=== PATIENT | male | born 1945 | race Caucasian/White ===

== ENCOUNTER 2025-02-11 08:30 | Emergency (ER) | payer MEDICARE, BC, SELFPAY ==
[2025-02-11 08:37] VITALS: BP 135/73; PULSE 60; RESP 18; TEMP 36.6; O2SAT 97; BMI 36.6
--- NOTE | 2025-02-11 08:37 | ED_ITS ---
HPI - General Adult General Date Seen: 02/11/25 Chief complaint: Urogenital Problems, Male Stated complaint: urinary problems Time Seen by Provider: 02/11/25 08:32 History of Present Illness HPI narrative: 80-year-old male with a history of hypertension, hypothyroidism, hyperlipidemia, cardiomyopathy, atrial fibrillation (on carvedilol, Lipitor, losartan, Eliquis, levothyroxine), and a history of thrombocytopenia (patient his say that it has been under surveillance for years and that he has seen hematology to the mail system and that he does not have a clear etiology for it. It is not thought to be ITP, TTP, or autoimmune. No known history of other bone marrow malignancy. Platelet count typically runs in the 60s and 70s. Hematology has recommended that if the platelet count never dropped below 50,000, that white be an appropriate time to than move forward with bone marrow biopsy and further workup). He presents to the ER this morning with development of dark colored reddish urine that began last night. No other symptoms. He has not noticed any trouble urinating, urgency, frequency, dysuria, hesitancy. No urinary obstruction. No abdominal pain, bladder pain, flank pain. No fever, chills, nausea. No weakness. He has no known injury. 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 They been working very hard getting their property here in [place] ready for summer and so he has been doing a lot of physical labor. No known injury. No other unusual bruising or bleeding. He just noticed that the urine was dark and bloody last night and again this morning. He is concerned that his platelet count might have dropped lower and could be contributing to the bleeding. Related Data Allergies Allergy/AdvReac Type Severity Reaction Status Date / Time erythromycin base Allergy Intermediate Rash Verified 02/11/25 08:37 PFSH PFS Social History Smoking Status: Never smoker How often do you have a drink containing alcohol: never How often do you have six or more drinks on one occasion: Never AUDIT-C Alcohol total score: 0 Non-prescribed substance use: denies use Exam Narrative: Exam Narrative: Constitutional: Appears well-developed and well-nourished. Alert. Conversant. Non toxic. HENT: Head: Atraumatic. Nose: Nose normal. Mouth/Throat: Oral mucosa is clear and moist. no trismus. Pharynx normal. Tonsils symmetric. No tonsillar enlargement, erythema, or exudate. Eyes: Conjunctivae normal. EOM normal. Pupils equal, round, and reactive to light. No scleral icterus. Neck: Normal range of motion. Neck supple. No tracheal deviation present. Cardiovascular: Normal rate, regular rhythm. No gallop. No friction rub. No murmur heard. Pulmonary/Chest: Effort normal. No stridor. No respiratory distress. No wheezes. No rales. No rhonchi . Abdominal: Soft. Bowel sounds normal. No distension. No mass. No tenderness. No rebound. No guarding. No CVA tenderness. Musculoskeletal: RUE: Normal range of motion. No tenderness. No deformity LUE: Normal range of motion. No tenderness. No deformity RLE: Normal range of motion. No edema. No tenderness. No deformity LLE: Normal range of motion. No edema. No tenderness. No deformity Neurological: Alert and oriented to person, place, and time. Normal strength. CN II-VII intact. No sensory deficit. GCS eye subscore is 4. GCS verbal subscore is 5. GCS motor subscore is 6. Normal coordination Skin: Skin is warm and dry. No rash noted. No pallor. Normal capillary refill. Psychiatric: Normal mood. Normal affect. Const: Vital Signs, click to edit/add: Vital Signs - 24 hr 02/11/25 08:37 Temperature 97.8 F Pulse Rate [Pulse Oximeter] 60 Respiratory Rate 18 Blood Pressure [Ri ght Upper Arm] 135/73 Pulse Oximetry 97 Oxygen Delivery Me thod Room Air Course Vital Signs Vital signs: Initial Vital Signs Temperature 97.8 F 02/11/25 08:37 Temperature Source Temporal Artery Scan 02/11/25 08:37 Pulse Rate 60 02/11/25 08:37 Respiratory Rate 18 02/11/25 08:37 Blood Pressure 135/73 02/11/25 08:37 Blood Pressure Mean 93 02/11/25 08:37 Pulse Oximetry 97 02/11/25 08:37 Oxygen Delivery Method Room Air 02/11/25 08:37 Vital Signs Temperature 97.8 F 02/11/25 08:37 Pulse Rate 60 02/11/25 08:37 Respiratory Rate 18 02/11/25 08:37 Blood Pressure 135/73 02/11/25 08:37 Pulse Oximetry 97 02/11/25 08:37 Oxygen Delivery Method Room Air 02/11/25 08:37 Temperature 97.8 F 02/11/25 08:37 Pulse Rate 60 02/11/25 08:37 Respiratory Rate 18 02/11/25 08:37 Blood Pressure 135/73 02/11/25 08:37 Pulse Oximetry 97 02/11/25 08:37 Oxygen Delivery Method Room Air 02/11/25 08:37 Medical Decision Making MDM Narrative Medical decision making narrative: Very pleasant 80-year-old gentleman who is on Eliquis for AFib and has a history of thrombocytopenia (idiopathic, typically runs in the 60s and 70s) presenting to the ER today with gross hematuria that started yesterday. No other symptoms with the hematuria. No UTI symptoms. No flank pain. No dizziness. Differential here is broad. Urinalysis confirms hematuria but shows absence of other signs of infection such as pyuria or nitrite. Kidney function tests are reassuring. No signs of acute renal failure. He has been very physically active lately which raise consideration for possible rhabdo. CK is detectable at 52 but not not dangerously elevated. CBC today shows platelet count actually up from his baseline up to 85. Hemoglobin is 13. White count slightly low at 3.5. CT scan of his abdomen pelvis is undertaken to look for stone and shows a bladder stone and a large prostate. No evidence for any obstructing kidney stones or hydronephrosis or other masses. At this point the patient is hemodynamically stable. Overall his urine is clearing here in the ER and is less bloody than it was last night. With reasonable clinical confidence that he safe for discharge and close outpatient follow-up with Urology. There is no signs of infection, kidney failure, urinary obstruction associated with this hematuria or bladder stone. Would recommend that he continue his regular medications for now. He will follow-up v with his urologist in the [facility] system. Lab Data Labs: Lab Results 02/11/25 02/11/25 Range/Units 09:20 09:25 WBC 3.52 L (4.50-11.00) K/uL RBC 4.15 L (4.30-5.90) m/uL Hgb 13.0 L (13.5-17.5) gm/dL Hct 37.9 (37.0-53.0) % MCV 91 (80-100) fL MCH 31 (26-34) pg MCHC 34 (32-36) gm/dL RDW Coeff of Niko 11.4 L (11.5-15.5) % Plt Count 85 L (140-440) K/uL Neut % (Auto) 56.0 (42.0-72.0) % Lymph % (Auto) 29.5 (20-44) % Pepin % (Auto) 11.1 H (0.0-11.0) % Eos % (Auto) 3.1 (0.0-7.0) % Baso % (Auto) 0.3 (0.0-3.0) % Neut # (Auto) 2.00 (1.7-7.0) K/uL Lymph # (Auto) 1.00 (0.90-2.90) K/uL Pepin # (Auto) 0.40 (0.00-0.90) K/UL Eos # (Auto) 0.10 (0.00-0.50) K/uL Baso # (Auto) 0.00 (0.00-0.30) K/uL Abs Immat Gran (auto) 0.00 (0.00-0.30) K/uL Imm/Tot Granulo (auto) 0.0 % Sodium 140 (135-149) mmol/L Potassium 4.4 (3.6-5.1) mmol/L Chloride 107 (96-114) mmol/L Carbon Dioxide 27 (20-32) mmol/L Anion Gap 6 L (7-15) mEq/L BUN 31 H (7-30) mg/dL Creatinine 1.1 (0.5-1.5) mg/dL Estimated Creat Clear 54.38 Estimated GFR 67 ml/min Glucose 99 (60-115) mg/dL Calcium 9.6 (8.4-10.6) mg/dL Total Creatine Kinase 52 L (54-186) U/L Urine Color Yellow (Yellow) Urine Appearance Clear (Clear) Urine pH 6.0 (5.0-8.5) Ur Specific Stevenson 1.020 (1.000-1.030) Urine Protein 1+ A (Negative) Urine Glucose (UA) Negative (Negative) Urine Ketones Negative (Negative) Urine Blood 3+ A (Negative) Urine Nitrite Negative (Negative) Urine Bilirubin Negative (Negative) Urine Urobilinogen 0.2 (0.2-1.0) Ur Leukocyte Esterase Negative (Negative) Urine RBC 50-100 A (0-2) Urine WBC 0-2 (0-5) Ur Squamous Epith Cells Few (None-Few) Urine Bacteria None (None) Imaging Data CT scan - abdomen: Attestation: I have reviewed the pertinent imaging results. Radiologist's impression: IMPRESSION: The kidneys are normal in size. There is no visible mass on this noncontrast study. No calcified calculus within either kidney or within the ureters. There is a stone in the bladder measuring 12 millimeters. Bladder wall thickness is normal. The prostate is significantly enlarged. Other nonacute appearing findings as above Discharge Plan Discharge Clinical Impression: Bladder calculi, Hematuria, Enlarged prostate Patient Disposition: Home, Self-Care Condition: Stable Instructions: Hematuria (ED), Bladder Stones (ED) Additional Instructions: So far your workup looks reassuring. Your platelet count is still low but is 85 today. Your kidney function looks good. Your urine sample confirms the blood but no signs of infection. Your scans show sign that you have a bladder stone which is probably rubbing the inside of your bladder and causing this bloody urine. It is okay for you to take her trip to [place]. Continue your regular meds. As we discussed, if you have any concerns such as fever, worsening blood in your urine, inability to urinate or blockage of your urethra, abdominal pain or kidney pain, please return to the your nearest ER for evaluation. Please follow-up with your urologist within the next 1-3 weeks for recheck. Follow Up/Referrals: Provider,Not a Local [Primary Care Provider, Family Practice] Stand Alone Forms: [employer] Info Instructions
[2025-02-11 09:28] LABS: Basophils Percent Auto 0.3 % (0.0-3.0); Eosinophils Percent Auto 3.1 % (0.0-7.0); Hematocrit 37.9 % (37.0-53.0); Lymphocytes Percent Auto 29.5 % (20-44); Mean Corpuscular HGB Conc 34 gm/dL (32-36); Mean Corpuscular Hemoglobin 31 pg (26-34); Mean Corpuscular Volume 91 fL (80-100); Monocytes Percent Auto 11.1 % (0.0-11.0); Platelet Count* 85 K/uL (140-440); RDW Coefficient of Variation % 11.4 % (11.5-15.5); Red Blood Count 4.15 m/uL (4.30-5.90); White Blood Count* 3.52 K/uL (4.50-11.00)
[2025-02-11 09:35] LABS: Appearance Urine Clear (Clear); Bilirubin Urine Negative (Negative); Blood Urine 3+ (Negative); Color Urine Yellow (Yellow); Glucose Urine Negative (Negative); Ketones Urine Negative (Negative); Leukocyte Esterase Urine Negative (Negative); Nitrite Urine Negative (Negative); Protein Urine 1+ (Negative); Urobilinogen Urine 0.2 (0.2-1.0)
[2025-02-11 09:38] LABS: Slide Review Reflex No
[2025-02-11 09:42] LABS: RBC Urine 50-100 (0-2); Squamous Epithelial Cell Urine Few (None-Few); WBC Urine 0-2 (0-5)
[2025-02-11 09:52] LABS: Chloride* 107 mmol/L (96-114); Potassium* 4.4 mmol/L (3.6-5.1); Sodium* 140 mmol/L (135-149)
[2025-02-11 09:55] LABS: Anion Gap 6 mEq/L (7-15); Blood Urea Nitrogen* 31 mg/dL (7-30); Carbon Dioxide* 27 mmol/L (20-32); Creatine Kinase* 52 U/L (54-186); Creatinine* 1.1 mg/dL (0.5-1.5); Est. Creatinine Clearance* 54.38; Estimated Glomerular Filt Rate 67 ml/min
[2025-02-11 09:56] LABS: Calcium* 9.6 mg/dL (8.4-10.6); Glucose* 99 mg/dL (60-115)
--- NOTE | 2025-02-11 10:30 | CRLHL7_ITS ---
For Patients: As a result of the 21st Century Cures Act, medical imaging exams and procedure reports are released immediately into your electronic medical record. You may view this report before your referring provider. If you have questions, please contact your health care provider. INDICATION: Hematuria COMPARISON: None TECHNIQUE: CT examination of the abdomen and pelvis was performed without intravenous contrast. Thin section axial images were obtained from the lung bases through the pubic symphysis. Oral contrast was not administered. Please note that all CT scans at this facility use dose modulation, iterative reconstruction, and/or weight-based dosing when appropriate to reduce radiation dose to as low as reasonably achievable. FINDINGS: LUNG BASES: Linear opacities at the lung bases are likely due to atelectasis.Heart size top-normal at the lung bases. Vascular calcifications and valvular calcifications noted.. LIVER/BILIARY SYSTEM:The liver is normal in size and configuration given the lack of intravenous contrast. There is no visible focal mass and there is no intra- or extra hepatic biliary ductal dilatation.The gall bladder appears normal. ADRENALS: Normal non-contrast appearance KIDNEYS, URETERS and BLADDER:The kidneys are normal in size. There is no visible renal cortical mass on this noncontrast study. There are no calculi within the kidneys or within the ureters. The ureters are not dilated. The bladder is distended. The prostate is significantly enlarged. There is a stone in the bladder measuring 12 millimeters. The most common cause of stones in the bladder is chronic stasis. SPLEEN:Normal non-contrast appearance. PANCREAS: Normal non-contrast appearance. RETROPERITONEUM and MESENTERY: There is no mass, adenopathy or aortic aneurysm. Atherosclerotic vascular calcification GASTROINTESTINAL SYSTEM: There is no evidence of diverticulitis, colitis, mechanical obstruction, or appendicitis. The small bowel as visualized appears normal.Fecal retention and scattered diverticulosis PELVIS: No free fluid or adenopathy.. OSSEOUS STRUCTURES and ABDOMINAL WALL: There is an age-appropriate appearance of the osseous structures.No significant abdominal wall defect. OTHER: No free fluid or free air. IMPRESSION: The kidneys are normal in size. There is no visible mass on this noncontrast study. No calcified calculus within either kidney or within the ureters. There is a stone in the bladder measuring 12 millimeters. Bladder wall thickness is normal. The prostate is significantly enlarged. Other nonacute appearing findings as above Please note that all CT scans at this facility use dose modulation, iterative reconstruction, and/or weight-based dosing when appropriate to reduce radiation dose to as low as reasonably achievable. Dictated by Winston Mackay MD @ 02/11/2025 11:11:42 AM (Electronically Signed)
--- OUTSIDE RECORDS SUMMARY | 2025-02-11 10:45 | XMS_ITS | Clinical Summary ---
Author Organization [facility] Address [address] [place] [id number] Care Team Providers Care Chairman & Chief Executive Officer Name Role Phone Sly Yanes MD Primary Care Provi gail Allergies Active Allergy Reactions Criticality Noted Date Comments Erythromycin Hives,Rash 08/19/2009 Medications calcium carbonate-vitam in D3, 600 mg-400 unit, (CALCIUM 600 + D) tabletIndicatio ns:vitamin & calcium supplement Take 1 tablet by mouth once daily. Indications: vitamin & calcium supplement Active carvedilol (COREG) 12.5 mg tabletIndicatio ns:hypertension Take 12.5 mg by mouth 2 times daily with meals. Indications: HYPERTENSION Active losartan (COZAAR) 25 mg tabletIndicatio ns:hypertension Take 25 mg by mouth once daily. Takes in the morning. Indications: HYPERTENSION Active multivitamin-mi nerals therapeutic tabletIndicatio ns:mineral deficiency prevention,rian min deficiency prevention Take 1 tablet by mouth once daily. Indications: MINERAL DEFICIENCY PREVENTION, VITAMIN DEFICIENCY PREVENTION Active OMEGA-3S/DHA/EP A/FISH OIL (OMEGA 3 ORAL)Indication s:for heart health. Take 1,200 mg by mouth once daily. Indications: for heart health. Active ascorbic acid, vitamin C, (ASCORBIC ACID WITH EMILIANO HIPS) 500 mg tabletIndicatio ns:vitamin C deficiency Take 500 mg by mouth once daily. Active levothyroxine (SYNTHROID) 125 mcg tabletIndicatio ns:hypothyroidi sm Take 125 mcg by mouth once daily. Active apixaban (ELIQUIS) 5 mg tablet Take 5 mg by mouth 2 times daily. 1 Active atorvastatin (LIPITOR) 20 mg tablet Take 1 Tablet by mouth at bedtime. 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 Immunizations Immunization Administration Dates Next Due DTP 07/02/2012 Hepatitis A (Adult) 07/02/2012,08/19/2011 Influenza, IIV3 (Age >=3 years) 07/02/2012,06/22 Pneumococcal Poly,23-Valent (Pneumovax) 09/30/19 12,11/26/2003 Zoster (Zostavax-ZVL, live) 06/22/2009 Social History Tobacco Use Types Packs/Day Years Used Date Smoking Tobacco: Never Passive Smoke Exposure: Never Smokeless Tobacco: Never Tobacco Cessation:Counseling Given: No Alcohol Use Standard Drinks/Week Comments Yes 0 (1 standard drink = 0.6 oz pur e alcohol) Sex and Gender Information Value Date Recorded Sex Assigned at Not on file Legal Sex Male 6:29 AM [employer] Gender Identity Not on file Sexual Orientation Not on file Obstetrics History Last Filed Vital Signs Vital Sign Reading Time Taken Comments Blood Pressure 129/65 08/22/2023 1:37 PM [employer] Pulse 60 08/22/2023 1:37 PM [employer] Temperature 36.1 C (97 F) 08/22/2023 1:37 PM [employer] Respiratory Rate 18 08/22/2023 1:37 PM [employer] Oxygen Saturation 99% 08/22/2023 1:37 PM [employer] Inhaled Oxygen Concentration - - Weight 102.2 kg (225 lb 4.8 oz) 023 11:16 AM [employer] Height 182.9 cm (6' 0.01) 08/22/2023 1 1:16 AM [employer] Body Mass Index 30.55 08/22/2023 11:16 AM [employer] Plan of Treatment Health Maintenance Due Date Last Done Comments Tdap 02/09/1956 Depression screening for age 12+ 1956 Tetanus booster 1964 Zoster (shingles) series for age 50+ (2 of 3) 08/17/2009 06/22/2009 Pneumococcal series for age 50+ (2 of 2 - PCV) 09/30/2012 09/30/2011, 11/26/2003 RSV vaccine for adults or (1 - 1-dose 75+ series) 02/09/2019 BMI (ht and wt on same day) for age 18+ 06/21/2022 06/21/2021 COVID-19 vaccine series ( - season) 2024 09/03/2021, 11/30/2020, 11/09/2020 Influenza Vaccine (Season Ended) 2025 07/02/2012, 06/22/2009 Hepatitis B series for 19+ Aged Out N o longer eligible based on patient's age to complete this topic Insurance MEDICARE PART B HB ONLY [employer] [place] BLUE HB ONLY MEDICARE PART A HB ONLY Advance Directives * Full Code (Latest Code Status on File) Date Activated Date Inactivated Comments 08/22/2023 10:56 AM 08/22/2023 4:41 PM Question Answer Comments Code Status Discussion: Reviewed Preferences * Full Code Date Activated Date Inactivated Comments 06/25/2021 12:21 PM 06/26/2021 2:28 AM Question Answer Comments Code Status Discussion: Not Discussed * Full Code Date Activated Date Inactivated Comments 02/08/2019 6:29 PM 02/09/2019 1:45 PM Question Answer Comments Code Status Discussion: Discussed * Full Code Date Activated Date Inactivated Comments 04/06/2018 8:10 AM 04/06/2018 12:57 PM * Full Code Date Activated Date Inactivated Comments 11/15/2012 8:06 AM 11/15/2012 8:57 AM Care Teams Chairman & Chief Executive Officer Relationship Specialty Start Date End Date Sly Yanes MD PCP - General Family Practice 03/03/16
--- OUTSIDE RECORDS SUMMARY | 2025-02-11 10:45 | XMS_ITS | Clinical Summary ---
Author Organization [facility] Address [address] [place] [address] Care Team Providers Care Stud Sheep Farmer Name Role Phone Lisa Francisco D.O. Primary Care Provider [phone] Source Comments Patient records contain information from all sites at [facility]. For routine questions regarding patient records, call [phone] during business hours, M-F 8:00 AM - 5:00 PM Central Time. Record requests for emergency care only can be directed to [phone] at any time.[facility] Allergies Active Allergy Reactions Criticality Noted Date Comments Erythromycin Hives (Reselect Reaction),Rash Medications calcium carbonate-vitami n D3 1,500 mg (600 mg calcium)-400 unit per tablet Take 1 tablet by mouth daily with breakfast. Active ascorbic acid, vitamin C, (VITAMIN C) 500 mg tablet Take by mouth daily. 2 Active geqal-4m-hux-epa -fish oil 350-100-225 mg capsule Take 1,200 mg by mouth daily. Active B complex-vitamin (SUPER B-50) capsule Take 1 capsule by mouth daily. Active multivitamin-min ivxue-MA-jcjsugs e-lutein (CENTRUM SILVER) 0.4-300-250 mg-mcg-mcg tablet Take 1 tablet by mouth daily. Active DME CPAPIndications: Apnea Sleep Obstructive DME Order 1 each 11 1 Active DME CPAPIndications: Apnea Sleep Obstructive DME Order 1 each 4 Active amoxicillin (AmoxiL) 500 mg capsule TAKE FOUR CAPSULES BY MOUTH ONE HOUR BEFORE APPOINTMENT 4 capsule 2 4 Active amoxicillin (AmoxiL) 500 mg capsule TAKE FOUR CAPSULES BY MOUTH ONE HOUR BEFORE APPOINTMENT 8 capsule 1 4 Active apixaban (Eliquis) 5 mg tablet Take 1 tablet (5 mg total) by mouth 2 (two) times a day. 180 tablet 3 4 05/20/20 Active atorvastatin (Lipitor) 20 mg tablet Take 1 tablet (20 mg total) by mouth daily. 90 tablet 3 4 Active carvediloL (Coreg) 12.5 mg tablet Take 1 tablet (12.5 mg total) by mouth 2 (two) times a day. 180 tablet 4 4 Active levothyroxine (Euthyrox) 125 mcg tablet Take 1 tablet (125 mcg total) by mouth daily. 90 tablet 4 4 Active losartan (Cozaar) 25 mg tablet Take 1 tablet (25 mg total) by mouth daily. 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 Hyperlipidemia On Treatment 03/19/2018 Hypothyroidism On Replacement 03/19/2018 Thrombocytopenia 02/09/2015 Overview (02/14/2017): Thrombocytopenia NOS Cardiomyopathy 09/30/2011 Overview (02/14/2017): Cardiomyopathy NOS Dermatochalasis Right 08/19/2009 Resolved Problems Problem Noted Date Diagnosed Date Resolved Date COVID-19 Infection 05/22/2022 3 Pain Chest 02/08/2019 04/26/2023 Hypertension Essential Primary 03/19/2018 03/25/2019 Encounters Date Type Department Care Team Description 01/11/2025 CPAP Download Remote Patient Monitoring [facility] [address] [place] [address] [place] [address] [facility], Provider, 12/11/2024 CPAP Download Remote Patient Monitoring [facility] [address] [place] [address] [facility], Provider, from Last 3 Months Immunizations Immunization Administration Dates Next Due DTP 07/02/2012 HZV (ZOSTAVAX) 06/22/2009 HepA Adult 07/02/2012,08/19/2011 Influenza Split 08/10/2006, 5,07/16/2004,2002,07/13/2001 Influenza TIV (IM) 07/02/2012,06/22/2009 Influenza high dose QV(65 ye ars or older) (PF) 07/12/2022,07/08/2021,06/29/2020 Influenza, Seasonal, Injectable 07/02/20 12,07/23/2007,08/10/2006,2004,07/16/2004,08/04/2003,07/13/2001 Influenza, Unspecified 06/28/2016,2013,07/31/2013,2011,07/14/2011,08/27/2010,07/23/2007 PCV13 02/09/2015 PPSV23 09/30/2011,12/15/2003 RZV (SHINGRIX) 04/07/2020 SARS-COV-2 (COVID-19) - PFIZ ER (Discontinued)(12 years or older) 09/03/2021,11/30/2020,11/09/2020 Td Preservative Free (TENIVA C, DECAVAC) 12/15/2003 Tdap 04/25/2022,07/02/2012 influenza trivalent high dos e (HD)(PF) 06/26/2019,06/27/2018,06/28/2017,2015,07/01/2015 influenza trivalent vaccine (6 months and older)(PF) 06/22/2009,08/06/2008 Family History Medical History Relation Name Comments Coronary artery disease Father Wilmer Orellana Hypertension Father Wilmer Orellana Colon cancer Maternal Grandmother [place] Leo Vesledal Obesity Maternal Grandmother [place] Vesledal Migraines Mother Miladis Orellana Obesity Mother Miladis Orellana Unexplained Mother Miladis Orellana Valvular heart disease Mother Miladis Orellana Diabetes Paternal Grandmother VANESSA VESLADAL Obesity Paternal Grandmother VANESSA NIXONLADAL Relation Name Status Comments Father Wilmer Orellana (Age 67) Maternal Grandmother Vanessa Nixonledal Mother Miladis Orellana (Age 72) Paternal Grandmother VANESSA NIXONLADAL Social History Tobacco Use Types Packs/Day Years Used Date Smoking Tobacco: Never Passive Smoke Exposure: Never Smokeless Tobacco: Never Tobacco Cessation:Counseling Given: Not Answered Alcohol Use Standard Drinks/Week Comments Yes 1 (1 standard drink = 0.6 oz pur e alcohol) [facility] Utilities Answer Date Recorded In the past 12 months has e [employer], gas, oil, or water mVisum threatened to shut off services in your home? No 02/26/2024 Humiliation, Afraid, Rape, and Kick questionnair e Answer Date Recorded Within the last year, have y ou been afraid of your partner or ex-partner? No 09/05/2022 Within the last year, have y ou been humiliated or emotionally abused in other ways by your partner or ex-partner? No Within the last year, have y ou been kicked, hit, slapped, or otherwise physically hurt by your partner or ex-partner? No 09/05/2022 Within the last year, have y ou been raped or forced to have any kind of sexual activity by your partner or ex-partner? No 09/05/2022 Social Connection and Isolat ion Panel [NHANES] Answer Date Recorded In a typical week, how many times do you talk on the phone with family, friends, or neighbors? More than three times a week 09/05/2022 How often do you get togethe r with friends or relatives? Three times a week 09/05/2022 How often do you attend chur ch or advent services? More than 4 times per year 09/05/2022 Do you belong to any clubs o r organizations such as roman catholic groups, unions, fraternal or athletic groups, or school groups? Yes 09/05/2022 How often do you attend meet ings of the clubs or organizations you belong to? More than 4 times per year 09/05/2022 Are you , , di vorced, , never , or living with a partner? 09/05/2022 AUDIT-C Answer Date Recorded Q1: How often do you have a drink containing alc ohol? Monthly or less 09/05/2022 Q2: How many drinks containi ng alcohol do you have on a typical day when you are drinking? 1 or 2 09/05/2022 Q3: How often do you have si x or more drinks on one occasion? Never 09/05/2022 Overall Financial Resource Strain (CARDIA) Answe r Date Recorded How hard is it for you to pa y for the very basics like food, housing, medical care, and heating? Not hard at all 09/05/2022 PHQ-2 Answer Date Recorded PHQ-2 Score 0 05/20/2024 [facility] - Occupational Stress Questionnaire Answer Date Recorded Do you feel stress - tense, restless, nervous, or anxious, or unable to sleep at night because your mind is troubled all the time - these days? Not at all 09/05/2022 Exercise Vital Sign Answer Date Recorde d On average, how many days pe r week do you engage in moderate to strenuous exercise (like a brisk walk)? 5 days 02/26/2024 On average, how many minutes do you engage in exercise at this level? 60 min 02/26/2024 Hunger Vital Sign Answer Date Recorded Within the past 12 months, y ou worried that your food would run out before you got the money to buy more. Never true 02/26/20 24 Within the past 12 months, t he food you bought just didn't last and you didn't have money to get more. Never true 02/26/2024 PRAPARE - Transportation Answer Date Re corded In the past 12 months, has l ack of transportation kept you from medical appointments or from getting medications? No 11/2023 In the past 12 months, has l ack of transportation kept you from meetings, work, or from getting things needed for daily living? No 02/26/2024 Depression Answer Date Recor ded PHQ-9 Total Score (max 27) 0 04/26 Nutrition Answer Date Recorded On average, how many serving s of fruits and vegetables do you eat per day (serving size is equal to 1 cup or approximately the size of a tennis ball)? 3-5 02/26/2024 Dental Answer Date Recorded Dental: Regular Dentist Yes 04/18/20 Employment Answer Date Recorded Employment status Retired 02/26/2024 Housing Stability Answer Date Recorded What is your living situation today? I have a [facility] place to live 02/26/2024 Education Answer Date Recorded What is the highest level of school you have completed or the highest degree you have received? 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 Gender Identity Male 03/15/2018 8:53 AM CDT Sexual Orientation Straight 03/15/2018 8: 53 AM CDT Last Filed Vital Signs Vital Sign Reading Time Taken Comments Blood Pressure 106/68 05/20/2024 10:09 AM CDT Pulse 59 05/20/2024 10:09 AM CDT Temperature 36.3 C (97.3 F) 05/20/2024 10:09 AM CDT Respiratory Rate 18 05/23/2022 11:50 AM CDT Oxygen Saturation 96% 02/28/2024 8:32 AM CDT ROOM AIR Inhaled Oxygen Concentration - - Weight 103 kg (226 lb 13.7 oz) 05/20/2024 10:09 AM CDT Height 175 cm (5' 8.9) 05/20/2024 10:09 AM CDT Body Mass Index 33.6 05/20/2024 10:09 AM CDT Plan of Treatment Upcoming Encounters Date Type Department Care Team (Latest Contact Info) Description 04/04/2025 8:00 AM CDT Appointment Department of Cardiovascular Diseases in [place], [place] [address] [place] [phone] Vlad Andrews M.D. [address] [place] [phone] Discharge Disposition: Home or Self Care 04/04/2025 9:10 AM CDT Appointment Department of Laboratory Medicine in [place], [place] [address] [place] [phone] Vlad Andrews M.D. 300 [facility] [place] [phone] 04/10/2025 10:45 AM CDT Office Visit Department of Cardiovascular Diseases in [place], [place] [address] [address] Vlad Andrews M.D. [address] [facility] [place] [phone] 05/22/2025 9:20 AM CDT Comprehensive Visit Department of Family Medicine, [facility], in [place], [place] [address] [address] Lisa Francisco D.O. [address], [place] [phone] Health Maintenance Due Date Last Done Comments CT Colonography 1945 Cologuard 1945 RSV vaccine - (32-36 weeks) or 60+ years (1 - 1-dose 75+ series) 02/09/2019 COVID-19 Vaccine ( season) 2024 09/03/2021, 11/30/2020, 11/09/2020 Depression Screening (Annual PHQ-2) 09/25/2024 Fall Risk Screen (Annual) 09/25/2024 Creatinine Level (Kidney Function Test) 05/06/2025 05/06/2024, 04/30/2024, 02/23/2024, Additional history exists Potassium Level 05/06/2025 05/06/2024, 02/2024, 02/23/2024, Additional history exists Sodium Level 05/06/2025 05/06/2024, 080 02/2024, 02/23/2024, Additional history exists Thyroid Stimulating Hormone (TSH) test for thyroid function 05/06/2025 05/06/2024, 02/23/2024, 04/04/2023, Additional history exists Visit: Medicare Annual Wellness 05/07/2025 Postponed from 1945 (Patient Refused) Visit: Annual, age 65+ (or Medicare and <65) 05/20/2025 05/20/2024 Colonoscopy 08/22/2025 08/22/2023, 03/25, 04/06/2018, Additional history exists Colorectal Cancer Surveillance 08/22/2025 DTaP,Tdap,and Td Vaccines (4 - Td or Tdap) 04/25/2032 04/25/2022, 07/02/2012, 07/02/2012, Additional history exists Hepatitis A Vaccines Completed 07/02/2012, 08/19/20 11 Pneumococcal vaccine (50+ years) Completed 02/09/2015, 09/30/2011, 12/15/2003 Zoster Vaccines Completed 09/29/2020, 03/25, 06/22/2009 Influenza Vaccine Completed 07/09/2024, , 07/12/2022, Additional history exists IPV Vaccines Aged Out No longer eligi ble based on patient's age to complete this topic Procedures Procedure Name Priority Date/Time Associated Diagnosis Comments THYROID-STIMULATING HORMONE-SENSITIVE (S-TSH) Routine 05/06/2024 9:40 AM CDT Hyperlipidemia On Treatment BASIC METABOLIC PANEL, S/P Routine 05/06/2024 9:40 AM CDT Cardiomyopathy (HCC) from Last 3 Months or Most Recently Relevant to Health Maintenance Results * S-TSH (Thyroid-Stimulating Hormone - Sensitive) (05/06/2024 9:40 AM CDT) TSH, Sensitive 1.6 0.3 - 4.2 mIU/L 05/06/2024 1:29 PM CDT OWAT Blood (Blood, Venous) 05/06/2024 9:40 AM CDT 05/06/2024 12:46 PM CDT Sly Yanes M.D. LAB BLOOD ADD-ON Final Result Performing Organization Address City/[facility]/ZIP Co de Phone Number [facility] [address] [place] [address], [facility] OWAT [facility] [address] [place] [address] * (ABNORMAL) Basic Metabolic Panel (05/06/2024 9:40 AM CDT) Potassium, P 3.9 3.6 - 5.2 mmol/L 05/06/2024 1:21 PM CDT OWAT Sodium, P 142 135 - 145 mmol/L 05/06/2024 1:21 PM CDT OWAT Chloride, P 106 98 - 107 mmol/L 05/06/2024 1:21 PM CDT OWAT Bicarbonate, P 26 22 - 29 mmol/L 05/06/2024 1:21 PM CDT OWAT Anion Gap, P 10 7 - 15 05/06/2024 1:21 PM CDT OWAT BUN (Blood Urea Nitrogen), P 33(H) 8 - 24 mg/dL 05/06/2024 1:21 PM CDT OWAT Creatinine 1.06 0.74 - 1.35 mg/dL 05/06/2024 1:21 PM CDT OWAT Estimated GFR (eGFR) 71 >=60 mL/min/BSA 05/06/2024 1:21 PM CDT OWAT Comment: Estimated GFR calculated using the 2020 CKD_EPI creatinine equation. Calcium, Total, P 9.0 8.8 - 10.2 mg/dL 05/06/2024 1:21 PM CDT OWAT Glucose, P 108 70 - 140 mg/dL 05/06/2024 1:21 PM CDT OWAT Blood (Blood, Venous) 05/06/2024 9:40 AM CDT 05/06/2024 12:46 PM CDT us Lisa Francisco D.O. LAB BLOOD ADD-ON Final Result Performing Organization Address City/[facility]/ZIP Co de Phone Number [facility] [address] [place] [address], [place] OWAT [facility] [place] [address] [facility] [place] [address] from Last 3 Months or Most Recently Relevant to Health Maintenance Insurance MEDICARE [facility] Care Teams Stud Sheep Farmer Relationship Specialty Start Date End Date Lisa Francisco D.O. [address] [place] [phone] PCP - General Family Medicine 11/06/24
--- OUTSIDE RECORDS SUMMARY | 2025-02-11 10:45 | XMS_ITS | Encounter Summary ---
Author Organization [facility] Address [address] [place] [address] Care Team Providers Care Care Team Coordinator Scheduler Name Role Phone Lisa Francisco D.O. Primary Care Provider [phone] Encounter Details Date Type Department Care Team (Late st Contact Info) Description 01/11/2025 CPAP Download Remote Patient Monitoring [facility] [address] [place] [address] [facility], Provider, Social History Tobacco Use Types Packs/Day Years Used Date Smoking Tobacco: Never Passive Smoke Exposure: Never Smokeless Tobacco: Never Alcohol Use Standard Drinks/Week Comments Yes 1 (1 standard drink = 0.6 oz pur e alcohol) [facility] Utilities Answer Date Recorded In the past 12 months has [employer], gas, oil, or water [employer] threatened to shut off services in your [...] 09/05/2022 How often do you attend chur or temple services? More than 4 times per year 09/05/2022 Do you belong to any clubs o r organizations such as christian groups, unions, fraternal or athletic groups, or [...] Answer Date Recorded PHQ-2 Score 0 05/20/2024 [facility] - Occupational Stress Questionnaire Answer Date Recorded [...] your living situation today? I have a [facility] place to live 02/26/2024 Education Answer Date Recorded What is the highest level of school you have completed or the highest degree you have received? 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 [address] [place] [address] Discharge Disposition: Home or Self Care 04/04/2025 9:10 AM CDT Appointment Department of Laboratory Medicine in [address] [phone] Vlad Andrews M.D. [address] [place] [address] 04/10/2025 10:45 AM CDT Office Visit Department of Cardiovascular Diseases in [place], [place] [address] [place] [phone] Vlad Andrews M.D. [address] [place] [phone] 05/22/2025 9:20 AM CDT Comprehensive Visit Department of Family Medicine, [facility], in [place], [place] [address] [phone] Lisa Francisco D.O. [address] [place] [phone] documented as of this encounter Visit Diagnoses Not on filedocumented in this encounter Additional Health Concerns Assessment Noted Time PHQ-9 Depression Total Score: 0 04/26/20 9:12 AM CDT documented as of this encounter Care Teams Care Team Coordinator Scheduler Relationship Specialty Start Date End Date Lisa Francisco D.O. [address] [place] [phone] PCP - General Family Medicine 11/06/24 documented as of this encounter
--- OUTSIDE RECORDS SUMMARY | 2025-02-11 10:45 | XMS_ITS | Encounter Summary ---
Author Organization [facility] Address [address] [place] [address] Care Team Providers Care Warrant Server Name Role Phone Lisa Francisco D.O. Primary Care Provider [phone] Encounter Details Date Type Department Care Team (Late st Contact Info) Description 12/11/2024 CPAP Download Remote Patient Monitoring [facility] [address] [place] [address] [facility], Provider, Social History Tobacco Use Types Packs/Day Years Used Date Smoking Tobacco: Never Passive Smoke Exposure: Never Smokeless Tobacco: Never Alcohol Use Standard Drinks/Week Comments Yes 1 (1 standard drink = 0.6 oz pur e alcohol) [facility] Utilities Answer Date Recorded In the past 12 months has Lum[employer], gas, oil, or water flux - neutr[employer] threatened to shut off services in your [...] How often do you attend chur or sabianist services? More than 4 times per year 09/05/2022 Do you belong to any clubs o r organizations such as nondenominational groups, unions, fraternal or athletic groups, or [...] Answer Date Recorded PHQ-2 Score 0 05/20/2024 [facility] - Occupational Stress Questionnaire Answer Date [...] your living situation today? I have a [facility] place to live 02/26/2024 Education Answer Date Recorded What is the highest level of school you have completed or the highest degree you have received? 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 [address] [place] [address] Discharge Disposition: Home or Self Care 04/04/2025 9:10 AM CDT Appointment Department of Laboratory Medicine in [address] [phone] Vlad Andrews M.D. [address] [place] [address] 04/10/2025 10:45 AM CDT Office Visit Department of Cardiovascular Diseases in [place], [place] [address] [place] [phone] Vlad Andrews M.D. [address] [place] [phone] 05/22/2025 9:20 AM CDT Comprehensive Visit Department of Family Medicine, [facility], in [place], [place] [address] [phone] Lisa Francisco D.O. [address] [place] [phone] documented as of this encounter Visit Diagnoses Not on filedocumented in this encounter Additional Health Concerns Assessment Noted Time PHQ-9 Depression Total Score: 0 04/26/20 9:12 AM CDT documented as of this encounter Care Teams Warrant Server Relationship Specialty Start Date End Date Lisa Francisco D.O. [address] [place] [phone] PCP - General Family Medicine 11/06/24 documented as of this encounter
== END 2025-02-11 11:35 | disposition home or self-care (01) ==
PROVIDERS: Emergency Provider Emergency Medicine
DX: N21.0 Calculus in bladder (principal); R31.9 Hematuria, unspecified; N40.0 Benign prostatic hyperplasia without lower urinary tract symptoms
CPT/HCPCS: 36415; 74176; 80048; 81001; 82550; 85025; 99283; 99284

== ENCOUNTER 2025-05-15 20:08 | Emergency (ER) | payer MEDICARE, BC, SELFPAY ==
--- OUTSIDE RECORDS SUMMARY | 2025-04-04 07:39 | XMS_ITS | Encounter Summary ---
Author Organization [facility] Address [address] [place] [address] Care Team Providers Care Investment Banker Name Role Phone Lisa Francisco D.O. Primary Care Provider [phone] Reason for Referral * Cardiovascular-Diagnostic (Routine) - Closed Specialty Diagnoses / Procedures Referred By Contac t Referred To Contact Diagnoses Cardiomyopathy (HCC) Procedures Echo Transthoracic (TTE) Vlad Andrews M.D. [address] [place] [address] Phone: tel: fax: [facility] Referral ID Status Reason Start Date Expiration Date Visits Re quested Visits Authorized [id number] Closed 02/28/2024 02/27/2025 1 1 Reason for Visit * Cardiovascular-Diagnostic (Routine) - Closed Specialty Diagnoses / Procedures Referred By Contac t Referred To Contact Diagnoses Cardiomyopathy (HCC) Procedures Echo Transthoracic (TTE) Vlad Andrews M.D. [address] [place] [address] Phone: tel: fax: [facility] Region Referral ID Status Reason Start Date Expiration Date Visits Re quested Visits Authorized [id number] Closed 02/28/2024 02/27/2025 1 1 Encounter Details Date Type Department Care Team (Latest Contact Info) Description 04/04/2025 7:39 AM CDT - 04/04/2025 8:34 AM CDT Hospital Encounter Department of Cardiovascular Diseases in [place], [place] 300 [facility] [place] [address] Vlad Andrews M.D. 300 [place] [address] Cardiomyopathy (HCC) Discharge Disposition: Home or Self Care Social History Tobacco Use Types Packs/Day Years Used Date Smoking Tobacco: Never Passive Smoke Exposure: Never Smokeless Tobacco: Never Alcohol Use Standard Drinks/Week Comments Yes 1 (1 standard drink = 0.6 oz pur e alcohol) [facility] Utilities Answer Date Recorded In the past 12 months has e [employer], gas, oil, or water [employer] threatened to shut off services in your home? No 03/03/2025 Humiliation, Afraid, Rape, and Kick questionnair e [...] by your partner or ex-partner? No 09/05/2022 Hunger Vital Sign Answer Date Recorded Within the past 12 months, y ou worried that your food would run out before you got the money to buy more. Never true 03/03/20 25 Within the past 12 months, t he food you bought just didn't last and you didn't have money to get more. Never true 03/03/2025 PRAPARE - Transportation Answer Date Re corded In the past 12 months, has l ack of transportation kept you from medical appointments or from getting medications? No 05/2025 In the past 12 months, has l ack of transportation kept you from meetings, work, or from getting things needed for daily living? No 03/03/2025 Depression Answer Date Recor ded PHQ-9 Total Score (max 27) 0 04/26 Housing Stability Answer Date Recorded What is your living situation today? I have a [facility] place to live 03/03/2025 Education Answer Date Recorded What is the highest level of school you have completed or the highest degree you have received? 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 12/01/2011 atorvastatin (Lipitor) 20 mg tablet Take 1 tablet (20 mg total) by mouth daily. 90 tablet 3 05/20/2024 B complex-vitamin (SUPER B-50) capsule Take 1 capsule by mouth daily. calcium carbonate-vitamin D3 1,500 mg (600 mg calcium)-400 unit per tablet Take 1 tablet by mouth daily with breakfast. carvediloL (Coreg) 12.5 mg tablet Take 1 tablet (12.5 mg total) by mouth 2 (two) times a day. 180 tablet 4 05/20/2024 DME CPAPIndications:A pnea Sleep Obstructive DME Order 1 each 11 06/28/2021 levothyroxine (Euthyrox) 125 mcg tablet Take 1 tablet (125 mcg total) by mouth daily. 90 tablet 4 05/20/2024 losartan (Cozaar) 25 mg tablet Take 1 tablet (25 mg total) by mouth daily. 90 tablet 3 05/20/2024 multivitamin-mine csoj-OP-xewahmic- lutein (CENTRUM SILVER) 0.4-300-250 mg-mcg-mcg tablet Take 1 tablet by mouth daily. amoxicillin (AmoxiL) 500 mg capsule TAKE FOUR CAPSULES BY MOUTH ONE HOUR BEFORE APPOINTMENT 8 capsule 1 05/06/2024 apixaban (Eliquis) 5 mg tablet Take 1 tablet (5 mg total) by mouth 2 (two) times a day. 180 tablet 3 05/20/2024 5 DME CPAPIndications:A pnea Sleep Obstructive DME Order 1 each 02/07/2024 5 pwgrm-3o-odt-epa- fish oil 350-100-225 mg capsule Take 1,200 mg by mouth daily. 5 documented as of this encounter Plan of Treatment Upcoming Encounters Date Type Department Care Team (Late st Contact Info) Description 05/16/2025 8:00 AM CDT Procedure visit Department of Urology in [place], [place] [address] [place] [phone] Stuart Crocker M.D., M.S. [address] [place] [phone] 05/20/2025 12:00 PM CDT Clinical Communication Virtual Review in [place], [place] 200 [place] [address] 05/21/2025 1:40 PM CDT Comprehensive Visit Department of Dermatology in [place], [place] [address] [place] [address] [place] [address] Debby Martinez, AUTOMOTIVE ENGINEERING TEACHER, C.N.P., D.N.P. [address] [place] [phone] 05/22/2025 9:20 AM CDT Comprehensive Visit Department of Family Medicine, [facility], in [place], [place] [address] [place] [address] Lisa Francisco D.O. [address] [place] [address] documented as of this encounter Procedures Procedure Name Priority Date/Time Associated Diagnosis Comments (TTE) 2D ECHO DOPPLER COLOR Routine 04/04/2025 8:57 AM CDT Cardiomyopathy (HCC) documented in this encounter Results * (TTE) 2D ECHO DOPPLER COLOR (04/04/2025 8:57 AM CDT) [facility] Ejection Fraction 48 MC CV EIMS Sinus of Valsalva 40 MC CV EIMS Mid-Ascending Aorta 38 MC CV EIMS LV Mass Index 79 MC CV EIMS LV End-Diastolic Diameter 55 MC CV EIMS LV End-Systolic Diameter 42 MC CV EIMS LV End-Diastolic Volume 174 MC CV EIMS LV End-Systolic Volume 96 MC CV EIMS Left ventricular stroke volume index 56 MC CV EIMS Cardiac Output 6.75 MC CV EIMS Cardiac Index 3.08 MC CV EIMS LV Interventricular Septal Wall Thickness 9 MC CV EIMS LV Posterior Wall Thickness 8 MC CV EIMS LV Relative Wall Thickness 29 MC CV EIMS TAPSE 17 MC CV EIMS Tricuspid Annular S 0.08 MC CV EIMS TR Vmax 2.3 MC CV EIMS Estimated RA Pressure (Echo RAP) 5 MC CV EIMS RV Systolic Pressure (with Echo RAP) 26 MC CV EIMS AV mean gradient 7 MC CV EIMS Aortic valve area 2.83 MC CV EIMS Aortic Valve Dimensionless Index 0.58 MC CV EIMS MV mean gradient 3 MC CV EIMS Aortic Valve Systolic Peak Velocity 1.7 MC CV EIMS Anatomical Region Laterality Modality Echocardiography 04/04/2025 7:41 AM CDT Impressions 04/04/2025 4:54 PM CDT Transthoracic outreach echo interpretation. LEFT VENTRICLE:Mildly enlarged left ventricular chamber size. Normal left ventricular geometry. Calculated 2-D monoplane volumetric left ventricular ejection fraction 48% without the use of ultrasound enhancing agent. Abnormal ventricular septal motion - post-operative. Mild generalized left ventricular hypokinesis. Indeterminate left ventricular filling pressure. RIGHT VENTRICLE:Mildly enlarged right ventricular chamber size by visual estimate. Mildly reduced right ventricular systolic function. Estimated right ventricular systolic pressure 26 mmHg (systolic blood pressure 128 mmHg). ATRIA:Mildly enlarged left atrial size by visual estimate. Mildly enlarged right atrial size by visual estimate. CARDIAC VALVES:Sclerotic aortic valve. Trivial aortic valve regurgitation. 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 Mitral valve diastolic mean Doppler gradient 3 mmHg (heart rate 53 BPM). Mild mitral valve regurgitation. Pulmonary valve not well visualized. Mild pulmonary valve regurgitation. Normal tricuspid valve. Mild tricuspid valve regurgitation. OTHER ECHO FINDINGS:Normal inferior vena cava size with normal inspiratory collapse (>50%). Normal mid ascending aorta diameter of 38 mm. Abdominal aorta not visualized. No atrial level shunt by color flow imaging. No intracardiac mass or thrombus, but the left atrial appendage cannot be visualized adequately with transthoracic echo to exclude thrombus in this location. Prominent anterior epicardial fat layer. No pericardial effusion. For the complete report, see the Order-Level Documents. Narrative 04/04/2025 4:54 PM CDT For the complete report, see the Order-Level Documents. Hemodynamics Heart Rate: 58 BPM Blood Pressure: 128 / 72 mmHg ECG: Sinus rhythm, 1st degree A-V block Final Impressions 1. Transthoracic outreach echo interpretation. 2. Mildly enlarged left ventricular chamber size, mild generalized hypokinesis, calculated 2-D monoplane volumetric ejection fraction 48%. 3. Mildly enlarged right ventricular chamber size, mildly reduced systolic function, estimated right ventricular systolic pressure 26 mmHg (systolic blood pressure 128 mmHg). 4. Normal left ventricular geometry, indeterminate filling pressure. 5. 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 Mild mitral regurgitation. 6. No pericardial effusion. 7. Compared to the report of 07/10/2023 no significant change has occurred. Side by side comparison of images performed. Procedure Note Vlad Andrews M.D. - 04/04/2025 For the complete report, see the Order-Level Documents. Hemodynamics Heart Rate: 58 BPM Blood Pressure: 128 / 72 mmHg ECG: Sinus rhythm, 1st degree A-V block Final Impressions 1. Transthoracic outreach echo interpretation. 2. Mildly enlarged left ventricular chamber size, mild generalizedhypokinesis, calculated 2-D monoplane volumetric ejection fraction 48%. 3. Mildly enlarged right ventricular chamber size, mildly reduced systolicfunction, estimated right ventricular systolic pressure 26 mmHg (systolicblood pressure 128 mmHg). 4. Normal left ventricular geometry, indeterminate filling pressure. 5. 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 Mild mitral regurgitation. 6. No pericardial effusion. 7. Compared to the report of 07/10/2023 no significant change hasoccurred. Side by side comparison of images performed. Findings Transthoracic outreach echo interpretation. LEFT VENTRICLE:Mildly enlarged left ventricular chamber size. Normal leftventricular geometry. Calculated 2-D monoplane volumetric left ventricularejection fraction 48% without the use of ultrasound enhancing agent.Abnormal ventricular septal motion - post-operative. Mild generalized leftventricular hypokinesis. Indeterminate left ventricular fillingpressure. RIGHT VENTRICLE:Mildly enlarged right ventricular chamber size by visualestimate. Mildly reduced right ventricular systolic function. Estimatedright ventricular systolic pressure 26 mmHg (systolic blood pressure 128mmHg). ATRIA:Mildly enlarged left atrial size by visual estimate. Mildly enlargedright atrial size by visual estimate. CARDIAC VALVES:Sclerotic aortic valve. 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 Mitral valvediastolic mean Doppler gradient 3 mmHg (heart rate 53 BPM). Mild mitralvalve regurgitation. Pulmonary valve not well visualized. Mild pulmonaryvalve regurgitation. Normal tricuspid valve. Mild tricuspid valveregurgitation. OTHER ECHO FINDINGS:Normal inferior vena cava size with normal inspiratorycollapse (>50%). Normal mid ascending aorta diameter of 38 mm. Abdominalaorta not visualized. No atrial level shunt by color flow imaging. Nointracardiac mass or thrombus, but the left atrial appendage cannot bevisualized adequately with transthoracic echo to exclude thrombus in thislocation. Prominent anterior epicardial fat layer. No pericardialeffusion. For the complete report, see the Order-Level Documents. us Vald Andrews M.D. CV ECHO PROCEDURES Final R esult documented in this encounter Visit Diagnoses Diagnosis Cardiomyopathy (HCC) documented in this encounter Additional Health Concerns Assessment Noted Time PHQ-9 Depression Total Score: 0 04/26/20 23 9:12 AM CDT documented as of this encounter Care Teams Investment Banker Relationship Specialty Start Date End Date Lisa Francisco D.O. [address] [place] [address] PCP - General Family Medicine 11/06/24 documented as of this encounter
--- OUTSIDE RECORDS SUMMARY | 2025-04-04 08:35 | XMS_ITS | Encounter Summary ---
Author Organization [facility] Address [address] [place] [address] Care Team Providers Care Glass Cutter Helper Name Role Phone Lisa Francisco D.O. Primary Care Provider [phone] Reason for Referral * Outpatient (Routine) - Closed Specialty Diagnoses / Procedures Referred By Allison nance Referred To Contact Diagnoses Cardiomyopathy (HCC) Procedures ECG 12 Lead Vlad Andrews M.D. [address] [place] [address] Phone: tel: fax: [facility] Region Referral ID Status Reason Start Date Expiration Date Visits Re quested Visits Authorized [id number] Closed 02/28/2024 02/27/2025 1 1 Reason for Visit * Outpatient (Routine) - Closed Specialty Diagnoses / Procedures Referred By Allison nance Referred To Contact Diagnoses Cardiomyopathy (HCC) Procedures ECG 12 Lead Vlad Andrews M.D. [address] [place] [address] Phone: tel: fax: [facility] Region Referral ID Status Reason Start Date Expiration Date Visits Re quested Visits Authorized [id number] Closed 02/28/2024 02/27/2025 1 1 Encounter Details Date Type Department Care Team (Latest Contact Info) Description 04/04/2025 8:35 AM CDT - 04/04/2025 11:59 PM CDT Hospital Encounter Department of Laboratory Medicine in [place], [place] 300 [facility] [address] Vlad Andrews M.D. 300 [facility] [place] [phone] Cardiomyopathy (HCC) Discharge Disposition: Home or Self Care Social History Tobacco Use Types Packs/Day Years Used Date Smoking Tobacco: Never Passive Smoke Exposure: Never Smokeless Tobacco: Never Alcohol Use Standard Drinks/Week Comments Yes 1 (1 standard drink = 0.6 oz pur e alcohol) 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 90 tablet 3 05/20/2024 multivitamin-mine jnra-VN-rtlxmpfc- lutein (CENTRUM SILVER) 0.4-300-250 mg-mcg-mcg tablet Take [...] Obstructive DME Order 1 each 02/07/2024 5 wxhjs-0b-gax-epa- fish oil 350-100-225 mg capsule Take 1,200 mg by mouth daily. 5 documented as of this encounter Plan of Treatment Upcoming Encounters Date Type Department Care Team (Late st Contact Info) Description 05/16/2025 8:00 AM CDT Procedure visit Department of Urology in [place], [place] [address] [place] [phone] Stuart Crocker M.D., M.S. [address] [place] [phone] 05/20/2025 12:00 PM CDT Clinical Communication Virtual Review in [place], [place] 200 [place] [address] 05/21/2025 1:40 PM CDT Comprehensive Visit Department of Dermatology in [place], [place] [address] [place] [address] [place] [phone] Debby Martinez APRN, C.N.P., D.N.P. [address] [place] [phone] 05/22/2025 9:20 AM CDT Comprehensive Visit Department of Family Medicine, [facility], in [place], [place] [address], [place] [address] Lisa Francisco D.O. [address], [place] [address] documented as of this encounter Procedures Procedure Name Priority Date/Time Associated Diagnosis Comments ECG Routine 04/04/2025 8:46 AM CDT Cardiomyopathy (HCC) documented in this encounter Results * ECG 12 Lead (04/04/2025 8:46 AM CDT) Ventricular Rate ECG/Min 52 BPM MUSE TN Interval 214 ms MUSE QRSD Interval 110 ms MUSE QT Interval 456 ms MUSE QTC Interval 424 ms MUSE P [place] 39 degrees MUSE R [place] -16 degrees MUSE T Wave [place] -37 degrees MUSE 04/04/2025 8:46 AM CDT 04/04/2025 9:17 AM CDT Impressions MUSE - 04/04/2025 9:17 AM CDT Sinus bradycardia with 1st degree A-V block Non-specific intra-ventricular conduction delay T wave abnormality, consider inferior ischemia When compared with ECG of 23-Feb-2024 09:44, QRS duration has increased Reviewed by MARIO ALBERTO Olsen Narrative Procedure Note Maxwell Layton M.D. - 04/04/2025 IMPRESSION: Sinus bradycardia with 1st degree A-V block Non-specific intra-ventricular conduction delay T wave abnormality, consider inferior ischemia When compared with ECG of 23-Feb-2024 09:44, QRS duration has increased Reviewed by MARIO ALBERTO Olsen us Vlad Andrews M.D. ECG ORDERABLES Final Resu lt MUSE NA documented in this encounter Visit Diagnoses Diagnosis Cardiomyopathy (HCC) documented in this encounter Additional Health Concerns Assessment Noted Time PHQ-9 Depression Total Score: 0 04/26/20 23 9:12 AM CDT documented as of this encounter Care Teams Glass Cutter Helper Relationship Specialty Start Date End Date Lisa Francisco D.O. [address] [place] [phone] PCP - General Family Medicine 11/06/24 documented as of this encounter
--- OUTSIDE RECORDS SUMMARY | 2025-04-10 09:22 | XMS_ITS | Encounter Summary ---
Author Organization [facility] Address [address] [place] [address] Care Team Providers Care Probation Manager Name Role Phone Lisa Francisco D.O. Primary Care Provider [phone] Encounter Details Date Type Department Care Team (Latest Contact Info) Description 04/10/2025 9:22 AM CDT - 04/10/2025 11:59 PM CDT Hospital Encounter Department of Laboratory Medicine in [place], [place] [address] [phone] Sara Cochran, JANINE, C.N.P. [address] [phone] Benign Prostatic Hyperplasia Hypertrophy With Obstruction; Stone Bladder Discharge Disposition: Home or Self Care Social History Tobacco Use Types Packs/Day Years Used Date Smoking Tobacco: Never Passive Smoke Exposure: Never Smokeless Tobacco: Never Alcohol Use Standard Drinks/Week Comments Yes 1 (1 standard drink = 0.6 oz pur e alcohol) [facility] Utilities Answer Date Recorded In the past 12 months has e electric, gas, oil, or water [employer] threatened to shut off services in your home? No 03/03/2025 Humiliation, Afraid, Rape, and Kick questionnair e Answer Date Recorded Within the last year, have y ou been afraid of your partner or ex-partner? No 09/05/2022 Within the last year, have y ou been humiliated or emotionally abused in other ways by your partner or ex-partner? No 12 /08/2022 Within the last year, have y ou [...] your living situation today? I have a [facility] place to live 03/03/2025 Education Answer Date Recorded What is the highest level of school you have completed or the highest degree you have received? 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 90 tablet 3 05/20/2024 multivitamin-mine tpwp-UP-rymbengb- lutein (CENTRUM SILVER) 0.4-300-250 mg-mcg-mcg tablet Take 1 tablet by mouth daily. apixaban (Eliquis) 5 mg tablet Take 1 tablet (5 mg total) by mouth 2 (two) times a day. 180 tablet 3 05/20/2024 documented as of this encounter Plan of Treatment Upcoming Encounters Date Type Department Care Team (Late st Contact Info) Description 05/16/2025 8:00 AM CDT Procedure visit Department of Urology in [place], [place] [address] [place] [phone] Stuart Crocker M.D., M.S. [address] [place] [phone] 05/20/2025 12:00 PM CDT Clinical Communication Virtual Review in [place], [place] 200 [place] [address] 05/21/2025 1:40 PM CDT Comprehensive Visit Department of Dermatology in [place], [place] [address] [place] [address] [place] [phone] Debby Martinez APRN, C.N.P., D.N.P. [address] [place] [phone] 05/22/2025 9:20 AM CDT Comprehensive Visit Department of Family Medicine, [facility], in [place], [place] [address] [place] [address] Lisa Francisco D.O. 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 documented in this encounter Results * Urinalysis, with Microscopic: Urine, Midstream (04/10/2025 9:24 AM CDT) Source Urine, Urine, Midstream 04/10/2025 9:35 AM CDT OWAT Clarity Clear Clear 04/10/2025 9:35 AM CDT OWAT Color Yellow 04/10/2025 9:35 AM CDT OWAT Comment: ----REFERENCE VALUE---- Colorless Yellow Madeleine Blood Negative Negative 04/10/2025 9:35 AM CDT OWAT Nitrite Negative Negative 04/10/2025 9:35 AM CDT OWAT Leukocyte Esterase Negative Negative 04/10/2025 9:35 AM CDT OWAT Protein Negative mg/dL 04/10/2025 9:35 AM CDT OWAT Comment: ----REFERENCE VALUE---- Negative Trace Glucose Negative Negative mg/dL 04/10/2025 9:35 AM CDT OWAT Ketone Negative Negative mg/dL 04/10/2025 9:35 AM CDT OWAT Bilirubin Negative Negative 04/10/2025 9:35 AM CDT OWAT pH 5.5 5.0 - 8.0 04/10/2025 9:35 AM CDT OWAT Specific [place] 1.015 1.001 - 1.035 04/10/2025 9:35 AM CDT OWAT Urobilinogen 0.2 0.2 - 1.0 mg/dL 04/10/2025 9:35 AM CDT OWAT White Blood Cells None Seen /hpf 04/10/2025 9:37 AM CDT OWAT Comment: ----REFERENCE VALUE---- Males: 0-3 Females: 0-10 Unknown: 0-10 Red Blood Cells None Seen 0 - 2 /hpf 9:37 AM CDT [facility] Urine (Urine, Midstream) 04/10/2025 9:24 AM CDT 04/10/2025 9:31 AM CDT us Sara Cochran APRN C.N.P. 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 [address] [place] [phone] PCP - General Family Medicine 11/06/24 documented as of this encounter
--- OUTSIDE RECORDS SUMMARY | 2025-04-10 10:45 | XMS_ITS | Encounter Summary ---
Author Organization [facility] Address [address] [place] [address] Care Team Providers Care Roadway Engineer Name Role Phone Lisa Francisco D.O. Primary Care Provider [phone] Reason for Referral * Outpatient (Routine) - Authorized Specialty Diagnoses / Procedures Referred By Contac t Referred To Contact Cardiovascular Disease Vlad Andrews M.D. [address] [place] [address] Phone: tel: fax: [facility] Referral ID Status Reason Start Date Expiration Date V isits Requested Visits Authorized [id number] Authorized 04/10/2025 10/10/2026 1 1 * Outpatient (Routine) - Authorized Specialty Diagnoses / Procedures Referred By Contac t Referred To Contact Diagnoses Cardiomyopathy (HCC) Procedures ECG 12 Lead [place] EKG 12 LEAD W I&R Vlad Andrews M.D. [address] [place] [address] Phone: tel: fax: [facility] Region Referral ID Status Reason Start Date Expiration Date V isits Requested Visits Authorized [id number] Authorized 04/10/2025 07/11/2026 1 1 Reason for Visit * Reason Comments Follow-up * Outpatient (Routine) - Closed Specialty Diagnoses / Procedures Referred By Allison t Referred To Contact Cardiovascular Disease Vlad Andrews M.D. [address] [place] [address] Phone: tel: fax: [facility] Region Referral ID Status Reason Start Date Expiration Date Visits Re quested Visits Authorized [id number] Closed 02/28/2024 08/29/2025 1 1 Encounter Details Date Type Department Care Team (Latest Contact Info) Description 04/10/2025 10:45 AM CDT Office Visit Department of Cardiovascular Diseases in [place], [place] [address], [place] [address] Vlad Andrews M.D. [address] [facility] [place] [address] Cardiomyopathy (HCC) (Primary Dx); Repair Mitral Valve Status Post; Obesity Body Mass Index 30-39.9 Adult; Flutter Atrial (HCC) Social History Tobacco Use Types Packs/Day Years Used Date Smoking Tobacco: Never Passive Smoke Exposure: Never Smokeless Tobacco: Never Tobacco Cessation:Counseling Given: Not Answered Alcohol Use Standard Drinks/Week Comments Yes 1 (1 standard drink = 0.6 oz pur e alcohol) [facility] Utilities Answer Date Recorded In the past 12 months has [facility] [email or web address], gas, oil, or water [email or web address] threatened to shut off services in your [...] your living situation today? [facility] have a [facility] place to live 03/03/2025 Education Answer Date Recorded What is the highest level of school you have completed or the highest degree you have received? 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 - 04/10/2025 10:45 AM CDT CARDIOLOGY CONSULTATION Location: [facility] Consultation Indication: Follow-up Referring Provider: Vlad Andrews M.D. PROBLEM LIST: Mitral valve repair 32 mm Yee-Bear annuloplasty ring on 12/1998 done at [facility] Indication: severe mitral regurgitation with flail leaflet Atrial fibrillation/flutter, paroxysmal Postoperative, requiring cardioversion, 1998 Recurrence diagnosed 04/19/2021; asymptomatic; S/P cardioversion 06/25/2021, successful Long-term anticoagulation, Eliquis. CHADS-VASc score 3 Re-initiated 03/2021 Cardiomyopathy nonischemic. LVEF 48% 03/2025; 40-49% 04/2021-06/2023; 51% 01/2015-02/2020; 32% 02/2011; 45- 50% 1998, postop period No ischemia SE 2018; in the setting atypical chest discomfort Normal coronary arteries on preop coronary angiogram 1998 Frequent ventricular ectopy Lightheadedness S/P ER visit 03/2023 Hyperlipidemia, per PCP Hypothyroidism, per PCP Obstructive sleep apnea Compliant with CPAP Benign prostate hypertrophy Normocytic anemia Thrombocytopenia Seen by Hematology 04/2024; no improvement with dexamethasone trial; bone marrow biopsy considered but not pursued Obesity, BMI 35 Diastasis recti, post cardiac surgery Never smoker. ASSESSMENT/ PLAN Cardiomyopathy (HCC) Orders: ECG 12 Lead; Future Repair Mitral Valve Status Post Obesity Body Mass Index 30-39.9 Adult Flutter Atrial (HCC) Heart failure with reduced ejection fraction Ejection fraction is 48%, close to normal. No valvular heart disease or pulmonary hypertension on echocardiogram March 2025. Asymptomatic. [place] Heart Association class 1 but some decrease in mobility due to plantar fasciitis, now improved. Euvolemic on exam. No improvement in systolic function with rhythm control. No ischemic symptoms (updating his ischemic workup was considered but deferred since there was no further decrease in his systolic function). Frequent PVCs in the past but burden less than 10%, cardiomyopathy is unlikely PVC- induced; no indication for antiarrhythmic therapy at this time. It is likely that his depressed left ventricle systolic function is in significant part dueto sequela of his past mitral regurgitation. Current medications: losartan and carvedilol. Discussed increasing losartan to enhance cardiac function, but risks include dizziness and hypotension. The patient will consider but concerned about symptomatic hypotension and prefers not to make changes atthis time. Additional treatment would be needed if he becomes symptomatic (Entresto, spironolactoneand SGLT-2 inhibitor), as reviewed today. Continue risk modification with primary care provider. Lipids were excellent with improved LDL at 63 on January 2024. - Continue losartan and carvedilol at current doses. - Consider increasing losartan if the patient is interested and after considering risks. - Reassess in a year with the electrocardiogram, no repeat echo indicated unless symptoms develop. Mitral valve repair Mitral valve repair is functioning well with no deterioration since 2022. No regular surveillance required. Continue lifelong endocarditis prophylaxis. - No need for repeat echocardiogram next year if symptoms remains stable. Obesity Weight increasing due to decreased exercise post-plantar fasciitis. BMI 35. Current lifestyle active, but deliberate exercise decreased. Emphasized moderate exercise for weight loss and cardiac health. - Encourage moderate exercise, 30 minutes, five days a week, aiming for slight breathlessness or sweating. Atrial fibrillation/flutter Atrial fibrillation (postoperative) with asymptomatic recurrence (atrial flutter) detected during exam, March 2021. Status post success cardioversion on June 2021. He continues to maintain sinus rhythm. No symptomatic recurrences detected but he had been asymptomatic while in atrial fibrillation in the past. In view of that, rhythm control may not need to be pursued in case of asymptomatic recurrences. No atrial fibrillation on past Holter. If recurrent lightheadedness, 30 day ambulatory monitor may be performed to look for minimally symptomatic recurrences. Continue lifelong anticoagulation, ongoing management per primary care provider. No bleeding issues reported. Continue CPAP therapy.We previously discussed the importance of weight loss and regular exercise to decrease chance of recurrences of the atrial arrhythmia. Anemia/thrombocytopenia Referral to Hematology by primary care provider. Statins could potentially be associated and may beheld (or switched to alternative ezetimibe), if Hematology feels that medications could be implicated. Continue management with the primary care team +/-Hematology. The risks of ongoing anticoagulation we would be increased if platelets decrease to less than 50,000, in which case anticoagulation should be reconsidered. Plantar fasciitis Plantar fasciitis resolved, initially led to decreased exercise and weight gain. Current activity level high, but deliberate exercise less frequent. - Encourage resumption of regular exercise to prevent weight gain and improve cardiovascular health. Advance Care Planning [facility] has an initiative to have advance care plans in place for all patients greater than 65 and I provide the patient with resources (I use the thurmond book Advance Health Care Planning: Making your wishes known [id number]) to help with decision making. PLAN: #1 Cardiomyopathy (HCC) Overview: Cardiomyopathy NOS Orders: - ECG 12 Lead; Future; Expected date: 04/10/2026 (Before next visit) Other orders - Cardiovascular Disease office visit (clinic) - Cardiovascular Disease office visit (clinic) [facility] Region; General; Future; Expected date: 04/10/2026 Medications Discontinued During This Encounter Medication Reason DME CPAP Duplicate order amoxicillin (AmoxiL) 500 mg capsule Duplicate order bicrs-[id number]-epa-fish oil 350-100-225 mg capsule - Follow up with Cardiology in 12 months or call us sooner in case of problems or concerns. The patient expressed understanding of the information discussed during the visit today and agreement with the plan. DATE OF VISIT: 04/10/2025 SUBJECTIVE CHIEF COMPLAINT / REASON FOR VISIT Steven Orellana is a 80 y.o. male who presents for evaluation of Follow-up. The patient verbally consented to an audio recording of their visit to assist with the completion of documentation. History of Present Illness Mr. Steven Orellana is an 80-year-old male with mitral valve repair and heart failure who presents for a cardiovascular follow-up. He is accompanied by his , Siobhan. He has experienced gradual weight gain, which he attributes to reduced physical activity following plantar fasciitis. The condition caused pain and limping for several months, disrupting his exerciseroutine. Although the plantar fasciitis has resolved, he has not resumed regular exercise and wantsto lose ten pounds. He is not pleased with his weight gain. He has a history of mitral valve repair and heart failure. Recent echocardiogram and EKG showed an ejection fraction of 48%. He is currently on losartan 25 mg and carvedilol. He experienced lightheadedness previously when the losartan dose was increased. No shortness of breath or leg swelling. No chest pain reported. He maintains an active lifestyle, managing three and a half acres of yard, including mowing and trimming trees. Record review, since our last visit on February 2024:Seen hematology April 26 for thrombocytopenia. No improvement in platelets with dexamethasone trial making autoimmune thrombocytopenia less likely. Bone marrow biopsy considered but not performed. Seen by family Medicine in April. He was doing well with the time, [place] Heart Association 1. Compliant with CPAP. Recently seen by Urology in February for BPH with a long let us stone confirm the CT and causing hematuria PERTINENT CARDIAC (OR RELATED) STUDIES REVIEWED: Echocardiogram March 2025: 1. Transthoracic outreach echo interpretation. 2. Mildly [...] significant change has occurred. Side by side comparisonof images performed. Echocardiogram June 2023: 1. Mildly enlarged left ventricular chamber size, mild generalized hypokinesis, calculated 2-D monoplane volumetric ejection fraction 44%. 2. Enlarged right ventricular chamber size, mildly reduced systolic function, unable to detect peaktricuspid regurgitation velocity for pulmonary artery systolic pressure calculation. 3. Status post mitral valve repair (with 32 mm Yee-Bear annuloplasty ring, e/w, DEC-1998), diastolic mean Doppler gradient 3 mmHg at heart rate 59 bpm. Mild mitral regurgitation. 4. Visualization of the inferior vena cava is consistent with low to normal estimated central venous pressure. 5. No pericardial effusion. 6. Compared to the report of 08/31/2022 no significant change has occurred. Holter monitor March 2023: 1. The basic rhythm was sinus. The total analyzed time was 22h 37m. The heart rate varied from 50 to 76 bpm. The average HR was 64 bpm. 2. Premature ventricular complexes were noted singly, interpolated, in couplets, and in two 3 beat ventricular runs with maximum rate of 113 bpm. There were 8052 PVCs recorded with a PVC burden of 9%. 3. Premature supraventricular complexes were noted singly, and in couplets. There were 1824 PACs recorded with a PAC burden of 2%. 4. No symptomatic events were noted. Echocardiogram August 2022: 1. Mild-moderately enlarged right ventricular chamber size, mildly reduced systolic function, estimated right ventricular systolic pressure 23 mmHg (right atrial pressure of 5 mmHg). 2. Mildly enlarged left ventricular chamber size, mild generalized hypokinesis, calculated 2-D linear ejection fraction 41%. 3. Abnormal ventricular septal motion - post-operative. 4. Status post Yee mitral valve annuloplasty (32 mm annulplasty ring, 22-DEC-1998, elsewhere) 5. Mitral valve diastolic mean Doppler gradient 3 mmHg (heart rate 66 BPM). Mild mitral regurgitation. 6. No pericardial effusion. 7. Compared to the report of 08/31/2021 the following changes have occurred: increased ventricular ectopy observed the initial portion of the echocardiogram; slightly decreased left ventricular systolic function. Side by side comparison of images performed. Echocardiogram August 2021: 1. Mildly enlarged left ventricular chamber size, mild generalized hypokinesis, calculated 2-D linear ejection fraction 45%. 2. Mild-moderately enlarged right ventricular chamber size, mildly reduced systolic function, estimated right ventricular systolic pressure 25 mmHg (right atrial pressure of 5 mmHg). 3. Status post Yee mitral valve annuloplasty (32 mm annulplasty ring, 22-DEC-1998, elsewhere) 4. Mitral valve diastolic mean Doppler gradient 4 mmHg (heart rate 69 BPM). 5. Mild mitral valve regurgitation. 6. Normal inferior vena cava size with normal inspiratory collapse (>50%). 7. No pericardial effusion. 8. Compared to the report of 05/19/2021 the following changes have occurred: Sinus rhythm with ectopy has replaced atrial fibrillation. The left ventricle measures slightly smaller and right ventricle measures slightly larger. The mitral inflow gradient is the same but at a slightly lower heart rate. Side by side images compared. Holter April 2021: 1. The basic rhythm was Atrial Flutter. The heart rate varied from 62-126 BPM, with an average of 89 BPM. 2. Frequent premature ventricular and or aberrantly conducted complexes were seen singly, in pairs,in bigeminy, in trigeminy, in AIVR, and in one hundred and eighty-seven 3-10 beat runs of ventricular tachycardia. The maximum rate of VT was [address] segment analysis was not completed due to the presence of Atrial Flutter. 4. No symptoms were recorded. Echocardiogram April 2021: 1. Status post mitral valve repair (32 mm Yee-Bear annuloplasty ring) elsewhere, 22-DEC-1998. 2. Mitral valve diastolic mean Doppler gradient 4 mmHg (heart rate 80 BPM). Mild mitral regurgitation. 3. Moderately enlarged left ventricular chamber size, mild generalized hypokinesis with regional variability, calculated 2-D four chamber monoplane volumetric ejection fraction 49 %. 4. Mildly enlarged right ventricular chamber size, mildly reduced systolic function, estimated right ventricular systolic pressure 24 mmHg (systolic blood pressure 116 mmHg). 5. Mildly enlarged left atrial size by visual estimate. 6. No pericardial effusion. 7. Compared to the report of 02/25/2020 the following changes have occurred: atrial fibrillation/flutter replaced sinus rhythm; slightly decreased left ventricular systolic function. Side by side comparison of images performed. Comments The patient has follow-up appointment with Cardiology on June 04, 2021. Echocardiogram February 2020: 1. Moderately enlarged left ventricular chamber size. Calculated 2D LV ejection fraction 51%. 2. Abnormal ventricular septal motion - post-operative. No resting regional wall motion abnormalities. 3. Mildly enlarged right ventricular chamber size with mild decrease in function. 4. Normal inferior vena cava size with normal inspiratory collapse (>50%). 5. Status post mitral valve repair (32 mm Yee-Bear annuloplasty ring) elsewhere, 22-DEC-1998. 6. Mitral valve prosthesis diastolic mean Doppler gradient 3 mmHg (heart rate 57 BPM). Mild mitral valve regurgitation. 7. Compared to the report of 02/19/2019 the following changes have occurred: LV size slightly increased. No other significant changes. Side by side comparison of images performed. 8. See SERIAL STUDIES for comparison of measurements and hemodynamics. Stress echocardiogram January 2019: 1. Exercise echocardiogram negative for myocardial ischemia. 2. The patient's exercise capacity was average. 3. The patient achieved a workload of 9.5 METS and 109 % FAC. 4. Ejection fraction response from 50 % at rest to 60 % at peak stress. 5. Left ventricular end-systolic volume decreased with stress. 6. Status post mitral valve repair (32 mm Yee-Bear annuloplasty ring) elsewhere, 22-DEC-1998. 7. Mitral valve diastolic mean Doppler gradient 3 mmHg (heart rate 58 BPM). Echocardiogram January 2017: 1. Status post mitral valve repair (32 mm Yee?Bear annuloplasty ring, ). Mean diastolic inflow gradient 3 mmHg (heart rate 63 bpm). Mild mitral regurgitation. 2. Mild?moderate left ventricular enlargement (end?diastolic diameter 59 mm; end?diastolic volume index 96 mL/m2). Biplane volumetric ejection fraction 52%. 3. Mild right ventricular enlargement and mild to moderately decreased systolic function. 4. Normal inferior vena cava size with normal inspiratory collapse (>50%). 5. Compared to the report of 01/27/2015 no significant change has occurred. Side by side comparisonof images performed. current medications[1] Allergies Allergen Reactions Erythromycin Hives (Reselect Reaction) and Rash REVIEW OF SYSTEMS Constitutional: Positive for weight gain of more than 10 pounds. Respiratory: - Negative for shortness of breath. Cardiovascular: - Negative for chest pain, pressure or tightness. Hematologic: - Negative for bruises or bleeds easily. Neurological: - Negative for light-headedness. All other systems reviewed and are negative. The following portions of the patient's history were reviewed and updated as appropriate: allergies, current medications, family history, medical history, social history, surgical history and problemlist. OBJECTIVE VITAL SIGNS BP 118/64 (BP Location: Right arm, Patient Position: Sitting, Cuff Size: Regular) Pulse (!) 52 Wt 107 kg SpO2 96% BMI 35.04 kg/m?? Vitals: 04/10/25 1042 BP: 118/64 BP Location: Right arm Patient Position: Sitting Cuff Size: Regular Pulse: (!) 52 SpO2: 96% Weight: 107 kg BP Readings from Last 3 Encounters: 04/10/25 118/64 05/20/24 106/68 04/30/24 114/71 Wt Readings from Last 3 Encounters: 04/10/25 107 kg 05/20/24 103 kg 04/30/24 104 kg PHYSICAL EXAMINATION General: Patient is awake, alert, oriented x3. No acute distress. Eyes: No pallor. No icterus. Neck: No jugular venous distention. No carotid bruits. Chest/Lungs: No chest deformity. Normal respiratory effort. Good air entry bilaterally. No adventitious sounds. Cardiovascular: Bradycardic with a regular rhythm. Normal S1 and S2. No murmurs, rubs, or gallops. Negative hepatojugular reflux. Abdomen: Soft, nontender, nondistended. Lower Extremities: Lower extremity warm without edema. Upper Extremities: 2+ Radial pulses bilaterally. Normal temperature. No cyanosis. Neurologic: Exam deferred. DIAGNOSTICS I have reviewed the patient's current laboratory, imaging, and other diagnostic studies. Pertinent laboratory studies have been reviewed and are notable for: Hospital Outpatient Visit on 04/10/2025 Component Date Value Source 04/10/2025 Urine, Urine, Midstream Clarity 04/10/2025 Clear Color 04/10/2025 Yellow Blood 04/10/2025 Negative Nitrite 04/10/2025 Negative Leukocyte Esterase 04/10/2025 Negative Protein 04/10/2025 Negative Glucose 04/10/2025 Negative Ketone 04/10/2025 Negative Bilirubin 04/10/2025 Negative pH 04/10/2025 5.5 Specific [place] 04/10/2025 1.015 Urobilinogen 04/10/2025 0.2 White Blood Cells 04/10/2025 None Seen Red Blood Cells 04/10/2025 None Seen Hospital Outpatient Visit on 04/04/2025 Component Date Value Ventricular Rate ECG/Min 04/04/2025 52 WY Interval 04/04/2025 214 QRSD Interval 04/04/2025 110 QT Interval 04/04/2025 456 QTC Interval 04/04/2025 424 P [place] 04/04/2025 39 R [place] 04/04/2025 -16 T Wave [place] 04/04/2025 -37 Hospital Outpatient Visit on 04/04/2025 Component Date Value Ejection Fraction 04/04/2025 48 Sinus of Valsalva 04/04/2025 40 Mid-Ascending Aorta 04/04/2025 38 LV Mass Index 04/04/2025 79 LV End-Diastolic Diameter 04/04/2025 55 LV End-Systolic Diameter 04/04/2025 42 LV End-Diastolic Volume 04/04/2025 174 LV End-Systolic Volume 04/04/2025 96 Left ventricular stroke * 04/04/2025 56 Cardiac Output 04/04/2025 6.75 Cardiac Index 04/04/2025 3.08 LV Interventricular Sept* 04/04/2025 9 LV Posterior Wall Thickn* 04/04/2025 8 LV Relative Wall Thickne* 04/04/2025 29 TAPSE 04/04/2025 17 Tricuspid Annular S??? 04/04/2025 0.08 TR Vmax 04/04/2025 2.3 Estimated RA Pressure (E* 04/04/2025 5 RV Systolic Pressure (wi* 04/04/2025 26 AV mean gradient 04/04/2025 7 Aortic valve area 04/04/2025 2.83 Aortic Valve Dimensionle* 04/04/2025 0.58 MV mean gradient 04/04/2025 3 Aortic Valve Systolic Pe* 04/04/2025 1.7 Lab Results Component Value Date CREATININE 1.06 05/06/2024 BUN 33 (H) 05/06/2024 NA 142 05/06/2024 CL 106 05/06/2024 CO2 23 04/04/2023 Lab Results Component Value Date ALT 17 04/30/2024 Lab Results Component Value Date TSH 1.6 05/06/2024 Lab Results Component Value Date WBC 3.8 09/12/2024 HGB 12.9 (L) 09/12/2024 HCT 38.2 (L) 09/12/2024 MCV 91.6 09/12/2024 PLT 73 (L) 09/12/2024 ECG from the last 30 days: ECG 12 Lead Result Date: 04/04/2025 Sinus bradycardia with 1st degree A-V block Non-specific intra-ventricular conduction delay T wave abnormality, consider inferior ischemia When compared with ECG of 23-Feb-2024 09:44, QRS duration has increased Reviewed by MARIO ALBERTO Olsen Imaging last 30 days: Echo Transthoracic (TTE) Result Date: 04/04/2025 Impression: Transthoracic outreach echo interpretation. LEFT VENTRICLE:Mildly enlarged [...] size by visual estimate. CARDIAC VALVES:Sclerotic aortic valve.Trivial aortic valve regurgitation. Status post mitral valve [...] the complete report, see the Order-Level Documents. Study Date 05/15/15 DX Chest Anterior Posterior or Posterior Anterior and Lateral 2 Views Narrative EXAM: XR Chest 2 Views INDICATION: follow up pneumonia COMPARISON: 03/23/2015 Impression The left lower lobe opacities have resolved since 03/23/2015. Remainder unchanged. No focal infiltrate or consolidation. No pleural effusion or pneumothorax. Heart size and pulmonary vascularity within normal limits. Sternotomy with mitral annuloplasty. The ASCVD Risk score (Eduardo DK, et al., 2019) failed to calculate for the following reasons: The 2019 ASCVD risk score is only valid for ages 40 to 79 IMPRESSION/REPORT/PLAN See above. Vlad Andrews M.D. [1] Current Outpatient Medications Medication Sig amoxicillin (AmoxiL) 500 mg capsule TAKE FOUR CAPSULES BY MOUTH ONE HOUR BEFORE APPOINTMENT apixaban (Eliquis) 5 mg tablet Take 1 tablet (5 mg total) by mouth 2 (two) times a day. ascorbic acid, vitamin C, (VITAMIN C) 500 mg tablet Take by mouth daily. atorvastatin (Lipitor) 20 mg tablet Take 1 tablet (20 mg total) by mouth daily. B complex-vitamin (SUPER B-50) capsule Take 1 capsule by mouth daily. calcium carbonate-vitamin D3 1,500 mg (600 mg calcium)-400 unit per tablet Take 1 tablet by mouth daily with breakfast. carvediloL (Coreg) 12.5 mg tablet Take 1 tablet (12.5 mg total) by mouth 2 (two) times a day. DME CPAP DME Order levothyroxine (Euthyrox) 125 mcg tablet Take 1 tablet (125 mcg total) by mouth daily. losartan (Cozaar) 25 mg tablet Take 1 tablet (25 mg total) by mouth daily. nqwagkzxaxsn-tfbooeth-CU-lycopene-lutein (CENTRUM SILVER) 0.4-300-250 mg-mcg-mcg tablet Take 1 tablet by mouth daily. xbpdk-8g-itw-epa-fish oil 350-100-225 mg capsule Take 1,200 mg by mouth daily. documented in this encounter Miscellaneous Notes * Assessment & Plan Note - Vlad Andrews M.D. - 04/10/2025 10:45 AM CDT Associated Problem(s): Cardiomyopathy (HCC) (Resolved 05/05/2025) Orders: ECG 12 Lead; Future * Assessment & Plan Note - Vlad Andrews M.D. - 04/10/2025 10:45 AM CDT Associated Problem(s): Repair Mitral Valve Status Post * Assessment & Plan Note - Vlad Andrews M.D. - 04/10/2025 10:45 AM CDT Associated Problem(s): Flutter Atrial (HCC) (Resolved 05/05/2025) documented in this encounter Plan of Treatment Upcoming Encounters Date Type Department Care Team (Late st Contact Info) Description 05/16/2025 8:00 AM CDT Procedure visit Department of Urology in [place], [place] [address] [place] [phone] Stuart Crocker M.D., M.S. [address] [place] [phone] 05/20/2025 12:00 PM CDT Clinical Communication Virtual Review in [place], [place] 200 [place] [address] 05/21/2025 1:40 PM CDT Comprehensive Visit Department of Dermatology in [address] [place] [address] Debby Martinez APRN, C.N.P., D.N.P. [address] [place] [phone] 05/22/2025 9:20 AM CDT Comprehensive Visit Department of Family Medicine, [facility], in [place], [place] [address] [place] [phone] Lisa Francisco D.O. [address], [place] [address] Scheduled Orders Name Type Priority Associated Diagnoses Orde r Schedule ECG 12 Lead ECG Routine Cardiomyopathy (HCC) Expected: 04/10/2026, Expires: 07/11/2026 Scheduled Referrals Name Type Priority Associated Diagnoses Order Schedule Cardiovascular Disease office visit (clinic) [facility]; General Outpatient Referral Routine Expected: 04/10/2026 (Approximate), Expires: 07/11/2026 documented as of this encounter Visit Diagnoses Diagnosis Cardiomyopathy (HCC)- Primary Repair Mitral Valve Status Post Obesity Body Mass Index 30-39.9 Adult Flutter Atrial (HCC) documented in this encounter Additional Health Concerns Assessment Noted Time PHQ-9 Depression Total Score: 0 04/26/20 23 9:12 AM CDT documented as of this encounter Care Teams Roadway Engineer Relationship Specialty Start Date End Date Lisa Francisco D.O. [address], [place] [phone] PCP - General Family Medicine 11/06/24 documented as of this encounter
--- OUTSIDE RECORDS SUMMARY | 2025-04-17 10:00 | XMS_ITS | Encounter Summary ---
Author Organization [facility] Address [address] [place] [address] Care Team Providers Care Sap Business Objects Developer Name Role Phone Lisa Francisco D.O. Primary Care Provider [phone] Reason for Referral * Outpatient (Routine) - Closed Specialty Diagnoses / Procedures Referred By Allison nance Referred To Contact Anesthesiology Diagnoses Urgency Urinary Benign Prostatic Hyperplasia Hypertrophy With Obstruction Hyperplasia Prostate Benign Localized Without Obstruction Sixto Dykes M.D. [address] [place] [address] Phone: tel: fax: [facility] Referral ID Status Reason Start Date Expiration Date Visits Re quested Visits Authorized [id number] Closed 04/17/2025 10/17/2026 1 1 Reason for Visit * Outpatient (Routine) - Closed Specialty Diagnoses / Procedures Referred By Allison nance Referred To Contact Urology Diagnoses Benign Prostatic Hyperplasia Hypertrophy With Obstruction Stone Bladder Sara Cochran, JANINE, C.N.P. [address] [address] Phone: tel: fax: [facility] Referral ID Status Reason Start Date Expiration Date Visits Re quested Visits Authorized [id number] Closed 03/06/2025 09/05/2026 1 1 Encounter Details Date Type Department Care Team (Latest Contact Info) Description 04/17/2025 10:00 AM CDT Comprehensive Visit Department of Urology in [place], [place] [address] [place] [address] Akilah Amin M.D. [address] [place] [address] Urgency Urinary (Primary Dx); Benign Prostatic Hyperplasia Hypertrophy With Obstruction; Hyperplasia Prostate Benign Localized Without Obstruction Social History Tobacco Use Types Packs/Day Years Used Date Smoking Tobacco: Never Passive Smoke Exposure: Never Smokeless Tobacco: Never Alcohol Use Standard Drinks/Week Comments Yes 1 (1 standard drink = 0.6 oz pur e alcohol) [facility] Utilities Answer Date Recorded In the past 12 months has e electric, gas, oil, or water [employer] threatened to shut off services in your [...] your living situation today? I have a [facility] place to live 03/03/2025 Education Answer Date Recorded What is the highest level of school you have completed or the highest degree you have received? Some college, no degree 03/22/2019 Sex and Gender Information Value Date Recorded Sex Assigned at Male 03/15/2018 8:53 AM CDT Legal Sex Male 1:32 PM [employer] Gender Identity Male 03/15/2018 8:53 AM CDT Sexual Orientation Straight 03/15/2018 8: 53 AM CDT documented as of this encounter Progress Notes * Akilah Amin M.D. - 04/17/2025 10:00 AM CDT SUBJECTIVE REQUESTING PROVIDER Sara Cochran APRN, C.N.P. REASON FOR VISIT Consultation for possible enucleation HISTORY OF PRESENT ILLNESS Mr. Orellana is a pleasant 80-year-old who is initially seen for gross hematuria. He had 1 episode ofgross hematuria in January 2025. He underwent evaluation with CT scan showing a bladder stone and cystoscopy showing a bladder stone with intravesical protrusion of the prostate. He denies any urinary hesitancy, incontinence, or urinary tract infections. He notes a decreasing stream for the past 5 years. No discomfort with urination. He notes urinary frequency depending on fluid intake and activity. He notes nocturia times 0-1. He has not use any prior medications for the prostate or has had any prostate surgeries. Prostate size: 96.4 cc Imaging personally reviewed, agree with sizing assessment. Cystoscopy: Bladder stone with intravesical protrusion of the prostate. Reviewed imaging and agree with report I-PSS I-PSS Urinary Symptoms Score: (Patient-Rptd) 3 I-PSS Quality of Life Score: (Patient-Rptd) 2 PSA: Lab Results Component Value Date PSA 6.6 02/23/2024 PSA 4.9 04/06/2023 PSA 4.7 04/06/2022 Last UA: Lab Results Component Value Date URINESOURCE Urine, Urine, Midstream 04/10/2025 CLARITYU Clear 04/10/2025 COLORU Yellow 04/10/2025 RBCU None Seen 04/10/2025 RBCU Negative 04/10/2025 NITRITEU Negative 04/10/2025 LEUKOCYTESU Negative 04/10/2025 PROTEINQUALU Negative 04/10/2025 GLUCOSEU Negative 04/10/2025 KETONESU Negative 04/10/2025 BILIRUBINU Negative 04/10/2025 PHURINE 5.5 04/10/2025 SPECGRAV 1.015 04/10/2025 UROBILINOGEN 0.2 04/10/2025 UroFLOW: Voided volume 338 cc, peak flow 4, average flow 3, and postvoid residual of 296 cc. Sexual Function: IIEF-15 Erectile Function:(Patient-Rptd) 10/24 Orgasmic Function:(Patient-Rptd) 010 Sexual Desire:(Patient-Rptd) 02/01 [place] Satisfaction: (Patient-Rptd) 015 Overall satisfaction:(Patient-Rptd) 01/02 Total Score:(Patient-Rptd) Prior Biopsy: None Prostate Medications: No prior prostate medications. Prior Prostate surgery: None Medical History: Medical History[1] OBJECTIVE Physical Exam Adult male in no acute distress. Patient is alert and oriented. ASSESSMENT / PLAN Assessment: BPH with obstruction Plan: To the OR for surgery Surgery: Aquablation. Patient will undergo surgery with Dr. Dykes. The risks benefits and alternatives of the procedure were discussed. The alternatives include: Medical management, , enucleation, PVP laser intervention, TUIP, intermittent catheterization, UroLIFT and REZUM. Given the size of the prostate, we felt the best option would be Aquablation along with cystolitholapaxy. The risks to all surgery include bleeding, infection, damage to surrounding structures, positioninginjuries and the risks of anesthesia, which include: deep vein thrombosis, pulmonary embolism, stroke, aspiration, pneumonia, heart attacks, and . The risks of this procedure in particular include: bladder neck contractures, stress urinary incontinence, urge urinary incontinence, urethral strictures, prolonged catheterization, retrograde ejaculation, damage to bladder and ureters, incontinence, worsening urinary symptoms, sometimes requiring a nticholinergics or botox. If there is any technical issues with the morcellation, we may need to make a small incision to retrieve the tissue from the bladder. This will also prolong the catheter time. The patient understands the risk of the procedure and is willing to proceed. Size: 96.4 cc Anticoagulation: He is on Eliquis for atrial fibrillation. Urine Culture ANNA Signed by: Bossman Amin M.D. 04/15/2025 1:26 PM CDT CC note : Sara Cochran APRN, C.N.P. Answers submitted by the patient for this visit: Urinary Symptoms (Submitted on 04/14/2025) None of the above: Yes None of the above: Yes None of the above: Yes Are you able to sense when your bladder is full?: Yes How many times daily do you typically urinate during the day?: 5 How many times do you typically wake up and urinate at night?: 1 Have you had a urinary tract infection (UTI) within the past 1 year, and if so how many?: none Have you had any kidney infections or required hospitalized for kidney failure?: No Have you required a catheter placed because you could not empty your bladder?: No Do you ever unintentionally leak urine?: No Have you ever or are currently taking any treatments to treat your urinary symptoms?: none Have you ever had any surgical or office procedures to improve your urinary symptoms?: No [1] Past Medical History: Diagnosis Date Apnea Sleep Obstructive on CPAP Atrial Fibrillation Personal History postoperative, treated with cardioversion Atrial Fibrillation Unspecified (HCC) 2019 Benign Prostatic Hyperplasia Without Obstruction Cardiomyopathy (HCC) becoming evident 2010 with last followup echocardiogram 01/2015 revealing mild mitral valve regurgitation and mild LV enlargement with EF of 50% mild RV enlargement and mild to moderate decrease in RVfunction. 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 On review of older records preoperative echo had demonstrated a flail segment in the posterior mitral leaflet asso. w/ severe mitral regurgitation; Postoperatively the patient was experiencing atrial fibrillation/flutter and required cardioversion. Cardiac medications for a time included atenolol, Rythmol, amiodarone, and Coumadin Skin Cancer (Primary) NOS 2022 Sleep Apnea Thrombocytopenia chronic, did not improve with dexamethasone trial 04/2024, followed by hematology with most recent consult 04/30/2024 Cosigned by Sixto Dykes M.D. at 04/17/2025 11:57 AM CDT Associated attestation - Sixto Dykes M.D. - 04/17/2025 11:57 AM CDT I saw Mr. Orellana with Dr. Amin. 80 yo M with gross hematuria and obstructive LUTS who was recently found to have a small bladder stone in the setting of enlarged prostate (100 g) and elevated PVR (300 ml). Not currently on BPH medications. Eliquis for AF. IPSS 3/2 PSA 6.6 UA without hematuria. Cystoscopy revealing BPH. Very small median lobe. TRUS with 96 g gland He is interested in proceeding with cystolitholapaxy and Aquablation. Patient, his spouse and I hada lengthy discussion regarding Aquablation. Risks, benefits, and alternatives extensively discussed. I explained that Aquablation has a lower risk for retrograde ejaculation (less than 10%) compared to most other outlet procedures. It also has less than a 1% chance of erectile dysfunction or incontinence. Other risks include bleeding, infection, stricture, anesthesia complications, no improvementin symptoms or worsening of urgency and frequency. There is also a remote possibility that he does not have improvement in urinary symptoms or ability to empty his bladder. He understands he will be admitted overnight for 23 hour observation and will have the catheter for at least 2-3 days postoperatively. We will also start him on finasteride to decrease bleeding risk. Will plan for overnight admission.He has been prescribed an enema to do prior to his procedure. Urines and ANNA prior to surgery. HoldEliquis 3 days prior to surgery. Catheter planned for 3-5 days. Also, prescribed Cialis for erectile dysfunction. Side effects discussed. He will take on demand. Sixto Dykes MD Urology documented in this encounter Plan of Treatment Upcoming Encounters Date Type Department Care Team (Late st Contact Info) Description 05/16/2025 8:00 AM CDT Procedure visit Department of Urology in [place], [place] [address] [place] [phone] Stuart Crocker M.D., M.S. [address] [place] [address] 05/20/2025 12:00 PM CDT Clinical Communication Virtual Review in [place], [place] [address] [place] [address] 05/21/2025 1:40 PM CDT Comprehensive Visit Department of Dermatology in [place], [place] [address] [place] [phone] Debby Martinez APRN, C.N.P., D.N.P. [address] [place] [address] 05/22/2025 9:20 AM CDT Comprehensive Visit Department of Family Medicine, [facility], in [place], [place] [address] [phone] Lisa Francisco D.O. [address] [phone] Scheduled Referrals Name Type Priority Associated Diagnoses Order Schedule Preoperative Evaluation ANNA consult (clinic) Outpatient Referral Routine Urgency Urinary Benign Prostatic Hyperplasia Hypertrophy With Obstruction Hyperplasia Prostate Benign Localized Without Obstruction 1 Occurrences starting 04/17/2025 until 07/18/2026 documented as of this encounter Results * Bacterial Culture, Aerobic + Susceptibility, Urine (04/30/2025 10:28 AM CDT) Urine Culture No growth after 1 day of incubation. 05/01/2025 11:44 AM CDT [facility] Urine (Urine, Midstream) 04/30/2025 10:28 AM CDT 04/30/2025 6:39 PM CDT Comment:Specimen Source Site : Urine Sixto Dykes M.D. LAB MICROBIOLOGY - GENERAL OR DERABLES Final Result [facility] [address] [place] [address], [facility] [place] [address] [place] [address] * (ABNORMAL) Urinalysis, with Microscopic: Urine, Midstream (04/30/2025 10:28 AM CDT) Source Urine, Urine, Midstream 04/30/2025 1:29 PM CDT OWAT Clarity Cloudy(A) Clear 04/30/2025 2:18 PM CDT OWAT Color Madeleine 04/30/2025 2:18 PM CDT OWAT Comment: ----REFERENCE VALUE---- Colorless Yellow Madeleine Blood Large(A) Negative 04/30/2025 2:18 PM CDT OWAT Nitrite Negative Negative 04/30/2025 2:18 PM CDT OWAT Leukocyte Esterase Trace(A) Negative 04/30/2025 2:18 PM CDT [facility] Protein 30(A) mg/dL 04/30/2025 2:18 PM CDT OWAT Comment: ----REFERENCE VALUE---- Negative Trace Glucose Negative Negative mg/dL 04/30/2025 2:18 PM CDT OWAT Ketone Trace(A) Negative mg/dL 04/30/2025 2:18 PM CDT OWAT Bilirubin Negative Negative 04/30/2025 2:18 PM CDT OWAT pH 6.5 5.0 - 8.0 04/30/2025 2:18 PM CDT [facility] Specific [place] 1.023 1.001 - 1.035 04/30/2025 2:18 PM CDT OWAT Urobilinogen 0.2 0.2 - 1.0 mg/dL 04/30/2025 2:18 PM CDT OWAT White Blood Cells None Seen /hpf 04/30/2025 2:19 PM CDT OWAT Comment: ----REFERENCE VALUE---- Males: 0-3 Females: 0-10 Unknown: 0-10 Red Blood Cells >100(A) 0 - 2 /hpf 2:19 PM CDT OWAT Dysmorphic Red Blood Cells <=25 <=25 % 04/30/2025 2:19 PM CDT [facility] Urine (Urine, Midstream) 04/30/2025 10:28 AM CDT 04/30/2025 1:11 PM CDT us Sixto Dykes M.D. LAB URINE ORDERABLES Final Re sult [facility] [address] [place] [address], [place] OW[facility] in [place] [address] [place] [address] documented in this encounter Visit Diagnoses Diagnosis Urgency Urinary- Primary Benign Prostatic Hyperplasia Hypertrophy With Obstruction Hyperplasia Prostate Benign Localized Without Obstruction documented in this encounter Additional Health Concerns Assessment Noted Time PHQ-9 Depression Total Score: 0 04/26/20 9:12 AM CDT documented as of this encounter Care Teams Sap Business Objects Developer Relationship Specialty Start Date End Date Lisa Francisco D.O. [address] [place] [address] PCP - General Family Medicine 11/06/24 documented as of this encounter
--- OUTSIDE RECORDS SUMMARY | 2025-04-30 10:20 | XMS_ITS | Encounter Summary ---
Author Organization [facility] Address [address] [place] [address] Care Team Providers Care Presidential Support Specialist Name Role Phone Lisa Francisco D.O. Primary Care Provider [phone] Encounter Details Date Type Department Care Team (Latest Contact Info) Description 04/30/2025 10:20 AM CDT - 04/30/2025 11:59 PM CDT Hospital Encounter Department of Laboratory Medicine in [address] [phone] Sixto Dykes M.D. [address] [place] [address] Urgency Urinary; Benign Prostatic Hyperplasia Hypertrophy With Obstruction; Hyperplasia Prostate Benign Localized Without Obstruction Discharge Disposition: Home or Self Care Social History Tobacco Use Types Packs/Day Years Used Date Smoking Tobacco: Never Passive Smoke Exposure: Never Smokeless Tobacco: Never Alcohol Use Standard Drinks/Week Comments Yes 1 (1 standard drink = 0.6 oz pur e alcohol) [facility] Utilities Answer Date Recorded In the past 12 months has [employer], gas, oil, or water [email or web address] threatened to shut off services in your [...] your living situation today? I have a [facility] place to live 03/03/2025 Education Answer Date Recorded What is the highest level of school you have completed or the highest degree you have received? Some college, no degree 03/22/2019 Sex and Gender Information Value Date Recorded Sex Assigned at Male 03/15/2018 8:53 AM CDT Legal Sex Male 1:32 PM COMPUTER OPERATIONS ANALYST Gender Identity Male 03/15/2018 8:53 AM CDT Sexual Orientation Straight 03/15/2018 8: 53 AM CDT documented as of this encounter Medications at Time of Discharge amoxicillin (AmoxiL) 500 mg capsule TAKE FOUR CAPSULES BY MOUTH ONE HOUR BEFORE APPOINTMENT 4 capsule 2 05/07/2024 apixaban (Eliquis) 5 mg tablet Take 1 tablet (5 mg total) by mouth 2 (two) times a day. Take starting 05/17 if urine remains a clear peach color 180 tablet 3 05/15/2025 ascorbic acid, vitamin C, (VITAMIN C) 500 [...] times a day. 180 tablet 4 05/20/2024 cefdinir (Omnicef) 300 mg capsuleIndication s:Hyperplasia Prostate Benign Localized Without Obstruction Take 1 capsule (300 mg total) by mouth daily for 1 dose. Take this medication the day of stent or catheter removal 1-2 hours prior 1 capsule 05/15/2025 11:41 AM CDT 05/15/2025 5 DME CPAPIndications:A pnea Sleep Obstructive DME Order 1 each 06/28/2021 finasteride (Proscar) 5 mg tablet Take 1 tablet (5 mg total) by mouth daily for 60 days. 30 tablet 1 04/17/2025 5 levothyroxine (Euthyrox) 125 mcg tablet Take 1 tablet (125 mcg total) by mouth daily. 90 tablet 4 05/20/2024 losartan (Cozaar) 25 mg tablet Take 1 tablet (25 mg total) by mouth daily. 90 tablet 3 05/20/2024 multivitamin-mine uhpq-GU-ykhmtgzg- lutein (CENTRUM SILVER) 0.4-300-250 mg-mcg-mcg tablet Take 1 tablet by mouth daily. polyethylene glycol (Miralax) 17 gram/dose oral powder Take 17 g by mouth 2 (two) times a day. Dissolve each 17 g dose in 240 mL (8 ounces) of beverage. tadalafiL (Cialis) 5 mg tablet Take 1 tablet (5 mg total) by mouth daily as needed for erectile dysfunction. May increase up to 4 tablets (20 mg) in 24 hours as needed for desired effect. Do not exceed 20 mg in any 24-hour period. For best results, take at least 2 hours prior to sexual activity. 30 tablet 11 04/17/2025 6 trospium (Sanctura) 20 mg tablet Take 1 tablet (20 mg total) by mouth 2 (two) times a day as needed (for Bladder spasms). 2 tablet 1 05/15/2025 apixaban (Eliquis) 5 mg tablet Take 1 tablet (5 mg total) by mouth 2 (two) times a day. 180 tablet 3 05/20/2024 documented as of this encounter Plan of Treatment Upcoming Encounters Date Type Department Care Team (Late st Contact Info) Description 05/16/2025 8:00 AM CDT Procedure visit Department of Urology in [place], [place] [address] [place] [phone] Stuart Crocker M.D., M.S. [address] [place] [phone] 05/20/2025 12:00 PM CDT Clinical Communication Virtual Review in [place], [place] [address] [place] [address] 05/21/2025 1:40 PM CDT Comprehensive Visit Department of Dermatology in [place], [place] [address] [place] [address] [place] [address] Debby Martinez, JANINE, C.N.P., D.N.P. [address] [place] [phone] 05/22/2025 9:20 AM CDT Comprehensive Visit Department of Family Medicine, [facility] [place], in [place], [place] [address] [place] [address] Lisa Francisco D.O. [address] [place] [address] documented as of this encounter Procedures Procedure Name Priority Date/Time Associated Diagnosis Comments BACTERIAL CULTURE, AEROBIC + SUSC, URINE Routine 04/30/2025 10:28 AM CDT Urgency Urinary Benign Prostatic Hyperplasia Hypertrophy With Obstruction Hyperplasia Prostate Benign Localized Without Obstruction URINALYSIS WITH MICROSCOPIC Routine 04/30/2025 10:28 AM CDT Urgency Urinary Benign Prostatic Hyperplasia Hypertrophy With Obstruction Hyperplasia Prostate Benign Localized Without Obstruction documented in this encounter Results * Bacterial Culture, Aerobic + Susceptibility, Urine (04/30/2025 10:28 AM CDT) Urine Culture No growth after 1 day of incubation. 05/01/2025 11:44 AM CDT [facility] Urine (Urine, Midstream) 04/30/2025 10:28 AM CDT 04/30/2025 6:39 PM CDT Comment:Specimen Source Site : Urine us Sixto Dykes M.D. LAB MICROBIOLOGY - GENERAL OR DERABLES Final Result [facility] [address] [place] [address], [facility] in [place] [address] [place] [address] * (ABNORMAL) Urinalysis, with Microscopic: Urine, Midstream [...] 8.0 04/30/2025 2:18 PM CDT OWAT Specific [place] 1.023 1.001 - 1.035 04/30/2025 2:18 PM [...] 10:28 AM CDT 04/30/2025 1:11 PM CDT Sixto Dykes M.D. LAB URINE ORDERABLES Final Re sult [facility] [address] [place] [address], [facility] OWAT [facility] [place] [address] [place] [phone] documented in this encounter Visit Diagnoses Diagnosis Urgency Urinary Benign Prostatic Hyperplasia Hypertrophy With Obstruction Hyperplasia Prostate Benign Localized Without Obstruction documented in this encounter Additional Health Concerns Assessment Noted Time PHQ-9 Depression Total Score: 0 04/26/20 23 9:12 AM CDT documented as of this encounter Care Teams Presidential Support Specialist Relationship Specialty Start Date End Date Lisa Francisco D.O. [address] [phone] PCP - General Family Medicine 11/06/24 documented as of this encounter
--- OUTSIDE RECORDS SUMMARY | 2025-05-05 10:30 | XMS_ITS | Encounter Summary ---
Author Organization [facility] Address [address] [place] [phone] Care Team Providers Care Skills Auditor Name Role Phone Lisa Francisco D.O. Primary Care Provider [phone] Reason for Visit * Outpatient (Routine) - Closed Specialty Diagnoses / Procedures Referred By Allison t Referred To Contact Anesthesiology Diagnoses Urgency Urinary Benign Prostatic Hyperplasia Hypertrophy With Obstruction Hyperplasia Prostate Benign Localized Without Obstruction Sixto Dykes M.D. [address] [place] [phone] Phone: tel: fax: [facility] Referral ID Status Reason Start Date Expiration Date Visits Re quested Visits Authorized [id number] Closed 04/17/2025 10/17/2026 1 1 Encounter Details Date Type Department Care Team (Latest Contact Info) Description 05/05/2025 10:30 AM CDT Comprehensive Visit Preoperative Evaluation Center in [place], [place] [address] [place] [phone] Sixto Dykes M.D. [address] [place] [phone] Francia Sharif APRN, C.N.P., M.S.N. [address] [place] [phone] Preanesthetic Medical Exam (Primary Dx); Hyperplasia Prostate Benign Localized Without Obstruction; Repair Mitral Valve Status Post; Murmur Heart; Atrial Fibrillation Paroxysmal (HCC); Hyperlipidemia On Treatment; Obesity Body Mass Index 30-39.9 Adult; Hypothyroidism On Replacement; Thrombocytopenia; Anxiety Social History Tobacco Use Types Packs/Day Years [...] your living situation today? I have a [facility] place to live 03/03/2025 Education Answer Date Recorded What is the highest level of school you have completed or the highest degree you have received? Some college, no degree 03/22/2019 Sex and Gender Information Value Date Recorded Sex Assigned at Male 03/15/2018 8:53 AM CDT Legal Sex Male 1:32 PM SOLUTIONS ANALYST Gender Identity Male 03/15/2018 8:53 AM CDT Sexual Orientation Straight 03/15/2018 8: 53 AM CDT documented as of this encounter Last Filed Vital Signs Vital Sign Reading Time Taken Comments Blood Pressure 122/72 05/05/2025 10:19 AM CDT Pulse 55 05/05/2025 10:19 AM CDT Temperature 36.4 C (97.5 F) 05/05/2025 10:19 AM CDT Respiratory Rate - - Oxygen Saturation 98% 05/05/2025 10:19 AM CDT Inhaled Oxygen Concentration - - Weight 107 kg (235 lb 14.3 oz) 05/05/2025 10:19 AM CDT Height 176 cm (5' 9.29) 05/05/2025 10:19 AM CDT Body Mass Index 34.54 05/05/2025 10:19 AM CDT documented in this encounter H&P Notes * Francia Sharif APRN, C.N.P., M.S.N. - 05/05/2025 10:30 AM CDT Images from the original note were not included. REASON FOR VISIT: Preoperative Medical Evaluation REFERRING PHYSICIAN: Sixto Dykes M.D. 05/14/2025: TRANSURETHRAL WATERJET ABLATION OF THE PROSTATE; Sixto Dykes M.D. Surgery Specific Risk Classification: Low Risk SUBJECTIVE HISTORY OF PRESENT ILLNESS Steven Orellana is a 80 y.o. male who is here for preanesthetic medical examination prior to theplanned procedure as listed above. OBJECTIVE OBJECTIVE PHYSICAL EXAMINATION General/Constitutional Constitutional Assessment: Obese General State of Health: Healthy appearing Airway (HEENT) Mallampati: II TM Distance: >3 FB Neck ROM: Full Mouth Opening: > 3 cm Upper Lip Bite Test: I Dental Assessment: Dentition intact Cardiovascular Rhythm: Regular Rate: Normal Cardiovascular Assessment: Normal Pulmonary Pulmonary Assessment: Clear and non labored Neurological Neurologic Assessment: Alert and oriented X 3 Musculoskeletal MSK Assessment: Normal Gait: Normal Ambulate with: None Psychiatric Psychiatric Assessment: Calm Dermatology Skin Assessment: normal ASSESSMENT / PLAN Anesthesia: Patient denies previous anesthesia related complications. Airway Hx: 03/2018, general (CE). LAB: Lab Results Component Value Date HGB 12.9 (L) 05/05/2025 HCT 37.5 (L) 05/05/2025 PLT 80 (L) 05/05/2025 NA 142 05/05/2025 KSERUM 5.0 05/05/2025 CREATININE 1.22 05/05/2025 EGFR 60 05/05/2025 TSH 1.6 05/06/2024 EC04/04/2025 ECHO: 04/04/2025 Final Impressions 1. Transthoracic outreach echo interpretation. [...] occurred. Side by side comparisonof images performed. #1 Preanesthetic Medical Exam Delightful 80-year-old never smoker presents for ANNA. Has 1-2 alcoholic drinks weekly. No recreational drug use. Is extremely active around his acreage. Can walk long distances and up and down multiple flights of steps without issues. Denies cardiopulmonary symptoms at rest or with activity. 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 One episode of hematuria a week ago. Endorses weak urinary stream, frequency, and urgency. Has not had a recent UTI. #4 Thrombocytopenia Chronic. No known etiology. Platelet count has ranged from 73-127 dating back to 2011. #5 Cardiomyopathy (HCC) #6 Repair Mitral Valve Status Post #7 Flutter Atrial (HCC) #8 Hyperlipidemia On Treatment Followed by Cardiology, last seen 04/10/25. Please see this note for full details on clinical course. Testing as above. Patient is stable on current medication regimen, which he will continue. Last dose of apixaban will be May 10 in the evening. #9 Apnea Sleep Obstructive Compliant with CPAP. Instructed patient to bring machine with the day of surgery. #10 Hypothyroidism On Replacement Continue levothyroxine. #11 Obesity Body Mass Index 30-39.9 Adult BMI 34.5 with associated hyperlipidemia and sleep apnea. PATIENT EDUCATION: [facility] Checklist For Surgical Patient's (pamphlet link: Instructions To Get Ready for Your Surgery or Procedure [facility]:[place]wen). RECOMMENDATIONS: Patient medically optimized for planned procedure: Yes Further Recommendations: None documented in this encounter Plan of Treatment Upcoming Encounters Date Type Department Care Team (Late st Contact Info) Description 05/16/2025 8:00 AM CDT Procedure visit Department of Urology in [place], [place] [address] [place] [phone] Stuart Crocker M.D., M.S. [address] [place] [phone] 05/20/2025 12:00 PM CDT Clinical Communication Virtual Review in [place], [place] 200 [place] [phone] 05/21/2025 1:40 PM CDT Comprehensive Visit Department of Dermatology in [address] [place] [phone] Debby Martinez APRN, C.N.P., D.N.P. [address] [place] [phone] 05/22/2025 9:20 AM CDT Comprehensive Visit Department of Family Medicine, [facility], in [place], [place] [address] [place] [phone] Lisa Francisco D.O. [address], [place] [phone] documented as of this encounter Results * (ABNORMAL) Basic Metabolic Panel (05/05/2025 11:50 AM CDT) Potassium, S 5.0 3.6 - 5.2 mmol/L 05/05/2025 12:46 PM CDT DTL Sodium, S 142 135 - 145 mmol/L 05/05/2025 12:46 PM CDT DTL Chloride, S 106 98 - 107 mmol/L 05/05/2025 12:46 PM CDT DTL Bicarbonate, S 26 22 - 29 mmol/L 05/05/2025 12:46 PM CDT DTL Anion Gap 10 7 - 15 05/05/2025 12:46 PM CDT DTL BUN (Blood Urea Nitrogen), S 25(H) 8 - 24 mg/dL 05/05/2025 12:46 PM CDT DTL Creatinine 1.22 0.74 - 1.35 mg/dL 05/05/2025 12:46 PM CDT DTL Estimated GFR (eGFR) 60 >=60 mL/min/BSA 05/05/2025 12:46 PM CDT DTL Comment: Estimated GFR calculated using the 2020 CKD_EPI creatinine equation. Calcium, Total, S 9.4 8.8 - 10.2 mg/dL 05/05/2025 12:46 PM CDT DTL Glucose, S 97 70 - 140 mg/dL 05/05/2025 12:46 PM CDT DTL Blood (Blood, Venous) 05/05/2025 11:50 AM CDT 05/05/2025 12:05 PM CDT Francia Sharif APRN C.N.P., M.S.N. LAB BLOOD ADD-ON Final Result [facility] [address] [place] [address], [facility] [address] [place] [address] * (ABNORMAL) CBC with Differential, Blood (05/05/2025 11:50 AM CDT) Hemoglobin 12.9(L) 13.2 - 16.6 g/dL 05/05/2025 12:51 PM CDT DTL Hematocrit 37.5(L) 38.3 - 48.6 % 05/05/2025 12:51 PM CDT DTL Erythrocytes 4.06(L) 4.35 - 5.65 x10(12)/L 05/05/2025 12:51 PM CDT DTL MCV 92.4 78.2 - 97.9 fL 05/05/2025 12:51 PM CDT DTL RBC Distrib Width 11.8 11.8 - 14.5 % 05/05/2025 12:51 PM CDT DTL Platelet Count 80(L) 135 - 317 x10(9)/L 05/05/2025 12:51 PM CDT DTL Leukocytes 4.0 3.4 - 9.6 x10(9)/L 05/05/2025 12:51 PM CDT DTL Neutrophils 2.26 1.56 - 6.45 x10(9)/L 05/05/2025 12:51 PM CDT DHPM Lymphocytes 1.21 0.95 - 3.07 x10(9)/L 05/05/2025 12:51 PM CDT DTL Monocytes 0.48 0.26 - 0.81 x10(9)/L 05/05/2025 12:51 PM CDT DTL Eosinophils 0.08 0.03 - 0.48 x10(9)/L 05/05/2025 12:51 PM CDT DTL Basophils <0.03 0.01 - 0.08 x10(9)/L 05/05/2025 12:51 PM CDT DTL Blood (Blood, Venous) 05/05/2025 11:50 AM CDT 05/05/2025 12:07 PM CDT us Francia Sharif APRN, C.N.P., M.S.N. LAB BLOOD ADD-ON Final Result [facility] [address] [place] [address], [place] DTL [facility] [address] [place] [address] DHPM [facility] [address] [place] [address] documented in this encounter Visit Diagnoses Diagnosis Preanesthetic Medical Exam- Primary Hyperplasia Prostate Benign Localized Without Obstruction Repair Mitral Valve Status Post Murmur Heart Atrial Fibrillation Paroxysmal (HCC) Hyperlipidemia On Treatment Obesity Body Mass Index 30-39.9 Adult Hypothyroidism On Replacement Thrombocytopenia Anxiety documented in this encounter Additional Health Concerns Assessment Noted Time PHQ-9 Depression Total Score: 0 04/26/20 23 9:12 AM CDT documented as of this encounter Care Teams Skills Auditor Relationship Specialty Start Date End Date Lisa Francisco D.O. [address] [phone] PCP - General Family Medicine 11/06/24 documented as of this encounter
--- OUTSIDE RECORDS SUMMARY | 2025-05-05 11:19 | XMS_ITS | Encounter Summary ---
Author Organization [facility] Address [address] [place] [address] Care Team Providers Care Time Analysis Clerk Name Role Phone Lisa Francisco D.O. Primary Care Provider [phone] Encounter Details Date Type Department Care Team (Latest Contact Info) Description 05/05/2025 11:19 AM CDT - 05/05/2025 11:59 PM CDT Hospital Encounter Department of Laboratory Medicine and Pathology, [facility] in [place], [place] [address] [place] [phone] Francia Sharif, JANINE, C.N.P., M.S.N. [address] [place] [phone] Preanesthetic Medical Exam Discharge Disposition: Home or Self Care Social History Tobacco Use Types Packs/Day Years Used Date Smoking Tobacco: Never Passive Smoke Exposure: Never Smokeless Tobacco: Never Alcohol Use Standard Drinks/Week Comments Yes 1 (1 standard drink = 0.6 oz pur e alcohol) [facility] Utilities Answer Date Recorded In [...] your living situation today? I have a [facility] place to live 03/03/2025 Education Answer Date Recorded What is the highest level of school you have completed or the highest degree you have received? 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 30 tablet 1 04/17/2025 5 levothyroxine (Euthyrox) 125 mcg tablet Take 1 tablet (125 mcg total) by mouth daily. 90 tablet 4 05/20/2024 losartan (Cozaar) 25 mg tablet Take 1 tablet (25 mg total) by mouth daily. 90 tablet 3 05/20/2024 multivitamin-mine kqxn-CW-pdwmvqxt- lutein (CENTRUM SILVER) 0.4-300-250 mg-mcg-mcg tablet Take [...] CDT Procedure visit Department of Urology in [place], [place] [address] [place] [phone] Stuart Crocker M.D., M.S. [address] [place] [phone] 05/20/2025 12:00 PM CDT Clinical Communication Virtual Review in [place], [place] 200 [place] [phone] 05/21/2025 1:40 PM CDT Comprehensive Visit Department of Dermatology in [place], [place] [address] [place] [address] [place] [phone] Debby Martinez, JANINE, C.N.P., D.N.P. [address] [place] [phone] 05/22/2025 9:20 AM CDT Comprehensive Visit Department of Family Medicine, [facility], in [place], [place] [address] [place] [phone] Lisa Francisco D.O. [address] [place] [phone] documented as of this encounter Procedures Procedure Name Priority Date/Time Associated Diagnosis Comments CBC WITH DIFFERENTIAL, B Routine 05/05/2025 11:50 AM CDT Preanesthetic Medical Exam BASIC METABOLIC PANEL, S/P Routine 05/05/2025 11:50 AM CDT Preanesthetic Medical Exam documented in this encounter Results * (ABNORMAL) Basic Metabolic [...] 11:50 AM CDT 05/05/2025 12:05 PM CDT us Francia Sharif APRN, C.N.P., M.S.N. LAB BLOOD ADD-ON Final Result [facility] [address] [place] [address], [facility] [address] [place] [address] * (ABNORMAL) CBC with Differential, Blood (05/05/2025 11:50 AM CDT) Pathologist [facility] Hemoglobin 12.9(L) 13.2 - 16.6 g/dL 05/05/2025 [...] C.N.P., M.S.N. LAB BLOOD ADD-ON Final Result [facility] [address] [place] [address], [facility] DTL [facility] [address] [place] [address] [facility] [place] [address] [place] [address] documented in this encounter Visit Diagnoses Diagnosis Preanesthetic Medical Exam documented in this encounter Additional Health Concerns Assessment Noted Time PHQ-9 Depression Total Score: 0 04/26/20 23 9:12 AM CDT documented as of this encounter Care Teams Time Analysis Clerk Relationship Specialty Start Date End Date Lisa Francisco D.O. [address] [phone] PCP - General Family Medicine 11/06/24 documented as of this encounter
--- OUTSIDE RECORDS SUMMARY | 2025-05-14 09:48 | XMS_ITS | Encounter Summary ---
Author Organization [facility] Address [address] [place] [address] Care Team Providers Care Mortar Mixer Name Role Phone Lisa Francisco D.O. 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 [address] [place] [phone] Phone: tel: fax: [facility] Referral ID Status Reason Start Date Expiration Date V isits Requested Visits Authorized [id number] Authorized 05/15/2025 08/15/2026 1 1 * Outpatient (Routine) - Authorized Specialty Diagnoses / Procedures Referred By Contac t Referred To Contact Urology Stuart Crocker M.D., M.S. 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 [address] [place] [address] Phone: tel: fax: [facility] Referral ID Status Reason Start Date Expiration Date V isits Requested Visits Authorized [id number] Authorized 05/15/2025 08/15/2026 1 1 Encounter Details Date Type Department Care Team (Latest Contact Info) Description 05/14/2025 9:48 AM CDT - 05/15/2025 12:19 PM CDT Hospital Encounter [facility], [facility], Fifth Floor [address] [place] [address] Sixto Dykes M.D. 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 No 05/14/2025 Within the last year, have y ou been humiliated or emotionally abused in other ways by your partner or ex-partner? No Within the last year, have y ou been kicked, hit, slapped, or otherwise physically hurt by your partner or ex-partner? No 05/14/2025 Within the last year, have y ou been raped or forced to have any kind of sexual activity by your partner or ex-partner? No 05/14/2025 Hunger Vital Sign Answer Date Recorded Within the past 12 months, y ou worried that your food would run out before you got the money to buy more. Never true 05/14/20 25 Within the past 12 months, t he food you bought just didn't last and you didn't have money to get more. Never true 05/14/2025 PRAPARE - Transportation Answer Date Re corded In the past 12 months, has l ack of transportation kept you from medical appointments or from getting medications? No 04/26 In the past 12 months, has l ack of transportation kept you from meetings, work, or from getting things needed for daily living? No 05/14/2025 [facility] Utilities Answer Date Recorded In the past 12 months has th e electric, gas, oil, or water company threatened to shut off services in your home? No 05/14/2025 Depression Answer Date Recor ded PHQ-9 Total Score (max 27) 0 04/26 Housing Stability Answer Date Recorded What is your living situation today? I have a [facility] place to live 05/14/2025 Education Answer Date Recorded What is the highest level of school you have completed or the highest degree you have received? Some college, no degree 03/22/2019 Sex and Gender Information Value Date Recorded Sex Assigned at Male 03/15/2018 8:53 AM CDT Legal Sex Male 1:32 PM [employer] Gender Identity Male 03/15/2018 8:53 AM CDT Sexual Orientation Straight 03/15/2018 8: 53 AM CDT documented as of this encounter Last Filed Vital Signs Vital Sign Reading Time Taken Comments Blood Pressure 127/69 05/15/2025 11:26 AM CDT Pulse 61 05/15/2025 11:26 AM CDT Temperature 36.9 C (98.4 F) 05/15/2025 11:26 AM CDT Respiratory Rate 16 05/15/2025 11:26 AM CDT Oxygen Saturation 98% 05/15/2025 11:26 AM CDT Inhaled Oxygen Concentration - - Weight 107 kg (235 lb 14.3 oz) 05/14/2025 10:05 PM CDT Height 177.8 cm (5' 10) 05/14/2025 10:05 PM CDT Body Mass Index 33.85 05/14/2025 10:05 PM CDT documented in this encounter Discharge Summaries * Stuart Crocker M.D., M.S. - 05/15/2025 7:53 AM CDT DISCHARGE SUMMARY BRIEF OVERVIEW Hospital: [facility] Discharge Provider: Sixto Dykes M.D. Primary Team: [facility] Primary Care Providers: Lisa Francisco D.O. (General) [address] 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 * Surgery Information This Encounter Past Procedures (05/15/2024 to Today) Date Procedures Providers Loc / Dept 05/14/2025 TRANSURETHRAL WATERJET ABLATION PROSTATE, CYSTOLITHOLAPAXY Sixto Dykes M.D.Braeden Hawley M.D., Ph.D.Nieves Vargas M.D. [facility] 07 OR DISCHARGE DISPOSITION Home or Self Care [1] OUTPATIENT FOLLOW UP Scheduled Appointments 05/20/2025 12:00 PM [facility] INTAKE VISIT Admitting/Central Scheduling 05/21/2025 1:40 PM Debby Martinez APRN, C.N.P., D.N.P. Dermatology 05/22/2025 9:20 AM Lisa Francisco D.O. Family Medicine For appointment details refer to your Patient Appointment Guide. 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 Procedure was performed without complication. HOSPITAL COURSE Following the procedure, the patient was transferred to general floor care in stable condition. CBIwas held the morning of and urine appeared clear peach urine. The postoperative course was otherwise uneventful. By the time of dismissal, the patient was ambulatory, tolerating an oral diet, and pain was controlled with oral medications. He met criteria for dismissal and was discharged home. No changes were made to the patient's home medications. PHYSICAL EXAMINATION General: Alert and oriented x 3. No acute distress. Skin: Extremities are warm and well perfused. Lungs: Good respiratory effort. Nonlabored. Abdomen: Abdomen soft, nontender, nondistended. : Catheter draining Neuro: Neurologically grossly intact without focal deficits. Psych: Normal behavior and affect. DISMISSAL LABS: No results found for: CREATININE No results found for: HGB No results found for: WBC Follow up -Catheter removal on 05/16 -Uroflow and Clinic visit in 3 months -PCP follow up in 1-2 weeks CONSULTS ORDERED DURING THIS ADMISSION None CONDITION AT DISCHARGE stable Discharge instructions were provided to the patient and caregiver(s). Total time spent in discharge services today: 30 minutes. documented in this encounter Discharge Instructions * Discharge Instructions* Berny Almanzar - 05/14/2025 1:58 PM CDT You were discharged from the [facility] Service. Please identify this service name if youcall with questions after hospitalization. * Attachments The following attachments cannot be sent through Care Everywhere. * Cefdinir (By mouth) (Finnish) * Trospium (By mouth) (Finnish) documented in this encounter Medications at Time of Discharge [...] mouth daily. 90 tablet 3 05/20/2024 multivitamin-mine wnab-UC-ehyfwphr- lutein (CENTRUM SILVER) 0.4-300-250 mg-mcg-mcg tablet Take [...] (for Bladder spasms). 2 tablet 1 05/15/2025 documented as of this encounter Progress Notes * Elisha Cabezas R.R.T., L.R.T. - 05/14/2025 10:55 PM CDT 05/14/252254 BPAP/CPAP Therapy BPAP/CPAP Interface Full face mask Patient's Own Equipment Mask;Tubing;CPAP;Patient able to manage equipment on own Skin barrier Not indicated per interface BPAP/CPAP Mode Per Home Settings Electronically signed by: Elisha Cabezas R.R.T., JusRLudwigTLudwig 05/15/25 6:43 AM CDT * Kathya Ziegler Pharm.D., R.Ph., [facility] - 05/14/2025 2:20 PM CDT Images from the original note were not included. Admission Medication History Note Adherence issues: No concerns Medication list source: Patient and Pharmacy or dispense records Prior to Admission Medications Med List Status: Pharmacy Complete Set By: Kathya Ziegler Pharm.D., R.Ph., [facility] at 52:19 PM Taking? Last Dose Informant Start Date End Date LT amoxicillin (AmoxiL) 500 mg capsule -- -- 05/07/24 -- TAKE FOUR CAPSULES BY MOUTH ONE HOUR BEFORE APPOINTMENT Notes: FOR DENTAL PROCEDURES apixaban (Eliquis) 5 mg tablet 05/10/2025 -- 05/20/24 05/20/25 Take 1 tablet (5 mg total) by mouth 2 (two) times a day. ascorbic acid, vitamin C, (VITAMIN C) 500 mg tablet -- -- 12/01/11 -- Take by mouth daily. atorvastatin (Lipitor) 20 mg tablet 05/13/2025 at Bedtime -- 05/20/24 -- Take 1 tablet (20 mg total) by mouth daily. Patient taking differently: Take 20 mg by mouth at bedtime. B complex-vitamin (SUPER B-50) capsule -- -- -- -- Take 1 capsule by mouth daily. calcium carbonate-vitamin D3 1,500 mg (600 mg calcium)-400 unit per tablet -- -- -- -- Take 1 tablet by mouth daily with breakfast. carvediloL (Coreg) 12.5 mg tablet 05/13/2025 at Evening -- 05/20/24 -- Take 1 tablet (12.5 mg total) by mouth 2 (two) times a day. DME CPAP -- -- 06/28/21 -- DME Order finasteride (Proscar) 5 mg tablet 05/13/2025 at Bedtime -- 04/17/25 06/16/25 Take 1 tablet (5 mg total) by mouth daily for 60 days. Patient taking differently: Take 5 mg by mouth at bedtime. levothyroxine (Euthyrox) 125 mcg tablet 05/13/2025 at Morning -- 05/20/24 -- Take 1 tablet (125 mcg total) by mouth daily. lidocaine-EPINEPHrine 1%-1:200,000 injection 2-50 mL (XYLOCAINE W/EPI) -- -- 07/31/23 -- 2-50 mL, injection, As needed, may repeat if the patient complains of pain/discomfort at the site up to 50 mL for entire procedure, Starting on 07/31/23 at 0806 losartan (Cozaar) 25 mg tablet 05/13/2025 at Bedtime -- 05/20/24 -- Take 1 tablet (25 mg total) by mouth daily. Patient taking differently: Take 25 mg by mouth at bedtime. yydtppffxbec-zuugriwa-YS-lycopene-lutein (CENTRUM SILVER) 0.4-300-250 mg-mcg-mcg tablet -- -- -- -- Take 1 tablet by mouth daily. tadalafiL (Cialis) 5 mg tablet -- -- 04/17/25 04/17/26 Take 1 tablet (5 mg total) by mouth daily as needed for erectile dysfunction. May increase up to 4 tablets (20 mg) in 24 hours as needed for desired effect. Do not exceed 20 mg in any 24-hour period.For best results, take at least 2 hours prior to sexual activity. documented in this encounter H&P Notes * Stuart Crocker M.D., M.S. - 05/14/2025 6:49 PM CDT INTERVAL HISTORY AND PHYSICAL PRE-PROCEDURE UPDATE H&P reviewed. The patient was examined and there are no significant changes to the H&P. Stuart Crocker M.D., M.S. Source Note - Francia Sharif APRN C.N.PLudwig, M.S.N. - 05/05/2025 10:30 AM CDT Images [...] associated hyperlipidemia and sleep apnea. PATIENT EDUCATION: [facility] Checklist For Surgical Patient's (pamphlet link: Instructions To Get Ready for Your Surgery or Procedure [facility]:[place]). RECOMMENDATIONS: Patient medically optimized for planned procedure: Yes Further Recommendations: None documented in this encounter Nursing Notes * Chantel Roman R.N. - 05/15/2025 12:14 PM CDT The patient and family verbalized an understanding of discharge education. The patient is discharging home to self care in a wheelchair via transport service. Electronically signed by: Chantel Roman R.N. 05/15/25 12:14 PM CDT * Chantel Roman R.N. - 05/15/2025 12:13 PM CDT Problem: Risk for Compromised Skin Integrity-Other Manager Of Hospital(s) Goal: Risk for Compromised Skin Integrity-Other Manager Of Hospital(s) Outcome: Adequate for Discharge Problem: Risk for Compromised Skin Integrity-Mejia Activity Score 3 Goal: Achieve optimal activity to maintain or improve skin integrity. Outcome: Adequate for Discharge Problem: SAFETY ADULT Goal: Maintain a safe environment Outcome: Adequate for Discharge Problem: SAFETY ADULT - RISK FOR FALL AND OR FALL INJURY Goal: Patient remains free from fall/fall injury Outcome: Adequate for Discharge Problem: PAIN - ADULT Goal: PT VERBALIZES/DEMONSTRATES ADEQUATE COMFORT LEVEL OR BASELINE Outcome: Adequate for Discharge Problem: KNOWLEDGE DEFICIT Goal: Patient/family/caregiver demonstrates understanding of disease process, treatment plan, medications, and discharge instructions Outcome: Adequate for Discharge Problem: INFECTION - ADULT Goal: Absence of infection during hospitalization Outcome: Adequate for Discharge Problem: SKIN/TISSUE INTEGRITY Goal: Skin/Tissue integrity maintained or improved Outcome: Adequate for Discharge Goal: Oral and Nasal mucous membranes remain intact Outcome: Adequate for Discharge Problem: DISCHARGE PLANNING Goal: Patient discharge needs identified Outcome: Adequate for Discharge Problem: GENITOURINARY - ADULT Goal: Optimize urinary function Outcome: Adequate for Discharge Problem: MUSCULOSKELETAL - ADULT Goal: Return mobility to safest level of function Outcome: Adequate for Discharge Problem: Risk for Compromised Skin Integrity-Other Manager Of Hospital(s) Goal: Risk for Compromised Skin Integrity-Other Manager Of Hospital(s) Outcome: Adequate for Discharge Problem: Risk for Compromised Skin Integrity-Mejia Activity Score 3 Goal: Achieve optimal activity to maintain or improve skin integrity. Outcome: Adequate for Discharge Shift Goals: Clinical Goals for the Shift: Patient will meet criteria for discharge Identify possible barriers to meeting goals/advancing plan of care: none End of Shift Summary: The patient and family verbalized an understanding of discharge education. The patient is discharging home to self care in a wheelchair via transport service. Patient's pain wasmanaged with scheduled and PRN medications. Electronically signed by: Chantel Roman R.N. 05/15/25 12:13 PM CDT documented in this encounter OR Notes * Op Note - Braeden Hawley M.D., Ph.D. 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 Site and scope of surgery were confirmed with the patient and the patient's identity was confirmed. General anesthesia was achieved without complications. Patient was then placed in low dorsal lithotomy position. Appropriate time-out was performed and intravenous antibiotics were given. The TRUS stepper was mounted to the articulating arm and secured to the OR bed. The ultrasound probe was attached to the stepper. The ultrasound probe was aligned and confirmation made that the prostate is centered and aligned using both transverse and sagittal views. Genitals were prepped and draped in the standard sterile fashion. We proceeded with cystourethroscopy. The urethra was unremarkable; the prostate was visually obstructing. Upon entering the bladder we noted a 1.0 cm jackstone calculus in the bladder. The cystoscopewas removed and the urethra was serially dilated to 30 Fr using chery sounds. The resectoscope was introduced with the visual obturator. The holmium 500 laser fiber and pinky were introduced through the resectoscope and the stone was fragmented using laser lithotripsy. The fragments were evacuated and the scope was removed. The AQUABEAM handpiece was introduced into the bladder. The bladder neck, verumontanum and the central/transition zones were identified simultaneously via ultrasound. The AQUABEAM handpiece was secured to the handpiece articulating arm. Confirmed alignment of AQUABEAM handpiece and TRUS probe to beparallel and colinear. Confirmation that AQUABEAM nozzle was centered and anterior to the bladder neck. The cystoscope was then retracted to visualize the veru and external sphincter and the cystoscope tip was positioned just proximal to the external sphincter. We reconfirmed alignment of the TRUS probe with the AQUABEAM handpiece and compression was applied to the probe. Horizontal alignment of the handpiece water jet nozzle was performed. The Aquablation treatment zones were planned utilizing real-time TRUS to visualize the contour of the prostate and the depth and radial angles of resection were defined in the transverse view. In thesagittal view, the AQUABEAM nozzle was identified and positioned registered within the software. The treatment contours were then adjusted to conform to the intended resection margins. All aspects ofthe prostate, bladder neck and veru were marked and confirmed in the treatment contour. The Aquablation treatment was then started following the resection contour confirmed under ultrasound guidance. Total Aquablation resection time: Approximately 9 minutes after 2 passes. Once Aquablation resection was complete, the resectoscope was inserted and tissue and clot evacuation was then performed with resection and cauterization using the loop for adequate hemostasis. This was performed until the urine was light pink in color. A [address] Mckeon catheter was then inserted and the balloon was inflated to 30 cc. CBI was initiated and the ultrasound probe was removed. A belladonna-opium suppository was placed in the rectum. The patient was then awakened and brought to recovery in stable condition and tolerated the procedure well. Braeden Hawley M.D., Ph.D. Cosigned by Sixto Dykes M.D. at 05/14/2025 1:18 PM CDT documented in this encounter Miscellaneous Notes * Hospital Course - Stuart Crocker M.D., M.S. - 05/15/2025 7:21 AM CDT PROCEDURE Patient underwent uncomplicated aquablation on 05/15/[address] Dykes. Procedure was performed without complication. HOSPITAL COURSE Following the procedure, the patient was transferred to general floor care in stable condition. CBIwas held the morning of and urine appeared clear peach urine. The postoperative course was otherwise uneventful. By the time of dismissal, the patient was ambulatory, tolerating an oral diet, and pain was controlled with oral medications. He met criteria for dismissal and was discharged home. No changes were made to the patient's home medications. PHYSICAL EXAMINATION General: Alert and oriented x 3. No acute distress. Skin: Extremities are warm and well perfused. Lungs: Good respiratory effort. Nonlabored. Abdomen: Abdomen soft, nontender, nondistended. : Catheter draining Neuro: Neurologically grossly intact without focal deficits. Psych: Normal behavior and affect. DISMISSAL LABS: No results found for: CREATININE No results found for: HGB No results found for: WBC Follow up -Catheter removal on 05/16 -Uroflow and Clinic visit in 3 months -PCP follow up in 1-2 weeks documented in this encounter Plan of Treatment Upcoming Encounters Date Type Department Care Team (Late st Contact Info) Description 05/16/2025 8:00 AM CDT Procedure visit Department of Urology in [place], [place] [address] [place] [address] Stuart Crocker M.D., M.S. [address] [place] [phone] 05/20/2025 12:00 PM CDT Clinical Communication Virtual Review in [place], [place] [address] [place] [address] 05/21/2025 1:40 PM CDT Comprehensive Visit Department of Dermatology in [place], [place] [address] [place] [phone] Debby Martinez APRN, C.N.P., D.N.P. [address] [place] [phone] 05/22/2025 9:20 AM CDT Comprehensive Visit Department of Family Medicine, [facility], in [place], [place] [address] [phone] Lisa Francisco D.O. [address] [phone] Scheduled Orders Name Type Priority Associated Diagnoses Orde r Schedule URO Uroflow Procedure Routine Hyperplasia Prostate Benign Localized Without Obstruction Benign Prostatic Hyperplasia Hypertrophy With Obstruction Expected: 08/15/2025, Expires: 08/15/2026 URO Urethral cath fill / remove / voiding trial (fill / pull) Procedure Routine Hyperplasia Prostate Benign Localized Without Obstruction Expected: 05/16/2025, Expires: 08/15/2026 Scheduled Referrals Name Type Priority Associated Diagnoses Orde r Schedule Urology office visit (clinic) Outpatient Referral Routine Expected: 08/14/2025, Expires: 08/14/2026 documented as of this encounter Procedures Procedure Name Priority Date/Time Associated Diagnosis Comments PATIENT'S OWN CPAP/BIPAP Routine 025 6:43 AM CDT ADULT OXYGEN THERAPY Routine 05/14/2025 1:04 PM CDT ADULT OXYGEN THERAPY Routine 05/14/2025 1:04 PM CDT CYSTOLITHOLAPAXY 05/14/2025 10:3 4 AM CDT 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 TRANSURETHRAL WATERJET ABLATION OF THE PROSTATE 05/14/2025 10:34 AM CDT 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 Given 05/14/2025 10:11 AM CDT 1,000 mg acetaminophen tablet 1,000 mg (TylenoL) 1,000 mg, oral, Every 6 hours, First dose on Mon05/14/25 at 1330 Given 05/14/2025 10:10 PM CDT 1,000 mg Given 05/14/2025 5:40 PM CDT 1,000 mg atorvastatin tablet 20 mg (Lipitor) 20 mg, oral, Daily at bedtime, First dose on Mon05/14/25 at 2100 Given 05/14/2025 8:24 PM CDT 20 mg bacitracin 500 unit/gram ointment packet 1 packet 1 packet (1 Application), topical, 3 times daily, First dose on Mon05/14/25 at 1400, Apply to tip of penis. Given 05/15/2025 8:16 AM CDT 1 packet Given 05/14/2025 8:24 PM CDT 1 packet Given 05/14/2025 2:30 PM CDT 1 packet carvediloL tablet 12.5 mg (Coreg) 12.5 mg, oral, 2 times daily with meals, First dose (after last modification) on Tessie 05/15/25 at 0800 Given 05/15/2025 8:16 AM CDT 12.5 mg D5W infusion 1-999 mL/hr, intravenous, As needed, Medications Incompatible with 0.9% NaCL, Starting on Mon05/14/25 at 1507, Infuse at the same rate as the piggyback until tubing clears or up to a volume of 20 mL pre and post infusion for medications incompatible with 0.9% NaCL. Use 50 mL bag then discard. finasteride tablet 5 mg (Proscar) 5 mg, oral, Daily at bedtime, First dose on Mon05/14/25 at 2100, For 33 days, See tube feeding guidelines for tube feeding administration instructions. Given 05/14/2025 8:24 PM CDT 5 mg Lactated Ringer's 100 mL/hr, intravenous, Continuous, Starting on Mon05/14/25 at 1030, For 10 hours, Pre-Op, For total volume of 1,000 mL. New Bag 05/14/2025 10:12 AM CDT 100 mL/hr 100 mL/hr Lactated Ringer's 75 mL/hr, intravenous, Continuous, Starting on Mon05/14/25 at 1330, Continue IV fluids from operating room at 125 ml/hour until bag finished, then begin as ordered. New Bag 05/14/2025 2:15 PM CDT 75 mL/hr 75 mL/hr levothyroxine tablet 125 mcg 125 mcg, oral, Daily before morning meal, First dose on Tessie 05/15/25 at 0700 Given 05/15/2025 8:16 AM CDT 125 mcg NaCl 0.9 % irrigation solution 3,000 mL 3,000 mL, irrigation, Continuous, Starting on Mon05/14/25 at 1430, PACU & Post-Op, FOR BLADDER IRRIGATION ONLY, NOT FOR IV USE New Bag 05/14/2025 2:46 PM CDT 3,000 mL NaCl 0.9 % irrigation solution 3,000 mL 3,000 mL, irrigation, Continuous, Starting on Mon05/14/25 at 1145, FOR BLADDER IRRIGATION ONLY, NOT FOR IV USE New Bag 05/14/2025 12:34 PM CDT 3,000 mL NaCl 0.9 % irrigation solution 3,000 mL 3,000 mL, irrigation, Continuous, Starting on Mon05/14/25 at 1145, FOR BLADDER IRRIGATION ONLY, NOT FOR IV USE New Bag 05/15/2025 1:31 AM CDT 3,000 mL New Bag 05/14/2025 1:15 PM CDT 3,000 mL New Bag 05/14/2025 12:30 PM CDT 3,000 mL NaCl 0.9% infusion 1-999 mL/hr, intravenous, As needed, Between Consecutive Piggyback Medications, Starting on Mon05/14/25 at 1507, For 7 days, Infuse at the same rate as the piggyback until tubing clears or up to a volume of 20 mL. Select for IV medication administration when no maintenance IV available or when IV medications are not compatible with maintenance fluid. NaCl 0.9% infusion 1-999 mL/hr, intravenous, As needed, Post Medications (Hazardous/Low Fluid Volume), Starting on Mon05/14/25 at 1507, For 7 days, Infuse at the same rate as the medication until tubing cleared of medication, then discard. oxyCODONE IR tablet 10 mg (Roxicodone) 10 mg, oral, Every 4 hours PRN, severe pain or score 7-10 of 10, May use if patient can take oral meds and other analgesics are ineffective, Starting on Mon05/14/25 at 1304 oxyCODONE IR tablet 5 mg (Roxicodone) 5 mg, oral, Every 4 hours PRN, moderate pain or score 4-6 of 10, May use if patient can take oral meds and other analgesics are ineffective, Starting on Mon05/14/25 at 1304 Given 05/14/2025 8:24 PM CDT 5 mg Given 05/14/2025 1:21 PM CDT 5 mg polyethylene glycol powder packet 17 g (Miralax) 17 g, oral, 2 times daily PRN, constipation, Starting on Mon05/14/25 at 1849, Dissolve in 240 mLs (8 ounces) of water prior to giving. Avoid mixing with starch-based thickened liquids. Given 05/15/2025 8:15 AM CDT 17 g Given 05/14/2025 8:31 PM CDT 17 g sennosides tablet 8.6 mg (Senokot) 8.6 mg, oral, Daily, First dose (after last modification) on Mon05/14/25 at 1700 Given 05/15/2025 8:16 AM CDT 8.6 mg Given 05/14/2025 5:40 PM CDT 8.6 mg sodium chloride 0.9 % injection 10 mL 10 mL, intravenous, As needed, line care, Peripheral Intravenous Catheter and Rapid Infusion Catheter, Starting on Mon05/14/25 at 1507, Prior to blood sampling, post blood transfusion or post blood sampling. sodium chloride 0.9 % injection 3 mL 3 mL, intravenous, As needed, line care, Peripheral Intravenous Catheter and Rapid Infusion Catheter, Starting on Mon05/14/25 at 1507, Prior to and following infusion and between multiple consecutive infusions. sodium chloride 0.9 % injection 3 mL 3 mL, intravenous, Every 24 hours scheduled, First dose on Tessie 05/15/25 at 0900, Peripheral Intravenous Catheter and Rapid Infusion Catheter: When no infusion to maintain patency. Given 05/15/2025 8:17 AM CDT 3 mL trospium tablet 20 mg (Sanctura) 20 mg, oral, 2 times daily PRN, bladder spasms, Starting on Mon05/14/25 at 1304, Administer with water at least 1 hr prior to meals., Restriction Criteria (Pharmacy will review and approve if criteria met): Use in patients 65 years of age or older Given 05/14/2025 8:24 PM CDT 20 mg Given 05/14/2025 1:08 PM CDT 20 mg documented in this encounter Active and Recently Administered Medications Times are shown in CDT. Scheduled Medication Order 05/13/2025 05/14/2025 05/15/2025 acetaminophen tablet 1,000 mg (TylenoL) (COMPLETED) 1,000 mg, oral, Once, On Mon05/14/25 at 1030, For 1 dose, Pre-Op, PreOp give in preprocedural area. 1011 (Given - Provider: Sonia Guaman RDestin) acetaminophen tablet 1,000 mg (TylenoL) 1,000 mg, oral, Every 6 hours, First dose on Mon05/14/25 at 1330 1740 (Given - Provider: Chantel Roman RDestin)2210 (Given - Provider: Clau Peña RLudwigNLudwig) 0431 (Not Given - Provider: Bhavna Prieto RLudwigNLudwig - Reason: Patient/family refused)1031 (Not Given - Provider: Chantel Roman R.N. - Reason: Other) atorvastatin tablet 20 mg (Lipitor) 20 mg, oral, Daily at bedtime, First dose on Mon05/14/25 at 2100 2023 (Given - Provider: Karen Mishra R.N.) bacitracin 500 unit/gram ointment packet 1 packet 1 packet (1 Application), topical, 3 times daily, First dose on Mon05/14/25 at 1400, Apply to tip of penis. 1430 (Given - Provider: Caron Montenegro R.N.)2023 (Given - Provider: Karen Mishra R.N.) 0816 (Given - Provider: Chantel Roman R.N.) belladonna alkaloids-opium 16.2-60 mg suppository 1 suppository (B&O Supprettes) (COMPLETED) 1 suppository, rectal, Once, On Mon05/14/25 at 1015, For 1 dose, Intra-Op 1015 (Due)1230 (Given - Provider: Sixto Dykes M.D.) carvediloL tablet 12.5 mg (Coreg) 12.5 mg, oral, 2 times daily with meals, First dose (after last modification) on Mon05/15/25 at 0800 0816 (Given - Provid er: Chantel Roman R.N.) ceFAZolin injection 2,000 mg (Ancef) (COMPLETED) 2,000 mg (rounded from 2,675 mg = 25 mg/kg 107 kg), intravenous, Once, On Mon05/14/25 at 1015, For 1 dose, Intra-Op, Administer within 1 hour prior to surgical incision For immediate IV push administration, reconstitute vial per IVAG or package insert instructions. See IVAG for administration guidelines., Drug Monitoring Program: Pharmacist to adjust medication dosing based on indication and drug clearance factors., Indications: Prophylaxis, surgical 1113 (Given - Provider: Maxwell Fox, RN DIGESTIVE, ROTARY SOIL STABILIZER, DNAP) finasteride tablet 5 mg (Proscar) 5 mg, oral, Daily at bedtime, First dose on Mon05/14/25 at 2100, For 33 days, See tube feeding guidelines for tube feeding administration instructions. 2023 (Given - Provider: Karen Mishra R.N.) levothyroxine tablet 125 mcg 125 mcg, oral, Daily before morning meal, First dose on Mon05/15/25 at 0700 0816 (Given - Provid er: Chantel Roman R.N.) losartan tablet 25 mg (Cozaar) 25 mg, oral, Daily at bedtime, First dose on Mon05/15/25 at 2100 sennosides tablet 8.6 mg (Senokot) 8.6 mg, oral, Daily, First dose (after last modification) on Mon05/14/25 at 1700 1740 (Given - Provider: Chantel Roman R.N.) 0816 (Given - Provider: Chantel Roman R.N.) sodium chloride 0.9 % injection 3 mL 3 mL, intravenous, Every 24 hours scheduled, First dose on Tessie 05/15/25 at 0900, Peripheral Intravenous Catheter and Rapid Infusion Catheter: When no infusion to maintain patency. 0817 (Given - Provid er: Chantel Roman R.N.) tranexamic acid in NaCl IVPB 1,000 mg (Cyklokapron) (COMPLETED) 1,000 mg (1 g), intravenous, Once, On Mon05/14/25 at 1015, For 1 dose, Intra-Op 1108 (Given - Provider: Maxwell Fox, RN DIGESTIVE, ROTARY SOIL STABILIZER, DNAP) Continuous Medication Order 05/13/2025 05/14/2025 05/15/2025 Lactated Ringer's (CANCELED) 100 mL/hr, intravenous, Continuous, Starting on Mon05/14/25 at 1030, For 10 hours, Pre-Op, For total volume of 1,000 mL. 1012 (New Bag - Provider: Sonia Guaman RDestin) Lactated Ringer's 75 mL/hr, intravenous, Continuous, Starting on Mon05/14/25 at 1330, Continue IV fluids from operating room at 125 ml/hour until bag finished, then begin as ordered. 1415 (New Bag - Provider: Caron Montenegro R.N.)1746 (Stopped - Provider: Chantel Roman R.N.) NaCl 0.9 % irrigation solution 3,000 mL 3,000 mL, irrigation, Continuous, Starting on Mon05/14/25 at 1430, PACU & Post-Op, FOR BLADDER IRRIGATION ONLY, NOT FOR IV USE 1446 (New Bag - Provider: Red Weiss) NaCl 0.9 % irrigation solution 3,000 mL 3,000 mL, irrigation, Continuous, Starting on Mon05/14/25 at 1145, FOR BLADDER IRRIGATION ONLY, NOT FOR IV USE 1234 (New Bag - Provider: Reema Black RLudwigN.) NaCl 0.9 % irrigation solution 3,000 mL 3,000 mL, irrigation, Continuous, Starting on Mon05/14/25 at 1145, FOR BLADDER IRRIGATION ONLY, NOT FOR IV USE 1230 (New Bag - Provider: Reema Black RYeison.)1315 (New Bag - Provider: Jose Moore) 0131 (New Bag - Provider: Shanon Mckeon) PRN Medication Order 05/13/2025 05/14/2025 05/15/2025 alum-mag hydroxide-simeth 200-200-20 mg/5 mL suspension 30 mL (Maalox) 30 mL, oral, 4 times daily PRN, indigestion, Starting on Mon05/14/25 at 1304 benzocaine-menthoL 15-3.6 mg per lozenge 1 lozenge (CepacoL) 1 lozenge, oral, As needed, sore throat, Starting on Mon05/14/25 at 1304 calcium carbonate chewable tablet 200 mg of calcium (Tums) 200 mg of calcium, oral, Daily PRN, heartburn, indigestion, Starting on Mon05/14/25 at 1414, calcium carbonate chewable 500 mg (200 mg elemental) was interchanged for calcium carbonate chewable 500 mg calcium carbonate contains 200 mg of elemental calcium. D5W infusion 1-999 mL/hr, intravenous, As needed, Medications Incompatible with 0.9% NaCL, Starting on Mon05/14/25 at 1507, Infuse at the same rate as the piggyback until tubing clears or up to a volume of 20 mL pre and post infusion for medications incompatible with 0.9% NaCL. Use 50 mL bag then discard. diphenhydrAMINE capsule 25 mg (BenadryL) 25 mg, oral, Every 4 hours PRN, itching, Starting on Mon05/14/25 at 1304 haloperidol lactate injection 1 mg (HaldoL) 1 mg, intravenous, Every 6 hours PRN, nausea, vomiting, Starting on Mon05/14/25 at 1304, For 48 hours, Total of 3 doses in 24 hour period. RASS must be -2 or higher to administer. Reassess for nausea or vomiting after at least 10 minutes. If nausea or vomiting persists administer next ordered antiemetic medications (order for antiemetic medication administration ondansetron then haloperidol then prochlorperazine) lidocaine-prilocaine 2.5-2.5 % cream 1 Application (Emla) 1 Application, topical, As needed, mild pain or score 1-3 of 10, for catheter pain at tip of penis, Starting on Mon05/14/25 at 1414 NaCl 0.9% infusion 1-999 mL/hr, intravenous, As needed, Between Consecutive Piggyback Medications, Starting on Mon05/14/25 at 1507, For 7 days, Infuse at the same rate as the piggyback until tubing clears or up to a volume of 20 mL. Select for IV medication administration when no maintenance IV available or when IV medications are not compatible with maintenance fluid. NaCl 0.9% infusion 1-999 mL/hr, intravenous, As needed, Post Medications (Hazardous/Low Fluid Volume), Starting on Mon05/14/25 at 1507, For 7 days, Infuse at the same rate as the medication until tubing cleared of medication, then discard. naloxone injection 0.2 mg (Narcan) 0.2 mg, intravenous, As needed, respiratory depression, Starting on Mon05/14/25 at 1304, For RASS Score -4 or less, respiratory rate of less than 8 breaths/min. Notify provider/service and rapid response team (if available at institution). ondansetron (PF) injection 4 mg (Zofran) 4 mg, intravenous, Every 6 hours PRN, nausea, vomiting, Starting on Mon05/14/25 at 1304, For 48 hours, Reassess for nausea or vomiting after at least 10 minutes. If nausea or vomiting persists administer next ordered antiemetic medications (order for antiemetic medication administration ondansetron then haloperidol then prochlorperazine). oxyCODONE IR tablet 10 mg (Roxicodone)(Linked Group 1) 10 mg, oral, Every 4 hours PRN, severe pain or score 7-10 of 10, May use if patient can take oral meds and other analgesics are ineffective, Starting on Mon05/14/25 at 1304 1321 (See Alternative - Provider: Sonia Guaman R.N.)2023 (See Alternative - Provider: Karen Mishra R.N.) oxyCODONE IR tablet 5 mg (Roxicodone)(Linked Group 1) 5 mg, oral, Every 4 hours PRN, moderate pain or score 4-6 of 10, May use if patient can take oral meds and other analgesics are ineffective, Starting on Mon05/14/25 at 1304 1321 (Given - Provider: Sonia Guaman R.N.)2023 (Given - Provider: Karen Mishra R.N.) phenoL 1.4 % spray 1 spray (Chloraseptic) 1 spray, mouth/throat, As needed, sore throat, Starting on Mon05/14/25 at 1414 polyethylene glycol powder packet 17 g (Miralax) 17 g, oral, 2 times daily PRN, constipation, Starting on Mon05/14/25 at 1849, Dissolve in 240 mLs (8 ounces) of water prior to giving. Avoid mixing with starch-based thickened liquids. 2030 (Given - Provider: Karen Mishra R.N.) 08 (Given - Provider: Chantel Roman R.N.) prochlorperazine injection 5 mg (Compazine) 5 mg, intravenous, Every 6 hours PRN, nausea, vomiting, Starting on Mon05/14/25 at 1304, For 48 hours, RASS must be -2 or higher to administer. Reassess for nausea/vomiting after at least 10 minutes. If nausea or vomiting persists administer next ordered antiemetic medications (order for antiemetic medication administration ondansetron then haloperidol then prochlorperazine) sodium chloride 0.9 % injection 10 mL 10 mL, intravenous, As needed, line care, Peripheral Intravenous Catheter and Rapid Infusion Catheter, Starting on Mon05/14/25 at 1507, Prior to blood sampling, post blood transfusion or post blood sampling. sodium chloride 0.9 % injection 3 mL 3 mL, intravenous, As needed, line care, Peripheral Intravenous Catheter and Rapid Infusion Catheter, Starting on Mon05/14/25 at 1507, Prior to and following infusion and between multiple consecutive infusions. trospium tablet 20 mg (Sanctura) 20 mg, oral, 2 times daily PRN, bladder spasms, Starting on Mon05/14/25 at 1304, Administer with water at least 1 hr prior to meals., Restriction Criteria (Pharmacy will review and approve if criteria met): Use in patients 65 years of age or older 1308 (Given - Provider: Sonia Guaman R.N.)2023 (Given - Provider: Karen Mishra R.N.) Linked Groups Order Group 1: oxyCODONE IR tablet 5 mg (Roxicodone)Jump to med 5 mg, oral, Every 4 hours PRN, moderate pain or score 4-6 of 10, May use if patient can take oral meds and other analgesics are ineffective, Starting on Mon05/14/25 at 1304 Or oxyCODONE IR tablet 10 mg (Roxicodone)Jump to med 10 mg, oral, Every 4 hours PRN, severe pain or score 7-10 of 10, May use if patient can take oral meds and other analgesics are ineffective, Starting on Mon05/14/25 at 1304 documented in this encounter Additional Health Concerns Assessment Noted Time PHQ-9 Depression Total Score: 0 04/26/20 23 9:12 AM CDT documented as of this encounter Care Teams Mortar Mixer Relationship Specialty Start Date End Date Lisa Francisco D.O. [address], [place] [phone] PCP - General Family Medicine 11/06/24 documented as of this encounter
--- OUTSIDE RECORDS SUMMARY | 2025-05-14 10:42 | XMS_ITS | Encounter Summary ---
Author Organization [facility] Address [address] [place] [id number] Care Team Providers Care Hedge Fund Principal Name Role Phone Lisa Francisco D.O. Primary Care Provider [phone] Encounter Details Date Type Department Care Team (Late st Contact Info) Description 05/14/2025 10:42 AM CDT - 05/14/2025 1:21 PM CDT Surgery Outpatient Procedure Center in [place], [place] [address] [place] [address] Sixto Dykes M.D. [address] [place] [phone] TRANSURETHRAL WATERJET ABLATION PROSTATE Social History Tobacco Use Types Packs/Day Years [...] things needed for daily living? No 05/14/2025 [facility] Utilities Answer Date Recorded In the past 12 months has th e electric, gas, oil, or water company threatened to shut off services in your home? No 05/14/2025 Depression Answer Date Recor ded PHQ-9 Total Score (max 27) 0 04/26 Housing Stability Answer Date Recorded What is your living situation today? I have a [facility] place to live 05/14/2025 Education Answer Date Recorded What is the highest level of school you have completed or the highest degree you have received? 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 - 05/15/2025 7:53 AM CDT DISCHARGE SUMMARY BRIEF OVERVIEW Hospital: [facility] Discharge Provider: Sixto Dykes M.D. Primary Team: [facility] [place] Primary Care Providers: Lisa Francisco D.O. (General) [address] [facility] [phone] Primary Care Provider Primary Care Provider Other [...] TRANSURETHRAL WATERJET ABLATION PROSTATE, CYSTOLITHOLAPAXY Sixto Dykes M.D.Gutierrez, Wade R, M.D., Ph.D.Nieves Vargas M.D. [facility] [place] 07 OR DISCHARGE DISPOSITION Home or Self Care [1] OUTPATIENT FOLLOW UP Scheduled Appointments 05/20/2025 12:00 PM [facility] INTAKE VISIT Admitting/Central Scheduling 05/21/2025 1:40 [...] PM CDT You were discharged from the [facility] [place] Service. Please identify this service name if youcall with questions after hospitalization. * Attachments The following attachments cannot be sent through Care Everywhere. * Cefdinir (By mouth) (Nepali) * Trospium (By mouth) (Nepali) documented in this encounter Medications at Time [...] mouth daily. 90 tablet 3 05/20/2024 multivitamin-mine vmgv-RC-yneecjzx- lutein (CENTRUM SILVER) 0.4-300-250 mg-mcg-mcg tablet Take [...] as of this encounter Progress Notes * Elihsa Cabezas, R.R.T., L.R.T. - 05/14/2025 10:55 PM CDT 05/14/252254 BPAP/CPAP Therapy BPAP/CPAP Interface Full face mask Patient's Own Equipment Mask;Tubing;CPAP;Patient able to manage equipment on own Skin barrier Not indicated per interface BPAP/CPAP Mode Per Home Settings Electronically signed by: Elisha Cabezas R.R.T., L.RLudwigTLudwig 05/15/25 6:43 AM CDT * Kathya Ziegler, Pharm.DLudwig, R.Ph., BCPS - 05/14/2025 2:20 PM CDT Images from the original note were not included. Admission Medication History Note Adherence issues: No concerns Medication list source: Patient and Pharmacy or dispense records Prior to Admission Medications Med List Status: Pharmacy Complete Set By: Kathya Ziegler, Pharm.D., R.Ph., [facility] at 52:19 PM Taking? Last Dose Informant [...] Take 25 mg by mouth at bedtime. slexbhoifymp-btmjsxjn-RV-lycopene-lutein (CENTRUM SILVER) 0.4-300-250 mg-mcg-mcg tablet -- -- [...] Stuart Crocker M.D., M.S. Source Note - Kole Franciashu Trujillo APRN, C.NUbaldo, M.S.N. - 05/05/2025 10:30 AM CDT Images [...] associated hyperlipidemia and sleep apnea. PATIENT EDUCATION: [facility] Checklist For Surgical Patient's (pamphlet link: Instructions To Get Ready for Your Surgery or Procedure [facility]:[place]). RECOMMENDATIONS: Patient medically optimized for planned procedure: Yes Further Recommendations: None documented in this encounter Nursing Notes * Chantel Roman, R.N. - 05/15/2025 12:14 PM CDT The patient and family verbalized an understanding of discharge education. The patient is discharging home to self care in a wheelchair via transport service. Electronically signed by: Chantel Roman R.N. 05/15/25 12:14 PM CDT * Chantel Roman R.N. - 05/15/2025 12:13 PM CDT Problem: Risk for Compromised Skin Integrity-Other Head Of Digital(s) Goal: Risk for Compromised Skin Integrity-Other Head Of Digital(s) Outcome: Adequate for Discharge Problem: Risk for [...] Discharge Problem: Risk for Compromised Skin Integrity-Other Head Of Digital(s) Goal: Risk for Compromised Skin Integrity-Other Head Of Digital(s) Outcome: Adequate for Discharge Problem: Risk for [...] CDT Procedure visit Department of Urology in [place], [place] [address] [place] [phone] Stuart Crocker M.D., M.S. [address] [place] [phone] 05/20/2025 12:00 PM CDT Clinical Communication Virtual Review in [place], [place] [address] [place] [phone] 05/21/2025 1:40 PM CDT Comprehensive Visit Department of Dermatology in [place], [place] [address] [place] [phone] Debby Martinez APRN, C.N.P., D.N.P. [address] [place] [address] 05/22/2025 9:20 AM CDT Comprehensive Visit Department of Family Medicine, [facility], in [place], [place] [address] [place] [address] Lisa Francisco D.O. [address] [place] [address] Scheduled Orders Name Type Priority [...] Case Notes ANNA 05/05/25 Special Needs Primary Ankur Amin. TRANSURETHRAL WATERJET ABLATION OF THE PROSTATE 05/14/2025 10:34 AM CDT Hyperplasia Prostate Benign Localized Without Obstruction Case Notes ANNA 05/05/25 Special Needs Primary Ankur Amin. documented in this encounter Visit Diagnoses Diagnosis Hyperplasia Prostate Benign Localized Without Obstruction- Primary Hyperplasia Prostate Benign Localized Without Obstruction Benign Prostatic Hyperplasia Hypertrophy With Obstruction Atrial Fibrillation Unspecified (HCC) Hyperplasia Prostate Benign Localized Without Obstruction documented in this encounter Admitting Diagnoses Diagnosis [...] Given 05/14/2025 2:30 PM CDT 1 packet belladonna alkaloids-opium 16.2-60 mg suppository 1 suppository (B&O Supprettes) 1 suppository, rectal, Once, On Mon05/14/25 at 1015, For 1 dose, Intra-Op Given 05/14/2025 12:30 PM CDT 1 suppository Rectum carvediloL tablet 12.5 mg (Coreg) 12.5 mg, [...] 1330 1740 (Given - Provider: Chantel Roman R.N.)2210 (Given - Provider: Clau Peña RLudwigNLudwig) 0431 (Not Given - Provider: Carola MejiaNLudwig - Reason: Patient/family refused)1031 (Not Given - [...] Prophylaxis, surgical 1113 (Given - Provider: Maxwell Fox APRN, HYDRAULIC MODELING ENGINEER, DNAP) finasteride tablet 5 mg (Proscar) 5 [...] Every 24 hours scheduled, First dose on Mon05/15/25 at 0900, Peripheral Intravenous Catheter and Rapid Infusion Catheter: When no infusion to maintain patency. 0817 (Given - Provid er: Chantel Roman R.N.) tranexamic acid in NaCl IVPB 1,000 mg (Cyklokapron) (COMPLETED) 1,000 mg (1 g), intravenous, Once, On Mon05/14/25 at 1015, For 1 dose, Intra-Op 1108 (Given - Provider: Maxwell Fox, COLD ROLL CATCHER, HYDRAULIC MODELING ENGINEER, DNAP) Continuous Medication Order 05/13/2025 05/14/2025 05/15/2025 [...] as ordered. 1415 (New Bag - Provider: Carno Montenegro R.N.)1746 (Stopped - Provider: Chantel Roman [...] USE 1234 (New Bag - Provider: Reema Black, R.N.) NaCl 0.9 % irrigation solution 3,000 mL 3,000 mL, irrigation, Continuous, Starting on Mon05/14/25 at 1145, FOR BLADDER IRRIGATION ONLY, NOT FOR IV USE 1230 (New Bag - Provider: Reema Black R.N.)1315 (New Bag - Provider: Jose Moore) 0131 [...] documented as of this encounter Care Teams Hedge Fund Principal Relationship Specialty Start Date End Date Lisa Francisco D.O. [address], [place] [phone] PCP - General Family Medicine 11/06/24 documented as of this encounter
--- OUTSIDE RECORDS SUMMARY | 2025-05-14 10:55 | XMS_ITS | Encounter Summary ---
Author Organization [facility] Address [address] [place] [id number] Care Team Providers Care Lump Machine Operator Name Role Phone Lisa Francisco D.O. Primary Care Provider [phone] Encounter Details Date Type Department Care Team (Late st Contact Info) Description 05/14/2025 10:55 AM CDT Anesthesia Event Outpatient Procedure Center in [place], [place] [address] [place] [address] Maxwell Fox APRN, CRNA, DNAP [address] [place] [phone] Josef Bruno M.D. [address] [place] [phone] Anesthesia Record Procedure Summary Procedure Name Responsible Anesthesiologist Anesthesia Start Time Anesthesia Stop Time TRANSURETHRAL WATERJET ABLATION PROSTATE (Prostate) Maxwell Fox APRN, TUYET, DNAP 05/14/25 1055 05/14/25 1246 Events Date Time Event Comment 05/14/2025 0959 1055 An Start Machine/Equipme nt Checked Infection Precautions Followed Procedure/Site Verified NPO Status Verified Supine Standard ASA Monitors Applied 1100 An Induction 1103 An Intubation 1108 Proc Start 1110 Turnover to Proceduralist 1229 Proc Fin 1235 Turnover to ANE Staff 1235 Airway Removal Criteria Met 1241 Extubation/Airway Removed 1241 an stop data 1246 An End I completed my handoff to the receiving staff during which we 1. Identified the patient 2. Identified the responsible provider 3. Reviewed the pertinent medical history 4. Discussed the surgical course 5. Reviewed intra-op anesthesia management and issues during anesthesia 6. Set expectations for post-procedure period 7. Allowed opportunity for questions and acknowledgement of understanding. Meds Name Total fentanyl injection 50 mcg/mL 125 mcg lidocaine 2% (mg) injection 100 mg rocuronium 10 mg/mL injection 50 mg phenylephrine 100 mcg/mL injection 400 m cg ePHEDrine PF 5 mg/mL syringe injection 2 5 mg ondansetron 4 mg/2 mL injection 4 mg sugammadex 100 mg/mL injection 200 mg propofol 10 mg/mL infusion 875.26 mg propofol 10 mg/mL injection 200 mg ceFAZolin injection 2,000 mg (Ancef) 2 g tranexamic acid in NaCl IVPB 1,000 mg (C yklokapron) 1 g dexAMETHasone (Decadron) injection 4 mg/ mL 4 mg magnesium sulfate IVPB 2 g in water 50 m L (premix) 2 g Lactated Ringers Free Drip 800 mL * Agents No agents on file. * Blood No blood administrations on file. Lines, Drains, and Airways Type Details Placement Removal Indwelling Urinary Catheter Placement Date: 05/14/25; Placement Time: 1226; Inserted by: Dr. Dykes; Size: 22 Fr.; Urine Returned: Yes 05/14/25 1226 by Reema Black RLudwigNLudwig Peripheral IV Placement Date: 05/14/25; Placement Time: 1012; Catheter Size: 22 G; Orientation: Posterior, Right; Location: Hand; Site Prep: Chlorhexidine (Preferred); Technique: Anatomical landmarks; Inserted by: VIRGIE Lobato; Insertion Attempts: 1; Removal Date: 05/15/25; Removal Time: 1138; Removal Reason: Patient discharged 05/14/25 1012 by Sonia Guaman RLudwigNLudwig 05/15/25 1138 by Lupe Alonso Supraglottic Airway Placement Date: 05/14/25; Placement Time: 1103 (created via procedure documentation); Mask Ventilation: Easy mask; Brand: Unique; Size: 5; Removal Date: 05/14/25; Removal Time: 1241 05/14/25 1103 by Maxwell Fox, JANINE, FIELD ADJUSTER, DNAP 05/14/25 1241 by Pridie, Maxwell W, CONVEYOR BELT REPAIRER, FIELD ADJUSTER, DNAP documented in this encounter Social History Tobacco Use Types Packs/Day Years [...] money to buy more. Never true 05/14/20 Within the past 12 months, t he [...] things needed for daily living? No 05/14/2025 [facility] Utilities Answer Date Recorded In the past 12 months has e [employer], gas, oil, or water [employer] threatened to shut off services in your home? No 05/14/2025 Depression Answer Date Recor ded PHQ-9 Total Score (max 27) 0 04/26 Housing Stability Answer Date Recorded What is your living situation today? I have a [facility] place to live 05/14/2025 Education Answer Date Recorded What is the highest level of school you have completed or the highest degree you have received? Some college, no degree 03/22/2019 Sex and Gender Information Value Date Recorded Sex Assigned at Male 03/15/2018 8:53 AM CDT Legal Sex Male 1:32 PM [employer] Gender Identity Male 03/15/2018 8:53 AM CDT Sexual Orientation Straight 03/15/2018 8: 53 AM CDT documented as of this encounter OR Notes * Anesthesia Postprocedure Evaluation - Maxwell Fox APRN, CRNA, DNAP - 05/14/2025 12:47 PM CDT Patient: Steven Orellana Procedure Summary Date: 05/14/25 Room / Location: [address] / [facility] in [place], [place] Anesthesia Start: 1055 Anesthesia Stop: 1246 Procedures: TRANSURETHRAL WATERJET ABLATION PROSTATE (Prostate) CYSTOLITHOLAPAXY (Bladder) Diagnosis: 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 Responsible Provider: Maxwell Fox APRN, CRNA, DNAP Anesthesia Type: general ASA Status: 3 Anesthesia Type: general Last vitals Vitals Value Taken Time BP 126/69 05/14/25 12:45 Temp Pulse 57 05/14/25 12:47 Resp 16 05/14/25 12:47 SpO2 93 % 05/14/25 12:47 Vitals shown include unfiled device data. Please reference Vitals flowsheet for most recent vital signs. Anesthesia Post Evaluation Patient Disposition: dismissal Cardiovascular status: hemodynamics (HR & BP) acceptable Respiratory status: patent airway with spontaneous effort Temperature: normothermic Oxygen requirements: room air Level of consciousness: awake Pain score: pain adequately controlled and/or at baseline Post Op nausea/vomiting: none Hydration status: euvolemic Notable Events No notable events documented. * Anesthesia Procedure Notes - Maxwell Fox APRN, CRNA, DNAP - 05/14/2025 11:11 AM CDTAssociated Order(s): Airway Airway Date/Time: 05/14/2025 11:03 AM Performed by: Maxwell Fox APRN, CRNA, DNAP Authorized by: Maxwell Fox APRN, CRNA, DNAP Patient location during procedure: OR / Procedure Area PROCEDURE DETAILS: Mask difficulty assessment: easy mask Final airway type: supraglottic airway Device size: 5 Number of attempt to successful placement: 1 Supraglottic device: LMA unique Supraglottic device size: 5 Airway confirmation: bilateral breath sounds, positive ETCO2 and bilateral chest rise Other previous techniques attempted: none PRE PROCEDURE DETAILS: Pre evaluation for airway management: procedure Urgency: elective Preop assessment of probable difficulty: no difficulty anticipated Preoxygenation: bag valve mask SEDATION / ANESTHESIA Anesthesia method: anesthesia POST PROCEDURE DETAILS: Procedure outcome: successful Notable Events: no complications * Anesthesia Preprocedure Evaluation - Josef Bruno M.D. - 05/14/2025 9:59 AM CDT Preprocedure Anesthesia & H&P Assessment Procedure Summary Date/Time: 05/14/25 1042 Procedures: TRANSURETHRAL WATERJET ABLATION PROSTATE less than 100 g. CYSTOLITHOLAPAXY, 1 cm. 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 Location: [place] [address] / [facility] in [place], [place] Surgeons: Sixto Dykes M.D. Pertinent components of the patient's history including current problem list, medical history, surgical history, family history, social history, medications and allergies were reviewed. Present illness and pre-op diagnosis were confirmed. The planned surgery / procedure was verified with the patient / legal guardian. 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 (+) Stone Bladder Endocrine/Metabolic (+) Hyperlipidemia On Treatment Other (+) Obesity Body Mass Index 30-39.9 Adult (+) Repair Mitral Valve Status Post EK04/04/25; SB 1st degree AV block TTE: 04/04/25: EF 48, mild decrease RV function Hgb 12.9, plt 80, creat 1.22 On apixaban, last dose on Monday OBJECTIVE PHYSICAL EXAMINATION Airway (HEENT) Mallampati: III TM Distance: >3 FB Neck ROM: Full Mouth Opening: >3 cm Cardiovascular Rhythm: Regular Cardiovascular Assessment: cardiovascular normal Functional Capacity: >4 METS Pulmonary Pulmonary Assessment: Non labored General / Constitutional Constitutional Assessment: Obese General State of Health:: calm Neurological Neurologic Assessment: alert and alert and oriented x 3 Dental Dental Assessment: dentition intact ASSESSMENT / PLAN ANESTHESIA PLAN ASA: 3 Anesthesia Plan: general Patient seen and allergies reviewed, anesthesia plan and risks discussed directly with patient /legal guardian or through an tire room supervisor. The use of blood products not discussed Approval to Proceed: approved for anesthesia documented in this encounter Plan of Treatment Upcoming Encounters Date Type Department Care Team (Late st Contact Info) Description 05/16/2025 8:00 AM CDT Procedure visit Department of Urology in [place], [place] [address] [place] [phone] Stuart Crocker M.D., M.S. [address] [place] [phone] 05/20/2025 12:00 PM CDT Clinical Communication Virtual Review in [place], [place] [address] [place] [phone] 05/21/2025 1:40 PM CDT Comprehensive Visit Department of Dermatology in [place], [place] [address] [place] [address] [place] [phone] Debby Martinez APRN, C.N.P., D.N.P. [address] [place] [phone] 05/22/2025 9:20 AM CDT Comprehensive Visit Department of Family Medicine, [facility], in [place], [place] [address] [place] [phone] Lisa Francisco D.O. [address] [place] [phone] documented as of this encounter Procedures Procedure Name Priority Date/Time Associated Diagnosis Comments LDA ANE NON-SURGICAL AIRWAY Routine 05/14/2025 11:03 AM CDT documented in this encounter Results * LDA ANE NON-SURGICAL AIRWAY (05/14/2025 11:03 AM CDT) Narrative Maxwell Fox APRN, CRNA, DNAP - 05/14/2025 11:03 AM CDT Maxwell Fox APRN, CRNA, DNAP 05/14/2025 11:12 AM Airway Date/Time: 05/14/2025 11:03 AM Performed by: Maxwell Fox APRN, CRNA, DNAP Authorized by: Maxwell Fox APRN, CRNA, DNAP Patient location during procedure: OR / Procedure Area PROCEDURE DETAILS: Mask difficulty assessment: easy mask Final airway type: supraglottic airway Device size: 5 Number of attempt to successful placement: 1 Supraglottic device: LMA unique Supraglottic device size: 5 Airway confirmation: bilateral breath sounds, positive ETCO2 and bilateral chest rise Other previous techniques attempted: none PRE PROCEDURE DETAILS: Pre evaluation for airway management: procedure Urgency: elective Preop assessment of probable difficulty: no difficulty anticipated Preoxygenation: bag valve mask SEDATION / ANESTHESIA Anesthesia method: anesthesia POST PROCEDURE DETAILS: Procedure outcome: successful Notable Events: no complications Maxwell Fox APRN, CRNA, DNAP ANESTHESIA ORDER AUBREE Final Result documented in this encounter Visit Diagnoses Not on filedocumented in this encounter Administered Medications Inactive Administered Medications - up to 3 most recent administrations Medication Order MAR Action Action Date Dose Rate Site ceFAZolin injection 2,000 mg (Ancef) 2,000 mg (rounded from 2,675 mg = [...] indication and drug clearance factors., Indications: Prophylaxis, surgicalIndications:Prophylaxis, surgical Given 05/14/2025 11:13 AM CDT 2 g dexAMETHasone injection (Decadron) intravenous, As needed, Starting on Mon05/14/25 at 1115, Anesthesia Intra-op Given 05/14/2025 11:15 AM CDT 4 mg ePHEDrine (PF) injection intravenous, As needed, Starting on Mon05/14/25 at 1119, Anesthesia Intra-op Given 05/14/2025 11:49 AM CDT 10 mg Given 05/14/2025 11:37 AM CDT 5 mg Given 05/14/2025 11:21 AM CDT 5 mg fentaNYL injection (Sublimaze) intravenous, As needed, Starting on Mon05/14/25 at 1100, Anesthesia Intra-op Given 05/14/2025 12:25 PM CDT 25 mcg Given 05/14/2025 12:18 PM CDT 25 mcg Given 05/14/2025 11:16 AM CDT 25 mcg Lactated Ringer's intravenous, Continuous Infusion: Per Instructions PRN, Starting on Mon05/14/25 at 1057, Anesthesia Intra-op New Bag 05/14/2025 10:57 AM CDT lidocaine (PF) (cardiac) injection intravenous, As needed, Starting on Mon05/14/25 at 1101, Anesthesia Intra-op Given 05/14/2025 11:01 AM CDT 100 mg magnesium sulfate in water IVPB intravenous, Administer over 120 Minutes, As needed, Starting on Mon05/14/25 at 1132, Anesthesia Intra-op Given 05/14/2025 11:32 AM CDT 2 g ondansetron (PF) injection (Zofran) intravenous, As needed, Starting on Mon05/14/25 at 1115, Anesthesia Intra-op Given 05/14/2025 11:15 AM CDT 4 mg phenylephrine injection intravenous, As needed, Starting on Mon05/14/25 at 1103, Anesthesia Intra-op Given 05/14/2025 11:37 AM CDT 100 mc g Given 05/14/2025 11:17 AM CDT 100 mcg Given 05/14/2025 11:06 AM CDT 100 mcg propofol 10 mg/mL infusion (Diprivan) intravenous, Continuous Infusion: Per Instructions PRN, Starting on Mon05/14/25 at 1102, Anesthesia Intra-op Rate/Dose Change 05/14/2025 12:28 PM CDT 50 mcg/kg/min 32.1 mL/hr Rate/Dose Change 05/14/2025 11:50 AM CDT 80 mcg/kg/min 51. 36 mL/hr Rate/Dose Change 05/14/2025 11:14 AM CDT 100 mcg/kg/min 64 .2 mL/hr propofoL injection (Diprivan) intravenous, As needed, Starting on Mon05/14/25 at 1101, Anesthesia Intra-op Given 05/14/2025 11:01 AM CDT 200 mg rocuronium injection (Zemuron) intravenous, As needed, Starting on Mon05/14/25 at 1108, Anesthesia Intra-op Given 05/14/2025 11:08 AM CDT 50 mg sugammadex injection (Bridion) intravenous, As needed, Starting on Mon05/14/25 at 1228, Anesthesia Intra-op Given 05/14/2025 12:28 PM CDT 200 mg tranexamic acid in NaCl IVPB 1,000 mg (Cyklokapron) 1,000 mg (1 g), intravenous, Once, On Mon05/14/25 at 1015, For 1 dose, Intra-Op Given 05/14/2025 11:08 AM CDT 1 g documented in this encounter Additional Health Concerns Assessment Noted Time PHQ-9 Depression Total Score: 0 04/26/20 9:12 AM CDT documented as of this encounter Care Teams Lump Machine Operator Relationship Specialty Start Date End Date Lisa Francisco D.O. [address] [place] [phone] PCP - General Family Medicine 11/06/24 documented as of this encounter
--- OUTSIDE RECORDS SUMMARY | 2025-05-15 20:11 | XMS_ITS | Clinical Summary ---
Author Organization [facility] Address [address] [place] [address] Care Team Providers Care Charge Auditor Name Role Phone Lisa Francisco D.O. Primary Care Provider Source Comments Patient records contain information from all sites at [facility]. For routine questions regarding patient records, call [phone] during business hours, M-F 8:00 AM - 5:00 PM Central Time. Record requests for emergency care only can be directed to [phone] at any time.[facility] Allergies Active Allergy Reactions Criticality Noted Date Comments Erythromycin Hives (Reselect Reaction),Rash Medications calcium carbonate-vitam in D3 1,500 mg (600 mg calcium)-400 unit per tablet Take 1 tablet by mouth daily with breakfast. Active ascorbic acid, vitamin C, (VITAMIN C) 500 mg tablet Take by mouth daily. 12/01/19 12 Active B complex-vitamin (SUPER B-50) capsule Take 1 capsule by mouth daily. Active multivitamin-mi aydfoi-YM-kkxuq nelson-lutein (CENTRUM SILVER) 0.4-300-250 mg-mcg-mcg tablet Take 1 tablet by mouth daily. Active DME CPAPIndications :Apnea Sleep Obstructive DME Order 1 each 11 06/28/20 21 Active amoxicillin (AmoxiL) 500 mg capsule TAKE FOUR CAPSULES BY MOUTH ONE HOUR BEFORE APPOINTMENT 4 capsule 2 05/07/20 24 Active atorvastatin (Lipitor) 20 mg tablet Take 1 tablet (20 mg total) by mouth daily. 90 tablet 3 05/20/20 24 Active Additional Information Patient taking differently:20 mg oralDaily at bedtime, Reported on 05/14/2025 carvediloL (Coreg) 12.5 mg tablet Take 1 tablet (12.5 mg total) by mouth 2 (two) times a day. 180 tablet 4 05/20/20 24 Active levothyroxine (Euthyrox) 125 mcg tablet Take 1 tablet (125 mcg total) by mouth daily. 90 tablet 4 05/20/20 24 Active losartan (Cozaar) 25 mg tablet Take 1 tablet (25 mg total) by mouth daily. 90 tablet 3 05/20/20 24 Active Additional Information Patient taking differently:25 mg oralDaily at bedtime, Reported on 05/14/2025 finasteride (Proscar) 5 mg tablet Take 1 tablet (5 mg total) by mouth daily for 60 days. 30 tablet 1 04/17/20 25 025 Active Additional Information Patient taking differently:5 mg oralDaily at bedtime, Reported on 05/14/2025 tadalafiL (Cialis) 5 mg tablet Take 1 tablet (5 mg total) by mouth daily as needed for erectile dysfunction. May increase up to 4 tablets (20 mg) in 24 hours as needed for desired effect. Do not exceed 20 mg in any 24-hour period. For best results, take at least 2 hours prior to sexual activity. 30 tablet 11 04/17/20 25 026 Active polyethylene glycol (Miralax) 17 gram/dose oral powder Take 17 g by mouth 2 (two) times a day. Dissolve each 17 g dose in 240 mL (8 ounces) of beverage. Active trospium (Sanctura) 20 mg tablet Take 1 tablet (20 mg total) by mouth 2 (two) times a day as needed (for Bladder spasms). 2 tablet 1 05/15/20 25 Active cefdinir (Omnicef) 300 mg capsuleIndicati ons:Hyperplasia Prostate Benign Localized Without Obstruction Take 1 capsule (300 mg total) by mouth daily for 1 dose. Take this medication the day of stent or catheter removal 1-2 hours prior 1 capsule 5 11:41 AM CDT 05/15/20 25 025 Active apixaban (Eliquis) 5 mg tablet Take 1 tablet (5 mg total) by mouth 2 (two) times a day. Take starting 05/17 if urine remains a clear peach color 180 tablet 3 05/15/20 25 026 Active apixaban (Eliquis) 5 mg tablet Take 1 tablet (5 mg total) by mouth 2 (two) times a day. 180 tablet 3 05/20/20 24 025 Discontinued docusate sodium-benzocai ne (Enemeez Plus) 283-20 mg/5 mL enema Insert 1 enema into the rectum once for 1 dose. 1-2 hours prior to procedure 1 enema 04/17/20 025 Hospital, Clinic, or Other Facility Administered Medication Ordered Dose Route Frequency Start Date End Date Status lidocaine-EPINEPHrine 1%-1:200,000 injection 2-50 mL (XYLOCAINE W/EPI)Indications:Malignant Neoplasm Of Face Basal Cell 2 - 50 mL inj As needed 07/31/2023 Active Active Problems Problem Noted Date Diagnosed Date Atrial Fibrillation Unspecified 05/14/2025 Obesity Body Mass Index 30-39.9 Adult 05/05/2025 Stone Bladder 05/05/2025 Hyperplasia Prostate Benign Localized Without Ob struction 04/17/2025 Repair Mitral Valve Status Post 04/11/2025 Assessment & Plan (04/11/2025 1:02 PM CDT): Hernia Incisional 04/25/2022 Elevated Prostate-Specific Antigen 04/19/2021 Polyp Colon Adenomatous Personal History 019 Primary Osteoarthritis Lumbar Spine 01/30/2019 Hyperlipidemia On Treatment 03/19/2018 Hypothyroidism On Replacement 03/19/2018 Thrombocytopenia 02/09/2015 Overview (02/14/2017): Thrombocytopenia NOS Dermatochalasis Right 08/19/2009 Resolved Problems Problem Noted Date Diagnosed Date Resolved Date Flutter Atrial 04/26/2023 05/05/2025 Assessment & Plan (04/11/2025 1:22 PM CDT): COVID-19 Infection 05/22/2022 Apnea Sleep Obstructive 07/03/202004/25 Prosthesis Mitral Valve 12/16/201903/25 Pain Chest 02/08/2019 04/26/2023 Hypertension Essential Primary 03/19/2018 03/25/2019 Cardiomyopathy 09/30/2011 05/05/2025 Overview (02/14/2017): Cardiomyopathy NOS Assessment & Plan (04/10/2025 11:27 AM CDT): Orders: ECG 12 Lead; Future Encounters Date Type Department Care Team Description 05/14/2025 10:55 AM CDT Anesthesia Event Outpatient Procedure Center in [place], [place] [address] [place] [address] Maxwell Fox APRN, JET PILOT, DNAP Josef Bruno M.D. 05/14/2025 10:42 AM CDT - 05/14/2025 1:21 PM CDT Surgery Outpatient Procedure Center in [place], [place] [address] [place] [address] Sixto Dykes M.D. TRANSURETHRAL WATERJET ABLATION PROSTATE 05/14/2025 9:48 AM CDT - 05/15/2025 12:19 PM CDT Hospital Encounter [facility], Fifth Floor [address] [place] [address] Sixto Dykes M.D. Hyperplasia Prostate Benign Localized Without Obstruction (Primary Dx); Benign Prostatic Hyperplasia Hypertrophy With Obstruction Discharge Disposition: Home or Self Care 05/07/2025 Clinical Communication Department of Urology in [place], [place] [address] [place] [address] Sixto Dykes M.D. 05/05/2025 11:19 AM CDT - 05/05/2025 11:59 PM CDT Hospital Encounter Department of Laboratory Medicine and Pathology, [facility], in [place], [place] [address] [place] [phone] Francia Sharif APRN, C.N.P., M.S.N. Preanesthetic Medical Exam Discharge Disposition: Home or Self Care 05/05/2025 10:30 AM CDT Comprehensive Visit Preoperative Evaluation Center in [place], [place] [address] [place] [phone] Sixto Dykes M.D. Weerheim, Laura E, APRN, C.N.P., M.S.N. Preanesthetic Medical Exam (Primary Dx); Hyperplasia Prostate Benign Localized Without Obstruction; Repair Mitral Valve Status Post; Murmur Heart; Atrial Fibrillation Paroxysmal (HCC); Hyperlipidemia On Treatment; Obesity Body Mass Index 30-39.9 Adult; Hypothyroidism On Replacement; Thrombocytopenia; Anxiety 05/05/2025 Clinical Communication Department of Urology in [place], [place] [address] [place] [phone] Sixto Dykes M.D. 04/30/2025 10:20 AM CDT - 04/30/2025 11:59 PM CDT Hospital Encounter Department of Laboratory Medicine in [address] [phone] Sixto Dykes M.D. Urgency Urinary; Benign Prostatic Hyperplasia Hypertrophy With Obstruction; Hyperplasia Prostate Benign Localized Without Obstruction Discharge Disposition: Home or Self Care 04/17/2025 10:00 AM CDT Comprehensive Visit Department of Urology in [place], [place] [address] [place] [phone] Akilah Amin M.D. Urgency Urinary (Primary Dx); Benign Prostatic Hyperplasia Hypertrophy With Obstruction; Hyperplasia Prostate Benign Localized Without Obstruction 04/14/2025 CPAP Download Remote Patient Monitoring [place] [address] [address] [place] [address] [facility] 04/10/2025 10:45 AM CDT Office Visit Department of Cardiovascular Diseases in [place], [place] [address] [place] [phone] Vlad Andrews M.D. Cardiomyopathy (HCC) (Primary Dx); Repair Mitral Valve Status Post; Obesity Body Mass Index 30-39.9 Adult; Flutter Atrial (HCC) 04/10/2025 9:22 AM CDT - 04/10/2025 11:59 PM CDT Hospital Encounter Department of Laboratory Medicine in [place], [place] [address] [phone] Sara Cochran APRN, C.N.P. Benign Prostatic Hyperplasia Hypertrophy With Obstruction; Stone Bladder Discharge Disposition: Home or Self Care 04/04/2025 8:35 AM CDT - 04/04/2025 11:59 PM CDT Hospital Encounter Department of Laboratory Medicine in [place], [place] [address] [place] [address] Vlad Andrews M.D. Cardiomyopathy (HCC) Discharge Disposition: Home or Self Care 04/04/2025 7:39 AM CDT - 04/04/2025 8:34 AM CDT Hospital Encounter Department of Cardiovascular Diseases in [place], [place] [address] [place] [address] Vlad Andrews M.D. Cardiomyopathy (HCC) Discharge Disposition: Home or Self Care 03/14/2025 CPAP Download Remote Patient Monitoring [facility] [address] [place] [address] [facility] 03/10/2025 9:41 AM CDT - 03/10/2025 11:59 PM CDT Hospital Encounter Department of Radiology, [facility] in [place], [place] [address] [place] [phone] Sara Cochran APRN, C.N.P. Benign Prostatic Hyperplasia Hypertrophy With Obstruction; Stone Bladder Discharge Disposition: Home or Self Care 03/06/2025 10:40 AM CDT Ancillary Procedure Department of Urology 03/06/2025 10:00 AM CDT Office Visit Department of Urology in [place], [place] [address] [phone] Sara Cochran APRN, C.N.P. Benign Prostatic Hyperplasia Hypertrophy With Obstruction (Primary Dx); Stone Bladder 02/13/2025 Clinical Communication Department of Urology in [place], [place] [address] [phone] Sara Cochran APRN, C.N.P. Communication from Last 3 Months Immunizations Immunization Administration [...] Father Wilmer Orellana Colon cancer Maternal Grandmother Leeton Vesledal Obesity Maternal Grandmother Leeton Vesledal Migraines Mother Miladis Orellana Obesity Mother Miladis Orellana Unexplained Mother Mialdis Orellana Valvular heart disease Mother Miladis Orellana Diabetes Paternal Grandmother MARLEE VESLADAL Obesity Paternal Grandmother MARLEE VESLADAL Relation Name Status Comments Father Wilmer Orellana (Age 67) Maternal Grandmother Marlee Vesledal Mother Miladis Orellana (Age 72) Paternal Grandmother MARLEE VESLADAL Social History Tobacco Use Types Packs/Day Years [...] things needed for daily living? No 05/14/2025 [facility] Utilities Answer Date Recorded In the past 12 months has [facility] electric, gas, oil, or water [employer] threatened to shut off services in your home? No 05/14/2025 Depression Answer Date Recor ded PHQ-9 Total Score (max 27) 0 04/26 Housing Stability Answer Date Recorded What is your living situation today? I have a [facility] place to live 05/14/2025 Education Answer Date Recorded What is the highest level of school you have completed or the highest degree you have received? Some college, no degree 03/22/2019 Sex and Gender Information Value Date Recorded Sex Assigned at Male 03/15/2018 8:53 AM CDT Legal Sex Male 1:32 PM SIDEHAND Gender Identity Male 03/15/2018 8:53 AM CDT [...] Mass Index 33.85 05/14/2025 10:05 PM CDT Plan of Treatment Upcoming Encounters Date Type Department Care Team (Late st Contact Info) Description 05/16/2025 8:00 AM CDT Procedure visit Department of Urology in [place], [place] [address] [place] [phone] Stuart Crocker M.D., M.S. [address] [place] [phone] 05/20/2025 12:00 PM CDT Clinical Communication Virtual Review in [place], [place] 200 [place] [address] 05/21/2025 1:40 PM CDT Comprehensive Visit Department of Dermatology in [place], [place] [address] [place] [address] [place] [phone] Debby Martinez APRN, C.N.P., D.N.P. [address] [place] [phone] 05/22/2025 9:20 AM CDT Comprehensive Visit Department of Family Medicine, [facility], in [place], [place] [address] [place] [address] Lisa Francisco D.O. [address] [place] [address] Health Maintenance Due Date Last Done Comments CT Colonography 1945 Cologuard 1945 Visit: Medicare Annual Wellness 1945 RSV vaccine - (32-36 weeks) or 60+ years (1 - 1-dose 75+ series) 02/09/2019 COVID-19 Vaccine ( - 2023- season) 2024 09/03/2021, 11/30/2020, 11/09/2020 Depression Screening (Annual PHQ-2) 09/25/2024 Thyroid Stimulating Hormone (TSH) test for thyroid function 05/06/2025 05/06/2024, 02/23/2024, 04/04/2023, Additional history exists Visit: Annual, age 65+ (or Medicare and <65) 05/20/2025 05/20/2024 Influenza Vaccine (#1) 2025 , 07/10/2023, 07/12/2022, Additional history exists Colonoscopy 08/22/2025 08/22/2023, 03/25, 04/06/2018, Additional history exists Colorectal Cancer Surveillance 08/22/2025 Creatinine Level (Kidney Function Test) 05/05/2026 05/05/2025, 05/06/2024, 04/30/2024, Additional history exists Potassium Level 05/05/2026 05/05/2025, 04/25, 04/30/2024, Additional history exists Sodium Level 05/05/2026 05/05/2025, 04/25, 04/30/2024, Additional history exists DTaP,Tdap,and Td Vaccines (4 - Td or Tdap) 04/25/2032 04/25/2022, 07/02/2012, 07/02/2012, Additional history exists Hepatitis A Vaccines Completed 07/02/2012, 11/25/20 11 Pneumococcal vaccine (50+ years) Completed 02/09/2015, 09/30/2011, 12/15/2003 Zoster Vaccines Completed 09/29/2020, 03/25, 06/22/2009 Fall Risk Screen (Annual) Completed 05/14/2025 IPV Vaccines Aged Out No longer eligi ble based on patient's age to complete this topic Procedures Procedure Name Priority Date/Time Associated Diagnosis Comments PATIENT'S OWN CPAP/BIPAP Routine 05/15/2025 6:43 AM CDT ADULT OXYGEN THERAPY Routine 05/14/2025 1:04 PM CDT ADULT OXYGEN THERAPY Routine 05/14/2025 1:04 PM CDT LDA ANE NON-SURGICAL AIRWAY Routine 05/14/2025 11:03 AM CDT CYSTOLITHOLAPAXY 05/14/2025 10:34 AM CDT 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 TRANSURETHRAL WATERJET ABLATION OF THE PROSTATE 05/14/2025 10:34 AM CDT 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 BASIC METABOLIC PANEL, S/P Routine 05/05/2025 11:50 AM CDT Preanesthetic Medical Exam CBC WITH DIFFERENTIAL, B Routine 05/05/2025 11:50 AM CDT Preanesthetic Medical Exam URINALYSIS WITH MICROSCOPIC Routine 04/30/2025 10:28 AM CDT Urgency Urinary Benign Prostatic Hyperplasia Hypertrophy With Obstruction Hyperplasia Prostate Benign Localized Without Obstruction BACTERIAL CULTURE, AEROBIC + SUSC, URINE Routine 04/30/2025 10:28 AM CDT Urgency Urinary Benign Prostatic Hyperplasia Hypertrophy With Obstruction Hyperplasia Prostate Benign Localized Without Obstruction URINALYSIS WITH MICROSCOPIC Routine 04/10/2025 9:24 AM CDT Benign Prostatic Hyperplasia Hypertrophy With Obstruction Stone Bladder (TTE) 2D ECHO DOPPLER COLOR Routine 04/04/2025 8:57 AM CDT Cardiomyopathy (HCC) ECG Routine 04/04/2025 8:46 AM CDT Cardiomyopathy (HCC) US PROSTATE TRANSRECTAL RAD - Routine (most inpatients and all outpatients) 03/10/2025 10:25 AM CDT Benign Prostatic Hyperplasia Hypertrophy With Obstruction Stone Bladder UROLOGY IMAGE EXAM Routine 03/06/2025 10:40 AM CDT URO CYSTOSCOPY (GENERAL) Routine 03/06/2025 10:00 AM CDT Benign Prostatic Hyperplasia Hypertrophy With Obstruction Stone Bladder THYROID-STIMULATING HORMONE-SENSITIVE (S-TSH) Routine 05/06/2024 9:40 AM CDT Hyperlipidemia On Treatment from Last 3 Months or Most Recently Relevant to Health Maintenance Results * LDA ANE NON-SURGICAL AIRWAY (05/14/2025 [...] CRNA, DNAP ANESTHESIA ORDER AUBREE Final Result * (ABNORMAL) CBC with Differential, Blood (05/05/2025 [...] C.N.P., M.S.N. LAB BLOOD ADD-ON Final Result [facility] [address] [place] [address], [facility] DTL [facility] [address] [place] [address] [facility] [address] [place] [address] * (ABNORMAL) Basic Metabolic Panel (05/05/2025 11:50 AM CDT) Pathologist [facility] Potassium, S 5.0 3.6 - 5.2 mmol/L [...] C.N.P., M.S.N. LAB BLOOD ADD-ON Final Result [facility] [address] [place] [address], [facility] DTL [facility] [address] [place] [address] * Bacterial Culture, Aerobic + Susceptibility, Urine (04/30/2025 10:28 AM CDT) Urine Culture No growth after 1 day of incubation. 05/01/2025 11:44 AM CDT [facility] Urine (Urine, Midstream) 04/30/2025 10:28 AM CDT 04/30/2025 6:39 PM CDT Comment:Specimen Source Site : Urine us Sixto Dykes M.D. LAB MICROBIOLOGY - GENERAL OR DERABLES Final Result [facility] [address] [place] [address], [facility] MKTO [facility] in [place] [address] [place] [address] * (ABNORMAL) Urinalysis, with Microscopic: Urine, Midstream (04/30/2025 10:28 AM CDT) Only the most recent of2 resultswithin the time period is included. Source Urine, Urine, Midstream 04/30/2025 1:29 PM [...] 8.0 04/30/2025 2:18 PM CDT OWAT Specific [place] 1.023 1.001 - 1.035 04/30/2025 2:18 PM [...] M.D. LAB URINE ORDERABLES Final Re sult [facility] [address] [place] [address], [facility] in [place] [address] [place] [address] * (TTE) 2D ECHO DOPPLER COLOR (04/04/2025 8:57 AM CDT) Ejection Fraction 48 MC CV EIMS Sinus [...] valve regurgitation. Status post mitral valve repair (elsewhereDec-1998). Mitral valve diastolic mean Doppler gradient 3 [...] complete report, see the Order-Level Documents. us Vlad Andrews M.D. CV ECHO PROCEDURES Final R esult * ECG 12 Lead (04/04/2025 8:46 AM CDT) Ventricular Rate ECG/Min 52 BPM MUSE ME Interval 214 ms MUSE QRSD Interval 110 ms MUSE QT Interval 456 ms MUSE QTC Interval 424 ms MUSE P [place] 39 degrees MUSE R [place] -16 degrees MUSE T Wave [place] -37 degrees MUSE 04/04/2025 8:46 AM CDT [...] ECG ORDERABLES Final Resu lt MUSE NA * US Prostate Transrectal (03/10/2025 10:25 AM CDT) Anatomical Region Laterality Modality Pelvis, Ultrasound RST LOS, Ultrasound ARZ LOS, Ultrasound FLA LOS N/A Ultrasound Impressions 03/10/2025 10:36 AM CDT Enlarged prostate, compatible with benign prostatic hypertrophy. If prostate malignancy is a concern, MRI is more sensitive. Narrative 03/10/2025 10:36 AM CDT EXAM: US PROSTATE TRANSRECTAL COMPARISON: CT abdomen/pelvis 02/11/2025 FINDINGS: Central gland: Enlarged and nodular. Peripheral zone: No suspicious nodule identified. AP: 4.9 cm Trans: 5.5 cm Lon.9 cm Estimated volume: 96 cc Seminal vesicles: Normal. Procedure Note Sly Castro M.D. - 03/10/2025 EXAM: US PROSTATE TRANSRECTAL COMPARISON: CT abdomen/pelvis 02/11/2025 FINDINGS: Central gland: Enlarged and nodular. Peripheral zone: No suspicious nodule identified. AP: 4.9 cm Trans: 5.5 cm Lon.9 cm Estimated volume: 96 cc Seminal vesicles: Normal. IMPRESSION: Enlarged prostate, compatible with benign prostatic hypertrophy. Ifprostate malignancy is a concern, MRI is more sensitive. us Sara Cochran APRN, C.N.P. IMG US PROCEDURES Final Result * Urology Image Exam-Urology Image Exam (03/06/2025 10:40 AM CDT) 03/06/2025 10:3 8 AM CDT Narrative [facility] - 03/06/2025 10:55 AM CDT This order has been created and auto-finalized to support the import of images acquired without order. The clinical documentation to support these images can be found on the encounter that produced images. us Provider Not In System IMG NON RAD IMAGING PROCE DURES Final Result [facility] NA * Cystoscopy (03/06/2025 10:00 AM CDT) Narrative Sara Cochran APRN, C.N.P. - 03/06/2025 10:00 AM CDT Sara Cochran APRN, C.N.P. 03/21/2025 2:14 PM Cystoscopy Performed by: Sara Cochran APRN, C.N.P. Authorized by: Sara Cochran APRN, C.N.P. Care team members present 1. Sara Cochran APRN, C.N.P. 2. Carmita Clemens R.N. IMPRESSION BPH (Bladder stone) Additional procedures performed: cystoscopy PROCEDURE DETAILS: Anterior urethra: Normal: yes Posterior urethra: Normal: yes Prostate - estimated length (cm): 5 Sphincter: Characteristics: Coapting Ureters: Characteristics: Unable to identify Unable to identify - side: Bilateral Bladder: Normal: no Trabeculation: Small Stones present: yes (Tom stone) Number: 1 Size of largest (cm): 3 Fistula visualized: no Capacity: Moderate Quality of urine: Clear Residual upon entry: Small Residual volume (cc): 50 Retroflex view: Normal: no Prostate: Character: Intravesical protrusion Blue light imaging agent used: no A flexible cystoscope was inserted through the urethra into the bladder. Cystoscope was removed at the end of procedure. CONSENT Consent obtained: verbal Consent given by: patient The benefits, risks and alternatives to the procedure and the potential need for sedation or anesthesia as well as the names, roles, and responsibilities of healthcare team members performing significant interventional tasks were discussed with the patient and/or decision maker. UNIVERSAL PROTOCOL All relevant documentation and testing were reviewed and available. All required blood products, implants, devices and or special equipment were made available as applicable. Pre-procedure verification was conducted and the correct site was marked if required. A fire risk and smoke assessment were done as applicable. The procedural time-out to verify correct patient, correct side/site, and procedure was conducted prior to performing the procedure and confirmed in a procedural pause. PRE-PROCEDURE DETAILS Procedure purpose: Diagnostic Indications: Bladder stone, Benign Prostatic Hypertrophy with lower urinary tract symptoms Appropriate hand hygiene, gown, cap, mask, protective eyewear, sterile gloves, skin preparation, sterile drape, and strict aseptic technique were utilized as applicable for the procedure.: yes Site preparation: Povidone-iodine SEDATION / ANESTHESIA Anesthesia method: topical application Topical application type: lidocaine POST-PROCEDURE DETAILS Procedure completed successfully: yes Complications: no apparent complications us Sara Cochran APRN, C.N.P. UROLOGY ORDERABLE S Final Result * S-TSH (Thyroid-Stimulating Hormone - Sensitive) (05/06/2024 9:40 AM CDT) TSH, Sensitive 1.6 0.3 - 4.2 mIU/L 05/06/2024 1:29 PM CDT OWAT Blood (Blood, Venous) 05/06/2024 9:40 AM CDT 05/06/2024 12:46 PM CDT Sly Yanes M.D. LAB BLOOD ADD-ON Final Result [facility] [address] [place] [address], [place] OWAT [facility] [place] [address] [place] [address] from Last 3 Months or Most Recently Relevant to Health Maintenance Insurance MEDICARE [employer] Advance Directives For more information, please contact: [phone] * Full Code (Latest Code Status on File) Date Activated Date Inactivated Comments 05/14/2025 1:04 PM 05/15/2025 2:24 PM Question Answer Comments Full Code: Discussed * Full Code Date Activated Date Inactivated Comments 05/14/2025 10:12 AM 05/14/2025 1:04 PM Question Answer Comments Full Code: Discussed Care Teams Charge Auditor Relationship Specialty Start Date End Date Lisa Francisco D.O. NPJayne: [phone] [address] [place] [phone] PCP - General Family Medicine 11/06/24
--- OUTSIDE RECORDS SUMMARY | 2025-05-15 20:11 | XMS_ITS | Encounter Summary ---
Author Organization [facility] Address [address] [place] [address] Care Team Providers Care Television Program Director Name Role Phone Lisa Francisco D.O. Primary Care Provider Encounter Details Date Type Department Care Team (Late st Contact Info) Description 03/14/2025 CPAP Download Remote Patient Monitoring [facility] [address] [place] [address] [facility], Provider, Social History Tobacco Use Types Packs/Day Years Used Date Smoking Tobacco: Never Passive Smoke Exposure: Never Smokeless Tobacco: Never Alcohol Use Standard Drinks/Week Comments Yes 1 (1 standard drink = 0.6 oz pur e alcohol) [facility] Utilities Answer Date Recorded In the past 12 months has [facility] [employer], gas, oil, or water [employer] threatened to shut off services in your [...] your living situation today? I have a [facility] place to live 03/03/2025 Education Answer Date Recorded What is the highest level of school you have completed or the highest degree you have received? 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 [address] [place] [phone] 05/20/2025 12:00 PM CDT Clinical Communication Virtual Review in [place], [place] 200 [place] [address] 05/21/2025 1:40 PM CDT Comprehensive Visit Department of Dermatology in [address] [place] [phone] Debby Martinez APRN, C.N.P., D.N.P. [address] [place] [phone] 05/22/2025 9:20 AM CDT Comprehensive Visit Department of Family Medicine, [facility], in [place], [place] [address] [address] Lisa Francisco D.O. [address] [place] [phone] documented as of this encounter Visit Diagnoses Not on filedocumented in this encounter Additional Health Concerns Assessment Noted Time PHQ-9 Depression Total Score: 0 04/26/20 9:12 AM CDT documented as of this encounter Care Teams Television Program Director Relationship Specialty Start Date End Date Lisa Francisco D.O. [address] [place] [address] PCP - General Family Medicine 11/06/24 documented as of this encounter
--- OUTSIDE RECORDS SUMMARY | 2025-05-15 20:11 | XMS_ITS | Clinical Summary ---
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 Gender Identity Not on file Sexual Orientation Not on file Obstetrics History Last Filed Vital Signs Vital Sign Reading Time Taken Comments Blood Pressure 129/65 08/22/2023 1:37 PM ENVIRONMENTAL STUDIES FACULTY MEMBER Pulse 60 08/22/2023 1:37 PM ENVIRONMENTAL STUDIES FACULTY MEMBER Temperature 36.1 C (97 F) 08/22/2023 1:37 PM ENVIRONMENTAL STUDIES FACULTY MEMBER Respiratory Rate 18 08/22/2023 1:37 PM ENVIRONMENTAL STUDIES FACULTY MEMBER Oxygen Saturation 99% 08/22/2023 1:37 PM ENVIRONMENTAL STUDIES FACULTY MEMBER Inhaled Oxygen Concentration - - Weight 102.2 kg (225 lb 4.8 oz) 023 11:16 AM ENVIRONMENTAL STUDIES FACULTY MEMBER Height 182.9 cm (6' 0.01) 08/22/2023 1 1:16 AM ENVIRONMENTAL STUDIES FACULTY MEMBER Body Mass Index 30.55 08/22/2023 11:16 AM ENVIRONMENTAL STUDIES FACULTY MEMBER Plan of Treatment Health Maintenance Due Date Last Done Comments Tetanus booster 02/09/1956 Depression screening for age 12+ 1956 Zoster (shingles) series for age 50+ (2 of 3) 08/17/2009 06/22/2009 Pneumococcal series for age 50+ (2 of 2 - PCV) 09/30/2012 09/30/2011, 11/26/2003 RSV vaccine for adults or (1 - 1-dose 75+ series) 02/09/2019 BMI (ht and wt on same day) for age 18+ 06/21/2022 06/21/2021 COVID-19 vaccine series ( season) 2024 09/03/2021, 11/30/2020, 11/09/2020 Influenza Vaccine (#1) 2025 2, 06/22/2009 Hepatitis B series for 19+ Aged Out N o longer eligible based on patient's age to complete this topic Insurance ([employer]) [id number] [address] [id number] MEDICARE PART B HB ONLY BLUE CROSS CROW BLUE HB ONLY [facility] [address] MEDICARE PART A HB ONLY Advance Directives [...] 8:06 AM 11/15/2012 8:57 AM Care Teams Geotechnical Operating Engineer Relationship Specialty Start Date End Date Sly Yanes MD PCP - General Family Practice 03/03/16
[2025-05-15 20:12] VITALS: BP 123/70; PULSE 74; RESP 14; TEMP 36.9; O2SAT 95; BMI 33.9
--- OUTSIDE RECORDS SUMMARY | 2025-05-15 20:12 | XMS_ITS | Encounter Summary ---
Author Organization [facility] Address [address] [place] [address] Care Team Providers Care Doll Eye Setter Name Role Phone Lisa Francisco D.O. Primary Care Provider [phone] Encounter Details Date Type Department Care Team (Late st Contact Info) Description 05/07/2025 Clinical Communication Department of Urology in [place], [place] [address] [place] [phone] Sixto Dykes M.D. [address] [place] [phone] Social History Tobacco Use Types Packs/Day Years Used Date Smoking Tobacco: Never Passive Smoke Exposure: Never Smokeless Tobacco: Never Alcohol Use Standard Drinks/Week Comments Yes 1 (1 standard drink = 0.6 oz pur e alcohol) [facility] Utilities Answer Date Recorded In the past 12 months has [facility] [employer], gas, oil, or water [employer] threatened to shut off services in your [...] your living situation today? I have a [facility] place to live 03/03/2025 Education Answer Date Recorded What is the highest level of school you have completed or the highest degree you have received? 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 [address] [place] [phone] 05/20/2025 12:00 PM CDT Clinical Communication Virtual Review in [place], [place] [address] [place] [address] 05/21/2025 1:40 PM CDT Comprehensive Visit Department of Dermatology in [address] [place] [phone] Debby Martinez APRN, C.N.P., D.N.P. [address] [place] [address] 05/22/2025 9:20 AM CDT Comprehensive Visit Department of Family Medicine, [facility], in [place], [place] [address] [phone] Lisa Francisco D.O. [address] [place] [phone] documented as of this encounter Visit Diagnoses Not on filedocumented in this encounter Additional Health Concerns Assessment Noted Time PHQ-9 Depression Total Score: 0 04/26/20 9:12 AM CDT documented as of this encounter Care Teams Doll Eye Setter Relationship Specialty Start Date End Date Lisa Francisco D.O. [address] [phone] PCP - General Family Medicine 11/06/24 documented as of this encounter
--- OUTSIDE RECORDS SUMMARY | 2025-05-15 20:12 | XMS_ITS | Encounter Summary ---
Author Organization [facility] Address [address] [place] [address] Care Team Providers Care Project Coordinator Rn Name Role Phone Lisa Francisco D.O. Primary Care Provider [phone] Encounter Details Date Type Department Care Team (Late st Contact Info) Description 05/05/2025 Clinical Communication Department of Urology in [place], [place] [address] [place] [phone] Sixto Dykes M.D. [address] [place] [phone] Social History Tobacco Use Types Packs/Day Years Used Date Smoking Tobacco: Never Passive Smoke Exposure: Never Smokeless Tobacco: Never Alcohol Use Standard Drinks/Week Comments Yes 1 (1 standard drink = 0.6 oz pur e alcohol) [facility] Utilities Answer Date Recorded In the past 12 months has [facility] [employer], gas, oil, or water [employer] threatened to shut off services in your [...] your living situation today? I have a [facility] place to live 03/03/2025 Education Answer Date Recorded What is the highest level of school you have completed or the highest degree you have received? 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 [address] [place] [phone] 05/20/2025 12:00 PM CDT Clinical Communication Virtual Review in [place], [place] [address] [place] [address] 05/21/2025 1:40 PM CDT Comprehensive Visit Department of Dermatology in [address] [place] [phone] Debby Martinez APRN, C.N.P., D.N.P. [address] [place] [address] 05/22/2025 9:20 AM CDT Comprehensive Visit Department of Family Medicine, [facility], in [place], [place] [address], [place] [phone] Lisa Francisco D.O. [address] [place] [phone] documented as of this encounter Visit Diagnoses Not on filedocumented in this encounter Additional Health Concerns Assessment Noted Time PHQ-9 Depression Total Score: 0 04/26/20 9:12 AM CDT documented as of this encounter Care Teams Project Coordinator Rn Relationship Specialty Start Date End Date Lisa Francisco D.O. [address] [phone] PCP - General Family Medicine 11/06/24 documented as of this encounter
--- OUTSIDE RECORDS SUMMARY | 2025-05-15 20:12 | XMS_ITS | Encounter Summary ---
Author Organization [facility] Address [address] [place] [address] Care Team Providers Care Special Effects Specialist Name Role Phone Lisa Francisco D.O. Primary Care Provider [phone] Encounter Details Date Type Department Care Team (Late st Contact Info) Description 04/14/2025 CPAP Download Remote Patient Monitoring [facility] 5 [address] [place] [address] [facility], Provider, Social History Tobacco Use Types Packs/Day [...] things needed for daily living? No 05/14/2025 [facility] Utilities Answer Date Recorded In the past 12 months has th e electric, gas, oil, or water company threatened to shut off services in your home? No 05/14/2025 Depression Answer Date Recor ded PHQ-9 Total Score (max 27) 0 04/26 Housing Stability Answer Date Recorded What is your living situation today? I have a [facility] place to live 05/14/2025 Education Answer Date Recorded What is the highest level of school you have completed or the highest degree you have received? 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 [address] [place] [phone] 05/20/2025 12:00 PM CDT Clinical Communication Virtual Review in [place], [place] 200 [place] [address] 05/21/2025 1:40 PM CDT Comprehensive Visit Department of Dermatology in [address] [place] [phone] Debby Martinez APRN, C.N.P., D.N.P. [address] [place] [phone] 05/22/2025 9:20 AM CDT Comprehensive Visit Department of Family Medicine, [facility], in [place], [place] [address], [place] [phone] Lisa Francisco D.O. [address] [place] [phone] documented as of this encounter Visit Diagnoses Not on filedocumented in this encounter Additional Health Concerns Assessment Noted Time PHQ-9 Depression Total Score: 0 04/26/20 9:12 AM CDT documented as of this encounter Care Teams Special Effects Specialist Relationship Specialty Start Date End Date Lisa Francisco D.O. [address] [place] [phone] PCP - General Family Medicine 11/06/24 documented as of this encounter
--- NOTE | 2025-05-15 20:27 | ED.MALEGU ---
HPI - Male Genitourinary General Date Seen: 05/15/25 Chief complaint: Urogenital Problems, Male Stated complaint: Cath. issues Time Seen by Provider: 05/15/25 20:10 Source: patient Mode of arrival: ambulatory Limitations: no limitations History of Present Illness HPI Narrative: Patient is an 80-year-old male presenting for a clogged Mckeon catheter. He had a procedure on his prostate yesterday [facility] and was kept overnight. They were doing CBI throughout the night. CBI was stopped this morning as urine was peach colored. They replaced the Mckeon and discharge him home. Did not send him home with anything to flush the Mckeon case there is any further clogs. States he has not had any urinary output since 15:00. Is only complaint other than that is some mild bladder discomfort. Denies fevers, chills, chest pain, shortness of breath, lightheadedness, dizziness. No other concerns noted. Related Data Home Medications ?Medication ?Instructions ?Recorded ?Confirmed apixaban 5 mg tablet (Eliquis) 5 mg PO BID 05/15/25 05/15/25 atorvastatin 20 mg tablet 20 mg PO DAILY 05/15/25 05/15/25 carvedilol 12.5 mg tablet 12.5 mg PO BID 05/15/25 05/15/25 cefdinir 300 mg capsule mg PO DAILY 05/15/25 finasteride 5 mg tablet 5 mg PO DAILY 05/15/25 05/15/25 levothyroxine 125 mcg tablet 125 mcg PO DAILY 05/15/25 05/15/25 losartan 25 mg tablet 25 mg PO DAILY 05/15/25 05/15/25 tadalafil 5 mg tablet mg PO 05/15/25 Allergies Allergy/AdvReac Type Severity Reaction Status Date / Time erythromycin base Allergy Intermediate Rash Verified 05/15/25 20:20 Review of Systems Status of ROS: Reports: 10 or more systems reviewed and unremarkable except as noted in History and below PFSH PFSH Social History Smoking Status: Never smoker Do you use any of these nicotine containing products: None How often do you have a drink containing alcohol: never How often do you have six or more drinks on one occasion: Never AUDIT-C Alcohol total score: 0 Non-prescribed substance use: denies use Exam Narrative: Exam Narrative: Const: Well-nourished, Well-developed, in mild distress Eyes: PERRL, no conjunctival injection, and symmetrical lids HENT: Atraumatic external nose and ears. Moist mucous membranes. GI: Mild suprapubic will discomfort, Nondistended, No rebound or guarding. MSK:Extremities w/o deformity, Normal Active ROM Skin: Warm, Dry. No rashes or lesions. Neuro: Normal Muscle tone, No focal neurological deficits. Psych: Awake, Alert, & Oriented x3. Appropriate mood and affect. Const: Vital Signs, click to edit/add: Vital Signs - 24 hr 05/15/25 20:12 Temperature 98.5 F Pulse Rate [Pulse Oximeter] 74 Respiratory Rate 14 Blood Pressure [Le ft Upper Arm] 123/70 Pulse Oximetry 95 Oxygen Delivery Me thod Room Air Course Vital Signs Vital signs: Initial Vital Signs Temperature 98.5 F 05/15/25 20:12 Temperature Source Temporal Artery Scan 05/15/25 20:12 Pulse Rate 74 05/15/25 20:12 Respiratory Rate 14 05/15/25 20:12 Blood Pressure 123/70 05/15/25 20:12 Blood Pressure Mean 87 05/15/25 20:12 Blood Pressure Position Standing 05/15/25 20:12 Pulse Oximetry 95 05/15/25 20:12 Oxygen Delivery Method Room Air 05/15/25 20:12 Vital Signs Temperature 98.5 F 05/15/25 20:12 Pulse Rate 74 05/15/25 20:12 Respiratory Rate 14 05/15/25 20:12 Blood Pressure 123/70 05/15/25 20:12 Pulse Oximetry 95 05/15/25 20:12 Oxygen Delivery Method Room Air 05/15/25 20:12 Temperature 98.5 F 05/15/25 20:12 Pulse Rate 74 05/15/25 20:12 Respiratory Rate 14 05/15/25 20:12 Blood Pressure 123/70 05/15/25 20:12 Pulse Oximetry 95 05/15/25 20:12 Oxygen Delivery Method Room Air 05/15/25 20:12 MDM - Male Genitourinary MDM Narrative Medical decision making narrative: Patient is an 80-year-old male presenting for blockage of his Mckeon catheter. The Mckeon catheter is flushed multiple times and we were able to get the blood clots out. It is now working properly. Will discharge him home with a kit to flush his Mckeon at home. His is comfortable with this plan. He is scheduled to have the Mckeon removed tomorrow morning Discharge Plan Discharge Clinical Impression: Complication, blocked Mckeon catheter Qualifiers: Encounter type: initial encounter Qualified Code(s): T83.091A - Other mechanical complication of indwelling urethral catheter, initial encounter Patient Disposition: Home, Self-Care Condition: Improved Instructions: Mckeon Catheter Placement and Care (ED) Additional Instructions: Use the provided material to flush his Mckeon catheter if it gets blocked again. Return for new worsening symptoms. Make sure to go to your urology appointment in the morning. Prescriptions: No Action atorvastatin 20 mg tablet 20 mg PO DAILY carvedilol 12.5 mg tablet 12.5 mg PO BID levothyroxine 125 mcg tablet 125 mcg PO DAILY losartan 25 mg tablet 25 mg PO DAILY cefdinir 300 mg capsule PO DAILY finasteride 5 mg tablet 5 mg PO DAILY tadalafil 5 mg tablet PO Eliquis 5 mg tablet 5 mg PO BID Follow Up/Referrals: Provider,Not a Local [Primary Care Provider, Family Practice] Stand Alone Forms: [employer] Info Instructions
== END 2025-05-15 21:40 | disposition home or self-care (01) ==
PROVIDERS: Emergency Provider Student in an Organized Health Care Education/Training Program
DX: T83.091A Other mechanical complication of indwelling urethral catheter, initial encounter (principal)
CPT/HCPCS: 99282; 99283